=== PATIENT | male | born 1975 | race Caucasian/White ===

== ENCOUNTER 2024-04-25 11:02 | Emergency (ER) | payer OTHER, SELFPAY ==
--- NOTE | ~2024-04-25 | CT_ITS ---
EXAMINATION: CT abdomen pelvis w con DATE: 04/25/2024 14:31 INDICATION: Right buttocks abscess. TECHNIQUE: Computed tomography (CT) of the abdomen and pelvis was performed with 100 mL Omnipaque 350 intravenous contrast. Automated exposure control and iterative reconstruction technique were employe d. The dose-length product was 400.94 mGy-cm. COMPARISON: None. FINDINGS: The visualized portions of the lung bases are clear without pneumonia or pleural effusion. The heart size is normal. No pericardial effusion. The liver demonstrates focal steatosis adjacent to the ligamentum teres. The gallbladder, spleen, pancreas, adrenal glands, and left kidney are normal. There is cortical thinning of right kidney. The bladder is distended. The appendix is normal. There is a 14 x 18 mm right external iliac lymph node. There is no ascites. There is a 12.2 x 7.3 x 7.8 cm subcutaneous mass in the medial right buttock with infiltrative margin. There is severe lower lumbar spondylosis. IMPRESSION: 1. 4.2 x 7.3 x 7.8 cm mass in the medial right buttock, consistent with phlegmon versus early abscess . 2. Mildly enlarged right external iliac lymph node, likely reactive. Reviewed, dictated and finalized at location A. L EQUIPMENT OPERATOR IMPRESSION: 1. 4.2 x 7.3 x 7.8 cm mass in the medial right buttock, consistent with phlegmo n versus early abscess. 2. Mildly enlarged right external iliac lymph node, likely reactive.
[2024-04-25 11:05] VITALS: BP 153/101; PULSE 154; RESP 16; TEMP 36.8; O2SAT 100
[2024-04-25 11:07] VITALS: BP 158/115; PULSE 160; RESP 18; TEMP 36.2; O2SAT 99
--- NOTE | 2024-04-25 11:14 | ECG_ITS ---
Test Date: 2024-04-25 11:21:17 Measurements Intervals [place] Rate: 136 P: 85 MI: 146 QRS: 134 QRSD: 99 T: 42 QT: 304 QTc: 458 Interpretive Statements SINUS TACHYCARDIA ANTERIOR INFARCT, AGE INDETERMINATE HIGH LATERAL INFARCT, AGE INDETERMINATE BORDERLINE ST-T WAVE ABNORMALITY- INFERIOR LEADS BASELINE WANDER- II, V1, V3 ABNORMAL ECG No previous ECG available for comparison Electronically Signed On 04-25-2024 12:07:54 SHINGLES ROOFER by Price Robles D.O.
[2024-04-25 11:27] LABS: Basophils Absolute Auto 0.1 K/mm3 (0.0-0.1); Basophils Percent Auto 0.4 % (0.2-1.2); Eosinophils Absolute Auto 0.1 K/mm3 (0-0.3); Eosinophils Percent Auto 0.6 % (0-4.4); Hemoglobin 15.3 g/dL (14.0-18.0); Immature Granulocyte Absolute 0.05 K/mm3 (0.00-0.031); Immature Granulocyte Percent A 0.3 % (0-0.5); Lymphocytes Absolute Auto 2.52 K/mm3 (0.9-3.2); Lymphocytes Percent Auto 17.4 % (18.3-44.2); Mean Corpuscular HGB Conc 34.8 g/dl (32-36); Mean Corpuscular Hemoglobin 29.1 pg (26-34); Mean Corpuscular Volume 83.7 fl (80-100); Mean Platelet Volume 8.9 fl (7.4-10.4); Monocytes Absolute Auto 1.1 K/mm3 (0.1-0.6); Monocytes Percent Auto 7.5 % (2.6-8.5); Neutrophils Absolute Auto 10.7 K/mm3 (1.3-6.7); Neutrophils Percent Auto 73.8 % (45.5-73.1); Platelet Count Result 534 k/mm3 (150-375); Red Blood Count 5.26 M/mm3 (4.6-6.20); Red Cell Distribution Width 11.8 % (11.5-14.5); White Blood Count 14.5 K/mm3 (4.5-10.0)
[2024-04-25 11:45] LABS: Alanine Aminotransferase 28 U/L (6-50); Albumin Level 4.4 g/dL (3.5-5.1); Alkaline Phosphatase 232 U/L (38-126); Anion Gap 13 mmol/L (4-12); Aspartate Amino Transferase 28 U/L (17-59); Bilirubin,Total 0.9 mg/dL (0.2-1.3); Blood Urea Nitrogen 6 mg/dL (9-20); Calcium 9.6 mg/dL (8.4-10.2); Carbon Dioxide 25 mmol/L (22-30); Chloride 93 mmol/L (98-107); Estimated CRCL calculation 111 ml/min; Estimated Glomerular Filt Rate > 60; Glucose 471 mg/dL (65-110); Sodium 131 mmol/L (137-145)
--- NOTE | 2024-04-25 14:14 | ED.GENADULT ---
HPI - General Adult General Chief complaint: Unspecified Stated complaint: rectal abscess Time Seen by Provider: 04/25/24 13:22 History of Present Illness HPI narrative: 49-year-old male presenting with an abscess. States that for the last 4-5 days he has had a lot of swelling and pain in his right buttocks. States that has been draining blood and pus. States he has not really been eating much so he has not been taking any of his meds including his diabetes meds. States that he has been drinking plenty of fluids. His friend made him come in today for evaluation. He denies any other complaints or concerns. Related Data Home Medications Medication Instructions Recorded Confirmed aspirin 81 mg tablet,delayed 81 mg PO DAILY 11/14/19 02/27/20 release (Adult Low Dose Aspirin) Allergies Allergy/AdvReac Type Severity Reaction Status Date / Time No Known Allergies Allergy Verified 01/08/21 07:58 Review of Systems Review of Systems: All systems reviewed & are unremarkable except as noted in HPI and below PMFSH Past Medical History Medical History (Updated 04/25/24 @ 17:02 by Leeann Aquino MD) Coronary artery disease Essential (primary) hypertension Mixed hyperlipidemia Type 2 diabetes mellitus with hyperglycemia Family History Family History Grandparent Family history of type 2 diabetes mellitus Other Cerebrovascular accident Family history of cardiovascular disease Family history of lung cancer Hypertension Social History Social History Smoking status: Never smoker Alcohol intake: current Exam Narrative: GENERAL: Nontoxic, appears uncomfortable, pleasant cooperative HEAD: Normocephalic, atraumatic. EYES: PERRLA and EOMI. ENT: Grossly unremarkable. NECK: Supple. CHEST: No respiratory distress. HEART: Tachycardic, regular rate ABDOMEN: Soft, nontender, nondistended BACK: R buttocks indurated, tender, with a small opening draining purulence and blood, no crepitus; no erythema extending to perineum EXTREMITIES: Normal range of motion SKIN: Warm, dry, no rash. NEURO: Alert and oriented x3. PSYCH: Normal mood and affect. Course Vital Signs Vital signs: Vital Signs Temperature 98.2 F 04/25/24 11:05 Pulse Rate 154 H 04/25/24 11:05 Respiratory Rate 16 04/25/24 11:05 Blood Pressure 153/101 H 04/25/24 11:05 Pulse Oximetry 100 04/25/24 11:05 Temperature 97.6 F 04/25/24 17:23 Pulse Rate 110 H 04/25/24 17:23 Respiratory Rate 18 04/25/24 17:23 Blood Pressure 155/98 H 04/25/24 17:23 Pulse Oximetry 98 04/25/24 17:23 Oxygen Delivery Room Air 04/25/24 11:07 Procedures Abscess I/D other: Date of Incision: 04/25/24 Time of Incision: 16:57 Side (if applicable): right Local Anesthetic: lidocaine 1% Technique: incised with #11 blade and probed loculations Amount of fluid expressed (mL): 70 Irrigation: Yes Packing used?: plain I&D Results: Pus and Blood Abcess I&D Additional Comments: Abscess on the right buttocks was drained with large amount of bloody and purulent discharge Medical Decision Making MDM Narrative Medical decision making narrative: 49-year-old male presenting with concern for buttocks abscess. Patient is tachycardic on arrival, he states that he thinks that this is because he is in pain and he is anxious. Blood work with white count of 14.5. Patient is hyperglycemic, states that he has not taken any of his diabetes medicines as he has not really been eating. No evidence of DKA. CT of the abdomen pelvis shows a 7 x 8 x 4 cm mass in the right buttocks consistent with early abscess versus phlegmon. This was drained at bedside with drainage of a very large amount of purulent material. Packing placed, will start him on antibiotics given his diabetes, white count, mild surrounding cellulitis. Advised close PCP follow-up. Discussed appropriate wound care and return precautions. Patient is agreeable this plan. Discharged in stable condition. Differential Diagnosis Differential Diagnosis: Abscess, cellulitis, pilonidal cyst Medical Records Medical records reviewed: Yes I reviewed the external patient's medical records. Vital Signs Vital Signs: Vital Signs Temperature 98.2 F 04/25/24 11:05 Pulse Rate 154 H 04/25/24 11:05 Respiratory Rate 16 04/25/24 11:05 Blood Pressure 153/101 H 04/25/24 11:05 Pulse Oximetry 100 04/25/24 11:05 Temperature 97.6 F 04/25/24 17:23 Pulse Rate 110 H 04/25/24 17:23 Respiratory Rate 18 04/25/24 17:23 Blood Pressure 155/98 H 04/25/24 17:23 Pulse Oximetry 98 04/25/24 17:23 Oxygen Delivery Room Air 04/25/24 11:07 Lab Data Lab results reviewed: Yes I reviewed the patient's lab results. 04/25/24 11:22 04/25/24 11:22 Labs: Lab Results 04/25/24 04/25/24 Range/Units 11:22 14:21 WBC 14.5 H (4.5-10.0) K/mm3 RBC 5.26 (4.6-6.20) M/mm3 Hgb 15.3 (14.0-18.0) g/dL Hct 44.0 (42.0-52.0) % MCV 83.7 (80-100) fl MCH 29.1 (26-34) pg MCHC 34.8 (32-36) g/dl RDW 11.8 (11.5-14.5) % Plt Count 534 H (150-375) k/mm3 MPV 8.9 (7.4-10.4) fl Immature Gran % (Auto) 0.3 (0-0.5) % Neut % (Auto) 73.8 H (45.5-73.1) % Lymph % (Auto) 17.4 L (18.3-44.2) % [place] % (Auto) 7.5 (2.6-8.5) % Eos % (Auto) 0.6 (0-4.4) % Baso % (Auto) 0.4 (0.2-1.2) % Lymph # (Auto) 2.52 (0.9-3.2) K/mm3 [place] # (Auto) 1.1 H (0.1-0.6) K/mm3 Eos # (Auto) 0.1 (0-0.3) K/mm3 Baso # (Auto) 0.1 (0.0-0.1) K/mm3 Abs Immat Gran (auto) 0.05 H (0.00-0.031) K/mm3 Absolute Neuts (auto) 10.7 H (1.3-6.7) K/mm3 Absolute Nucleated RBC 0.000 (0.0-0.012) K/mm3 Nucleated RBC % 0.0 (0.0-0.2) % Sodium 131 L (137-145) mmol/L Potassium 4.0 (3.4-5.0) mmol/L Chloride 93 L (98-107) mmol/L Carbon Dioxide 25 (22-30) mmol/L Anion Gap 13 H (4-12) mmol/L BUN 6 L (9-20) mg/dL Creatinine 0.70 (0.7-1.3) mg/dL Estim Creat Clear Calc 111 ml/min Estimated GFR > 60 (59 - ) Glucose 471 H (65-110) mg/dL Lactic Acid 2.0 (0.7-2.0) mmol/L Calcium 9.6 (8.4-10.2) mg/dL Total Bilirubin 0.9 (0.2-1.3) mg/dL AST 28 (17-59) U/L ALT 28 (6-50) U/L Alkaline Phosphatase 232 H (38-126) U/L Total Protein 9.0 H (6.3-8.2) g/dL Albumin 4.4 (3.5-5.1) g/dL Imaging Data Radiologist's impression: ITS Impressions Abdomen/Pelvis CT 04/25/24 14:34 IMPRESSION: 1. 4.2 x 7.3 x 7.8 cm mass in the medial right buttock, consistent with phlegmon versus early abscess. 2. Mildly enlarged right external iliac lymph node, likely reactive. Critical Care Time Critical Care Time Critical Care Time: No Discharge Plan Discharge Clinical Impression: Type 2 diabetes mellitus with hyperglycemia, Abscess of buttock, right Patient Disposition: Home, Self-Care Condition: Stable Instructions: Antibiotic Form, Abscess (ED), Abscess Incision and Drainage (DC) Additional Instructions: We have treated you for a large abscess in your right buttocks. Please replace the packing every 24 hours for the next 3-4 days. Please apply warm compresses to encourage drainage. Please take the antibiotics as prescribed. Follow up closely with your PCP. If your symptoms worsen or other concerning symptoms arise, please return to the ER. Prescriptions: New cephalexin 500 mg capsule 500 mg PO Q6H 5 Days Qty: 20 0RF doxycycline hyclate 100 mg tablet 100 mg PO BID 5 Days Qty: 10 0RF No Action aspirin [Adult Low Dose Aspirin] 81 mg tablet,delayed release (DR/EC) 81 mg PO DAILY metoprolol tartrate 25 mg tablet 25 mg PO BID Qty: 60 5RF Xigduo XR 5-1,000 mg tablet, IR - ER, biphasic 24hr 1 tablet PO BID Qty: 60 3RF atorvastatin 40 mg tablet See Rx Instructions .ROUTE .COMPLEX Qty: 90 0RF Dose Instruction: TAKE 1 TABLET BY MOUTH DAILY Rx Instructions: TAKE 1 TABLET BY MOUTH DAILY ramipril 5 mg capsule See Rx Instructions .ROUTE .COMPLEX Qty: 90 0RF Dose Instruction: TAKE 1 CAPSULE BY MOUTH EVERY DAY Rx Instructions: TAKE 1 CAPSULE BY MOUTH EVERY DAY Follow-up/Referrals: Moo Hernadez MD [Primary Care Provider] -
[2024-04-25 14:15] VITALS: BP 149/102; PULSE 127; RESP 18; TEMP 36.3; O2SAT 99
[2024-04-25] MEDS: SODIUM CHLORIDE 0.9% IV 1,000 ML 999 ML IV CONT ×2 (14:33→15:12)
[2024-04-25] MEDS: KETOROLAC 15 MG/ML VIAL (*BKC) IV PUSH (15:21)
[2024-04-25] MEDS: MORPHINE SULFATE (*CRX) 4 MG/ML INJ IV PUSH (15:21)
[2024-04-25 17:23] VITALS: BP 155/98; PULSE 110; RESP 18; TEMP 36.4; O2SAT 98
== END 2024-04-25 17:25 | disposition home or self-care (01) ==
PROVIDERS: Emergency Medicine; Emergency Provider Emergency Medicine; PCP Family Medicine
DX: I25.10 Atherosclerotic heart disease of native coronary artery without angina pectoris (principal); I10 Essential (primary) hypertension; E78.5 Hyperlipidemia, unspecified; E11.65 Type 2 diabetes mellitus with hyperglycemia; L02.31 Cutaneous abscess of buttock
CPT/HCPCS: 10061; 36415; 74177; 80053; 83605; 85025; 93005; 96361; 96374; 96375; 99284; J1885; J2270; J7030; Q9967

== ENCOUNTER 2024-10-09 12:55 | Inpatient (IN) | payer OTHER, SELFPAY ==
[2024-10-09] VITALS (11 sets, daily range): BP systolic 110–149; BP diastolic 70–94; PULSE 112–141; RESP 16–33; TEMP 37.6–39.5; O2SAT 96–100; BMI 26.1
--- NOTE | ~2024-10-09 | XR_ITS ---
EXAMINATION: XR chest 1V portable DATE: 10/15/2024 13:23 INDICATION: Cough TECHNIQUE: frontal view of the chest was obtained. COMPARISON: Chest radiograph dated 05/04/2016 FINDINGS: Perihilar predominant interstitial and airspace opacities in both lungs with peripheral Esther B-line s at the bilateral mid and lower lung zones most consistent with mild to moderate pulmonary edema. No pleural effusion or pneumothorax. Heart size within normal limits for AP technique. Median sternotom y wires and mediastinal surgical clips are seen, likely from prior coronary artery bypass grafting. IMPRESSION: 1. Bilateral lung disease with appearance most consistent with mild to moderate pulmonary edema. Diff erential would include pneumonia. Reviewed, dictated and finalized at location A. IMPRESSION: 1. Bilateral lung disease with appearance most consistent with mild to moderate pulmonary edema. Differential would include pneumonia.
--- NOTE | ~2024-10-09 | CT_ITS ---
CT brain wo con Ordering provider: John Valera MD History: 49 years Male with . Posterior scalp abscess . Comparison: None. Technique: CT of the head without contrast. Radiation reduction technique utilized. The dose-length product was 605.33 mGy-cm. FINDINGS: BRAIN PARENCHYMA AND CSF SPACES: No midline shift, mass effect or hemorrhage. The brain parenchyma a nd CSF spaces are otherwise normal. VISUALIZED PARANASAL SINUSES: Well aerated. MASTOIDS: Well aerated. BONES: The bones appear intact. SOFT TISSUES: Visualized nasopharynx is normal. Scalp hematoma in the right parieto-occipital area. Otherwise, Superficial soft tissues are normal. IMPRESSION: No acute intracranial findings. Reviewed, dictated and finalized at location A.
--- OUTSIDE RECORDS SUMMARY | 2024-10-09 12:57 | XMS_ITS | Clinical Summary ---
Author Organization [facility] Address [address] [place] [address] Care Team Providers Care Surgical Technologist Name Role Phone Unavailable Primary Care Provider Unavailabl e Immunizations Immunization Administration Dates Next Due Covid-19, Mrna, Lnp-s, Pf, 30 Mcg/0.3 Ml Dose (P fizer) 06/05/2021 Social History Tobacco Use Types Packs/Day Years Used Date Smoking Tobacco: Never Assessed Sex and Gender Information Value Date Recorded Sex Assigned at Not on file Legal Sex Male 12:01 PM TRANSPORT MEDIC Gender Identity Not on file Sexual Orientation Not on file Plan of Treatment Health Maintenance Due Date Last Done Comments Hepatitis C Virus (HCV) Screening 1974 TdaP Immunization 1974 Hepatitis B Immunization (1 of 3 - 19+ 3-dose series) 1993 Colonoscopy 2019 Colorectal Cancer Screening 2019 Cologuard 01/28/2024 Immunochemical Fecal Occult Blood 01/28/2024 Pneumococcal Immunization (5 0+ years) (1 of 1 - PCV) 01/28/2024 Zoster Immunization (1 of 2) 01/28/2024 Influenza Immunization (#1) 2024 SARS-COV-2 Immunization ( - season) 2024 06/05/2021, 08/11/2020, 07/21/2020 Respiratory Syncytial Virus (RSV) Immunization (Adult) (1 - 1-dose 75+ series) 2049 Meningococcal Immunization (ACWY) Aged Out No longer eligible b ased on patient's age to complete this topic Rotavirus Immunization Aged Out No lo nger eligible based on patient's age to complete this topic
--- OUTSIDE RECORDS SUMMARY | 2024-10-09 12:57 | XMS_ITS | Encounter Summary ---
Author Organization [facility] Address [address] [place] [address] Care Team Providers Care Forest Resource Specialist Name Role Phone Moo Hernadez MD Primary Care Provider + [phone] Encounter Details Date Type Department Care Team (Late st Contact Info) Description 09/11/2016 Orders Only [facility] ProviderDaphnye MD [address] [place] [id number] Social History Tobacco Use Types Packs/Day Years Used Date Smoking Tobacco: Never Alcohol Use Standard Drinks/Week Comments No 0 (1 standard drink = 0.6 oz pur e alcohol) Sex and Gender Information Value Date Recorded Sex Assigned at Not on file 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 Historical Provider [facility] SARAH STACY Final Result documented in this encounter Visit Diagnoses Not on filedocumented in this encounter Care Teams Forest Resource Specialist Relationship Specialty Start Date End Date Moo Hernadez MD PCP - General 08/29/16 documented as of this encounter
--- OUTSIDE RECORDS SUMMARY | 2024-10-09 12:57 | XMS_ITS | Clinical Summary ---
Author Organization [facility] [address] Address [address] [place] [address] Care Team Providers Care Magazine Filler Name Role Phone Moo Hernadez MD Primary Care Provider [phone] Allergies No known active allergies Medications metoprolol XL (TOPROL-XL) 25 mg 24 hr tablet take 1 tablet by oral route 3 times every day 0 0 6 Active ramipril (ALTACE) 5 mg capsule take 1 capsule by oral route every day 0 0 6 Active metFORMIN (GLUCOPHAGE) 500 mg tablet take 1 tablet by oral route 2 times every day with morning and evening meals 0 0 6 Active atorvastatin (LIPITOR) 40 mg tablet take 1 tablet by oral route every day 0 0 6 Active nitroglycerin (NITROSTAT) 0.[address] 1 tablet by sublingual route at the 1st sign of attack; may repeat every 5 min until relief; if pain persists after 3 tablets in 15 min, prompt medical attention is recommended 0 0 6 Active aspirin (ASPIR-VELIA) 325 mg EC tablet take 1 tablet by oral route every day 0 0 7 Active Active Problems Problem Noted Date Diagnosed Date Coronary artery disease [place] coronary artery of [place] heart without angina pectoris 03/26/2017 Hx of CABG 03/26/2017 Chronic coronary artery disease 06/10/2016 Medical History Medical History Date Comments Coronary artery disease Family History Medical History Relation Name Comments Heart attack Father 2 Myocardial infa rction; Cause of : Myocardial infarction Other Mother 2 Alive and well; Relation Name Status Comments Father 1 (Age 51) Father 2 Mother 1 Alive Mother 2 Social History Tobacco Use Types Packs/Day Years Used Date Smoking Tobacco: Never Smokeless Tobacco: Never Alcohol Use Standard Drinks/Week Comments No 0 (1 standard drink = 0.6 oz pur e alcohol) Personal Safety Answer Date Recorded Getting School Help Needed Not on file 08/14 Sex and Gender Information Value Date Recorded Sex Assigned at Not on file 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 Gender Identity Not on file Sexual Orientation Straight 02/02/2020 11 :20 AM CDT Obstetrics History Last Filed Vital Signs Vital Sign Reading Time Taken Comments Blood Pressure 128/76 03/26/2017 8:25 AM CDT Pulse 66 03/26/2017 8:25 AM CDT Temperature - - Respiratory Rate 14 03/26/2017 8:25 AM CDT Oxygen Saturation - - Inhaled Oxygen Concentration - - Weight 85.7 kg (189 lb) 03/26/2017 8:25 AM CDT Height 167.6 cm (5' 6 ) 03/26/2017 8:25 AM CDT Body Mass Index 30.51 03/26/2017 8:25 AM CDT Plan of Treatment Not on file Insurance Care Teams Magazine Filler Relationship Specialty Start Date End Date Moo Hernadez MD PCP - General 08/29/16
--- OUTSIDE RECORDS SUMMARY | 2024-10-09 12:57 | XMS_ITS | Referral Summary ---
Author Organization [facility] [place] [address] Address [address] [place] [address] Care Team Providers Care Equal Opportunity Specialist Name Role Phone Moo Hernadez MD Primary Care Provider [phone] Allergies No known active allergies Medications metoprolol [...] Diagnosed Date Coronary artery disease invo lving [place] coronary artery of [place] heart without angina pectoris 03/26/2017 Hx of CABG 03/26/2017 Chronic coronary artery disease 06/10/2016 Social History Tobacco Use Types Packs/Day Years Used Date Smoking Tobacco: Never Smokeless Tobacco: Never Alcohol Use Standard Drinks/Week Comments No 0 (1 standard drink = 0.6 oz pur e alcohol) Personal Safety Answer Date Recorded Getting School Help Needed Not on file 08/14 Sex and Gender Information Value Date Recorded Sex Assigned at Not on file 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
--- NOTE | 2024-10-09 13:11 | ED.GENADULT ---
HPI - General Adult General Chief complaint: Skin/Abscess/Foreign Body Stated complaint: Poss abscess on back of head Time Seen by Provider: 10/09/24 13:01 History of Present Illness HPI narrative: 49-year-old male present to the emergency department for evaluation for abscess to the back of his scalp. Patient states these both started just a few days ago. Patient reports decreased p.o. intake and increased generalized weakness. Patient states he has had abscesses before. Patient does report striking his head lightly and her desk staff few days ago prior to the abscess formation. Patient does have history of type 2 diabetes. Related Data Home Medications ?Medication ?Instructions ?Recorded ?Confirmed ?Last Taken ?Type aspirin 81 mg tablet,delayed 81 mg PO DAILY 11/14/19 10/09/24 10/07/24 History release (Adult Low Dose Aspirin) Allergies Allergy/AdvReac Type Severity Reaction Status Date / Time No Known Allergies Allergy Verified 10/09/24 12:56 Review of Systems Review of Systems: All systems reviewed & are unremarkable except as noted in HPI and below PMFSH Past Medical History Medical History (Updated 10/09/24 @ 15:07 by Ce Hu APRN) Essential (primary) hypertension Coronary artery disease Mixed hyperlipidemia Type 2 diabetes mellitus with hyperglycemia Family History Family History Grandparent Family history of type 2 diabetes mellitus Other Cerebrovascular accident Family history of cardiovascular disease Family history of lung cancer Hypertension Social History Social History Smoking status: Never smoker Second hand tobacco smoke exposure: No Alcohol intake: former Substance use type: does not use Do You Feel Safe in your Home?: Yes Lack of Transportation: No Lack of Food: Never True Current Housing: I Have Housing Concerned About Future Housing: No Difficulty Paying Gas/Electric Bills: No Difficulty Paying for Meds: No Currently Unemployed: No Education: Associate Degree Difficulty w/ Childcare or Family Care: No Spiritual care concerns: No Exam Narrative: APPEARANCE: Ill-appearing HEAD: normocephalic, atraumatic. EYES: PERRLA/EOMI, conjunctivae clear. NOSE: Normal no drainage EARS:TMS clear with good light reflex. THROAT: Pharynx clear, no exudate. NECK: Supple. No adenopathy, no masses. RESPIRATORY: Airway patent, respirations nonlabored. Clear to auscultation bilaterally, no rales, rhonchi, wheezing. CARDIOVASCULAR: Regular rate and rhythm without murmurs rubs or gallops. ABDOMINAL: Soft, nontender, nondistended, normal bowel sounds MUSCULOSKELETAL: Moves all extremities. Strength/ROM intact, No edema, No calf tenderness. NEURO: Alert. Cranial nerves II through XII intact. Grossly intact SKIN: Fluctuant posterior scalp abscess Course Vital Signs Vital signs: Vital Signs Temperature 102.4 F H 10/09/24 13:16 Pulse Rate 141 H 10/09/24 13:16 Respiratory Rate 28 H 10/09/24 13:16 Blood Pressure 149/94 H 10/09/24 13:16 Pulse Oximetry 100 10/09/24 13:16 Temperature 100.2 F H 10/09/24 16:00 Pulse Rate 122 H 10/09/24 16:00 Respiratory Rate 30 H 10/09/24 16:00 Blood Pressure 128/80 10/09/24 16:00 Pulse Oximetry 97 10/09/24 16:00 Oxygen Delivery Room Air 10/09/24 16:00 Procedures Abscess I/D scalp: Time of Incision: 14:24 Local Anesthetic: lidocaine 1% and with epi Amount of anesthesia used (mL): 3 Technique: incised with #11 blade Amount of fluid expressed (mL): 10 Irrigation: Yes Packing used?: none I&D Results: Pus and Blood Medical Decision Making MDM Narrative Medical decision making narrative: 49-year-old male present to the emergency department for evaluation for posterior scalp abscess. Patient does have a fluctuant abscess on his posterior scalp that was I and D does describe in the procedure note. Cultures were ordered. Patient was also found to be tachycardic and hyperglycemic and be in DKA. Patient was treated with 2 L of lactated Ringer's and started on insulin bolus and insulin infusion. Patient was also started on Rocephin and vancomycin with blood cultures and wound cultures pending. Case was discussed with the editor house organ and patient was accepted for admission to the ICU. Patient was discussed with the hospitalist as well. Differential Diagnosis Differential Diagnosis: Abscess, hyperglycemia, sepsis, DKA Vital Signs Vital Signs: Vital Signs Temperature 102.4 F H 10/09/24 13:16 Pulse Rate 141 H 10/09/24 13:16 Respiratory Rate 28 H 10/09/24 13:16 Blood Pressure 149/94 H 10/09/24 13:16 Pulse Oximetry 100 10/09/24 13:16 Temperature 100.2 F H 10/09/24 16:00 Pulse Rate 122 H 10/09/24 16:00 Respiratory Rate 30 H 10/09/24 16:00 Blood Pressure 128/80 10/09/24 16:00 Pulse Oximetry 97 10/09/24 16:00 Oxygen Delivery Room Air 10/09/24 16:00 Lab Data Lab results reviewed: Yes I reviewed the patient's lab results. 10/09/24 13:39 10/09/24 16:00 Labs: Lab Results 10/09/24 10/09/24 10/09/24 Range/Units 13:38 13:39 14:03 WBC 15.8 H (4.5-10.0) K/mm3 RBC 5.21 (4.6-6.20) M/mm3 Hgb 14.1 (14.0-18.0) g/dL Hct 40.9 L (42.0-52.0) % MCV 78.5 L (80-100) fl MCH 27.1 (26-34) pg MCHC 34.5 (32-36) g/dl RDW 12.7 (11.5-14.5) % Plt Count 321 (150-375) k/mm3 MPV 10.0 (7.4-10.4) fl Immature Gran % (Auto) 1.3 H (0-0.5) % Neut % (Auto) 84.9 H (45.5-73.1) % Lymph % (Auto) 5.7 L (18.3-44.2) % [place] % (Auto) 7.2 (2.6-8.5) % Eos % (Auto) 0.4 (0-4.4) % Baso % (Auto) 0.5 (0.2-1.2) % Lymph # (Auto) 0.90 (0.9-3.2) K/mm3 [place] # (Auto) 1.1 H (0.1-0.6) K/mm3 Eos # (Auto) 0.1 (0-0.3) K/mm3 Baso # (Auto) 0.1 (0.0-0.1) K/mm3 Abs Immat Gran (auto) 0.20 H (0.00-0.031) K/mm3 Absolute Neuts (auto) 13.5 H (1.3-6.7) K/mm3 Absolute Nucleated RBC 0.000 (0.0-0.012) K/mm3 Nucleated RBC % 0.0 (0.0-0.2) % Sodium 119 L* (137-145) mmol/L Potassium 4.0 (3.4-5.0) mmol/L Chloride 79 L (98-107) mmol/L Carbon Dioxide 15 L (22-30) mmol/L Anion Gap 25 H (4-12) mmol/L BUN 16 D (9-20) mg/dL Creatinine 0.87 (0.7-1.3) mg/dL Estim Creat Clear Calc 105 ml/min Estimated GFR > 60 (59 - ) Glucose 543 H* (65-110) mg/dL Hemoglobin A1c 12.0 H (<5.7) % Lactic Acid 3.0 H (0.7-2.0) mmol/L Calcium 8.6 (8.4-10.2) mg/dL Phosphorus 3.0 (2.5-4.5) mg/dL Magnesium 2.4 H (1.6-2.3) mg/dL Total Bilirubin 1.4 H (0.2-1.3) mg/dL AST 41 (17-59) U/L ALT 35 (6-50) U/L Alkaline Phosphatase 193 H (38-126) U/L C-Reactive Protein 32.1 H (<1.0) mg/dL Total Protein 8.0 (6.3-8.2) g/dL Albumin 4.4 (3.5-5.1) g/dL Beta-Hydroxybutyrate/Acetoacetate 4.05 H (0.02-0.27) mmol/L Urine Color Yellow (Yellow) Urine Appearance Cloudy H (Clear) Urine pH 5.0 (5.0-9.0) Ur Specific [place] 1.031 (1.001-1.035) Urine Protein 1+ H (Negative) mg/dL Urine Glucose (UA) 3+ H (Negative) mg/dL Urine Ketones 3+ H (Negative) mg/dL Ur Blood (Man) 2+ H (Negative) Urine Nitrate Negative (Negative) Urine Bilirubin Negative (Negative) Urine Urobilinogen 1.0 (<2.0) mg/dL Add Ur Microanalysis Reviewed Leukocyte Esterase Rfl Negative (Negative) EDA/UL Urine RBC 0-2 (0-2) /hpf Urine WBC 0-5 (0-3) /hpf Ur Squamous Epith Cells Occasional (Few) /hpf Urine Bacteria None seen /hpf Urine Casts 3-5 Ethyl Alcohol < 10 (<10) mg/dL Imaging Data Radiologist's impression: Technique: CT of the head without contrast. Radiation reduction technique utilized. The dose-length product was 605.33 mGy-cm. FINDINGS: BRAIN PARENCHYMA AND CSF SPACES: No midline shift, mass effect or hemorrhage. The brain parenchyma and CSF spaces are otherwise normal. VISUALIZED PARANASAL SINUSES: Well aerated. MASTOIDS: Well aerated. BONES: The bones appear intact. SOFT TISSUES: Visualized nasopharynx is normal. Scalp hematoma in the right parieto-occipital area. Otherwise, Superficial soft tissues are normal. IMPRESSION: No acute intracranial findings. Critical Care Time Critical Care Time Critical Care Time: Yes Total Critical Care Time: 35 Discharge Plan Discharge Clinical Impression: Type 2 diabetes mellitus with hyperglycemia, Abscess, DKA (diabetic ketoacidosis), Acute hyponatremia Patient Disposition: Still a Patient Condition: Critical
--- NOTE | 2024-10-09 13:14 | ECG_ITS ---
Test Date: 2024-10-09 13:19:55 Measurements Intervals [place] Rate: 139 P: 95 TX: 140 QRS: 107 QRSD: 109 T: 69 QT: 365 QTc: 557 Interpretive Statements SINUS TACHYCARDIA ARM LEADS REVERSED [INVERTED P AND QRS IN I] ANTERIOR INFARCT, AGE INDETERMINATE ABNORMAL RHYTHM ECG Compared to ECG 04/25/2024 11:21:17 NO SIGNIFICANT CHANGES Electronically Signed On 10-11-2024 14:07:00 CDT by Verónica Barreto M.D.
--- OUTSIDE RECORDS SUMMARY | 2024-10-09 13:29 | XMS_ITS | Encounter Summary ---
Author Organization [facility] Address [address] [place] [address] Care Team Providers Care Medical Equipment Sales Name Role Phone Moo Hernadez MD Primary Care Provider + [phone] Encounter Details Date Type Department Care Team (Late st Contact Info) Description 09/11/2016 Orders Only [facility] ProviderDaphney MD [address] [place] [id number] Social History Tobacco Use Types Packs/Day Years Used Date Smoking Tobacco: Never Alcohol Use Standard Drinks/Week Comments No 0 (1 standard drink = 0.6 oz pur e alcohol) Sex and Gender Information Value Date Recorded Sex Assigned at Not on file 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
--- OUTSIDE RECORDS SUMMARY | 2024-10-09 13:29 | XMS_ITS | Clinical Summary ---
Author Organization 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
--- OUTSIDE RECORDS SUMMARY | 2024-10-09 13:29 | XMS_ITS | Referral Summary ---
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
--- OUTSIDE RECORDS SUMMARY | 2024-10-09 13:29 | XMS_ITS | Clinical Summary ---
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
[2024-10-09] MEDS: ACETAMINOPHEN 500 MG TABLET 1000 MG PO (13:33)
[2024-10-09] MEDS: LACTATED RINGERS 2,000 ML 999 ML IV CONT (13:34)
[2024-10-09 13:48] LABS: Basophils Absolute Auto 0.1 K/mm3 (0.0-0.1); Basophils Percent Auto 0.5 % (0.2-1.2); Eosinophils Absolute Auto 0.1 K/mm3 (0-0.3); Eosinophils Percent Auto 0.4 % (0-4.4); Hematocrit 40.9 % (42.0-52.0); Hemoglobin 14.1 g/dL (14.0-18.0); Immature Granulocyte Percent A 1.3 % (0-0.5); Lymphocytes Percent Auto 5.7 % (18.3-44.2); Mean Corpuscular HGB Conc 34.5 g/dl (32-36); Mean Corpuscular Hemoglobin 27.1 pg (26-34); Mean Corpuscular Volume 78.5 fl (80-100); Monocytes Absolute Auto 1.1 K/mm3 (0.1-0.6); Monocytes Percent Auto 7.2 % (2.6-8.5); Neutrophils Absolute Auto 13.5 K/mm3 (1.3-6.7); Neutrophils Percent Auto 84.9 % (45.5-73.1); Platelet Count Result 321 k/mm3 (150-375); Red Blood Count 5.21 M/mm3 (4.6-6.20); Red Cell Distribution Width 12.7 % (11.5-14.5); White Blood Count 15.8 K/mm3 (4.5-10.0)
[2024-10-09 14:05] LABS: Ethanol < 10 mg/dL (<10)
[2024-10-09 14:09] LABS: Calcium 8.6 mg/dL (8.4-10.2); Carbon Dioxide 15 mmol/L (22-30); Chloride 79 mmol/L (98-107); Estimated CRCL calculation 105 ml/min; Estimated Glomerular Filt Rate > 60; Glucose 543 mg/dL (65-110)
[2024-10-09 14:10] LABS: Anion Gap 25 mmol/L (4-12); Bilirubin,Total 1.4 mg/dL (0.2-1.3); Sodium 119 mmol/L (137-145)
[2024-10-09 14:11] LABS: Beta-Hydroxybutyrate/Acetoacetate 4.05 mmol/L (0.02-0.27)
[2024-10-09 14:11] LABS: Alanine Aminotransferase 35 U/L (6-50); Albumin Level 4.4 g/dL (3.5-5.1); Alkaline Phosphatase 193 U/L (38-126); Aspartate Amino Transferase 41 U/L (17-59); Blood Urea Nitrogen 16 mg/dL (9-20)
[2024-10-09] MEDS: INSULIN HUMAN REGULAR (*BKC) 100 UNITS/ML 15 UNITS IV PUSH (14:20)
--- NOTE | 2024-10-09 14:23 | PC.NURSE ---
Pt to CT via stretcher on tele and O2 monitor
[2024-10-09 14:37] LABS: Add Urine Microscopic? YES; Appearance Urine Cloudy (Clear); Bacteria Urine None Seen /hpf; Bilirubin Urine Negative (Negative); Blood Urine 2+ (Negative); Color Urine Yellow (Yellow); Glucose Urine UA 3+ mg/dL (Negative); Ketones Urine 3+ mg/dL (Negative); Leukocyte Esterase Ur Negative LEU/UL (Negative); Need Manual Microscopic Reviewed; Nitrate Urine Negative (Negative); Protein Urine 1+ mg/dL (Negative); RBC Urine 0-2 /hpf (0-2); Specific Grav Ur 1.031 (1.001-1.035); Squamous Epithelial Cell Urine Occasional /hpf (Few); WBC Urine 0-5 /hpf (0-3)
[2024-10-09] MEDS: INSULIN HUMAN REGULAR (*BKC) 100 UNITS in SODIUM CHLORIDE 0.9% IV 99 ML 10 UNITS IV CONT (14:37)
[2024-10-09 14:38] LABS: CRP 32.1 mg/dL (<1.0); Magnesium 2.4 mg/dL (1.6-2.3)
--- NOTE | 2024-10-09 14:39 | P.HP_ITS ---
H&P: HPI History of Present Illness Date/Time: 10/09/24 14:39 Chief Complaint: Scalp abscess Narrative: 49-year-old male with past medical history of CABG x3, diabetes type 2, hyperlipidemia, CAD and hypertension presents the hospital with scalp abscess. Patient states that about a week ago he noticed he had abscesses on the back of his head. He states that he did not do anything about it in less than laid a round his house and slept. Patient complains of fever and chills, nausea vomiting, and decreased oral intake. His lab work shows leukocytosis at 15.8, hyponatremia of 119, chloride of 79, carbon dioxide 15 anion gap of 25, glucose of 543, lactic acid 3.0, magnesium 2.4, C-reactive protein 32.1, beta hydroxybutyrate of 4.05. Urine shows 3+ glucose 3+ ketones negative leukocyte esterase negative nitrate. Head CT and blood cultures pending. EKG shows sinus tachycardia with QTC of 557. Patient had T-max of 102.4?, heart rate 141, respirations 28 and hypertensive 155/98. In the ED he received 15 units of regular IV insulin followed by insulin drip vancomycin, Rocephin, and I&D of abscess. Review of Systems Review of Systems: 12 systems were reviewed and are negativ e except for as per HPI. [facility] Past Medical History Medical History (Updated 10/09/24 @ 23:59 by Ce Hu, KURT) Essential (primary) hypertension Coronary artery disease Mixed hyperlipidemia Type 2 diabetes mellitus with hyperglycemia Family History Family History Grandparent Family history of type 2 diabetes mellitus Other Cerebrovascular accident Family history of cardiovascular disease Family history of lung cancer Hypertension Social History Social History Smoking status: Never smoker Second hand tobacco smoke exposure: No Alcohol intake: former Substance use type: does not use Do You Feel Safe in your Home?: Yes Lack of Transportation: No Lack of Food: Never True Current Housing: I Have Housing Concerned About Future Housing: No Difficulty Paying Gas/Electric Bills: No Difficulty Paying for Meds: No Currently Unemployed: No Education: Associate Degree Difficulty w/ Childcare or Family Care: No Spiritual care concerns: No Meds Home Medications and Allergies Home Medications ?Medication ?Instructions ?Recorded ?Confirmed ?Type aspirin 81 mg tablet,delayed 81 mg PO DAILY 11/14/19 10/09/24 History release (Adult Low Dose Aspirin) metoprolol tartrate 25 mg tablet 25 mg PO BID #60 tabs 06/05/21 10/09/24 Rx dapagliflozin propaned 5 1 tablet PO BID diabetes #60 ea 07/01/21 10/09/24 Rx mg-metformin ER 1,000 mg tablet, ext rel 24hr (Xigduo XR) atorvastatin 40 mg tablet See Rx Instructions .Route 08/26/21 10/09/24 Rx .COMPLEX #90 tabs ramipril 5 mg capsule See Rx Instructions .Route 08/26/21 10/09/24 Rx .COMPLEX #90 caps Allergies Allergy/AdvReac Type Severity Reaction Status Date / Time No Known Allergies Allergy Verified 10/09/24 12:56 Vital Signs Vital Signs - 24 hr 10/09/24 13:16 10/09/24 13:28 10/09/24 14:36 Temperature 102.4 F H 100 F H Pulse Rate 141 H 140 H 129 H Respiratory Rate 28 H 26 H Blood Pressure 149/94 H 122/80 Pulse Oximetry 100 98 Exam Narrative: General: Ill-appearing Scalp: Elia wrap HEENT: normocephalic, atraumatic. Mucous membranes moist. EOMI, PERRLA, bilateral sclera anicteric, no conjunctival injection. Neck supple without JVD, lymphadenopathy, or bruit. Respiratory: clear to ascultation bilaterally. Tachypneic Cardiovascular: Regular rate and rhythm, normal S1-S2 upon ascultation. No murmurs, rubs, or clicks. PMI is nondisplaced, capillary refill less than 3 second. Abdomen: Soft, round, no pulsatile masses, nondistended and nontender. No rebound, no guarding. No CVA tenderness, no hepatosplenomegaly. Bowel sounds present to all four quadrants. No high pitch or tinkling sounds, resonant to percussion. Extremities: No cyanosis, clubbing, or edema present. Pulses are palpable 2/2. Active ROM to all four extremities. Neuro: Alert and orientated x 4. PERRLA. Cranial nerves 2-12 intact without focal deficit. Skin: Warm, dry, and intact, without rash, erythema, or lesion. Psych: pleasant, cooperative, normal speech, normal affect, no hallucinations, no dysarthia H&P: Results Labs Labs: Short CBC 10/09/24 Range/Units 13:39 WBC 15.8 H (4.5-10.0) K/mm3 Hgb 14.1 (14.0-18.0) g/dL Hct 40.9 L (42.0-52.0) % Plt Count 321 (150-375) k/mm3 BMP 10/09/24 13:38 Sodium 119 L* Potassium 4.0 Chloride 79 L Carbon Dioxide 15 L BUN 16 D Creatinine 0.87 Glucose 543 H* Calcium 8.6 Liver Function 10/09/24 Range/Units 13:38 Total Bilirubin 1.4 H (0.2-1.3) mg/dL AST 41 (17-59) U/L ALT 35 (6-50) U/L Alkaline Phosphatase 193 H (38-126) U/L Albumin 4.4 (3.5-5.1) g/dL Assessment and Plan Assessment and plan (1) Abscess: Code(s): L02.91 - Cutaneous abscess, unspecified Status: Acute Assessment and Plan: Sepsis secondary to scalp abscess I&D in ED Fluid bolus Rocephin and vancomycin Repeat lactic Blood cultures pending Wound culture pending (2) DKA (diabetic ketoacidosis): Code(s): E11.10 - Type 2 diabetes mellitus with ketoacidosis without coma Status: Acute Assessment and Plan: BMP q.4 NPO Insulin drip per protocol Bolus 3 L fluid for dehydration (3) Acute hyponatremia: Code(s): E87.1 - Hypo-osmolality and hyponatremia Status: Acute Assessment and Plan: Slowly improving with IV hydration BMP Q 4 (4) Type 2 diabetes mellitus with hyperglycemia: Code(s): E11.65 - Type 2 diabetes mellitus with hyperglycemia Status: Acute Assessment and Plan: Hemoglobin A1c 12 certified diabetes educator Currently on insulin drip (5) Coronary artery disease: Code(s): I25.10 - Atherosclerotic heart disease of [place] coronary artery without angina pectoris Status: Acute (6) Essential (primary) hypertension: Code(s): I10 - Essential (primary) hypertension Status: Acute Assessment and Plan: Hold home antihypertensive meds (7) Mixed hyperlipidemia: Code(s): E78.2 - Mixed hyperlipidemia Status: Acute (8) Sepsis: Code(s): A41.9 - Sepsis, unspecified organism Status: Acute (9) Tachycardia: Code(s): R00.0 - Tachycardia, unspecified Status: Acute Assessment and Plan: Continue home metoprolol Quality VTE Prophylaxis VTE prophylaxis: mechanical ordered and pharmacologic ordered Hospitalist MIPS Advance Care Plan I have confirmed that the patient's Advanced Care Plan is present, code status is documented, or surrogate decision maker is listed in patient medical record.: Yes Medication Reconciliation I have utilized all available resources to obtain, update and review the patients current medications (includes all prescriptions, OTC, herbals, cannabis, and nutritional supplements).: Yes
[2024-10-09] MEDS: cefTRIAXone 2 GM/NS 100 ML 2 GM/100 ML BAG IVPB (14:41)
[2024-10-09 14:43] LABS: Glucose Point of Care 431 mg/dl (65-105)
[2024-10-09] MEDS: VANCOMYCIN 1,250 MG/NS 250 ML 1,250 MG/250 ML BAG 166.67 MG IVPB ×2 (15:12→16:47)
[2024-10-09 15:18] LABS: Glucose Point of Care 376 mg/dl (65-105)
--- NOTE | 2024-10-09 15:39 | ADMGEN ---
This patient, Guzman Gandara, was admitted to Intensive Care Unit-6. Patient/family oriented to hospital policies and general routines including ID bracelet, bed and alarms, visiting hours, pain management, procedures, bathroom and other care routines, personal items, smoking policy, room service/diet, and visiting hours. Information on how to activate the Rapid Response Team has been discussed. Patient/Family are encouraged to report perceived risks to care and to ask questions if they do not understand what they are told or what they should do.
[2024-10-09 15:45] LABS: Reflex Lactic Acid Yes or No Add Lactic
[2024-10-09] MEDS: SODIUM CHLORIDE 0.9% IV 1,000 ML 150 ML IV CONT (15:46)
[2024-10-09 16:17] LABS: Anion Gap 16 mmol/L (4-12); Blood Urea Nitrogen 16 mg/dL (9-20); Carbon Dioxide 17 mmol/L (22-30); Chloride 90 mmol/L (98-107); Estimated CRCL calculation 98 ml/min; Estimated Glomerular Filt Rate > 60; Glucose 239 mg/dL (65-110); Lactic Acid 2.6 mmol/L (0.7-2.0); Sodium 123 mmol/L (137-145)
[2024-10-09 16:39] LABS: Glucose Point of Care 259 mg/dl (65-105)
[2024-10-09] MEDS: KCL 20 MEQ/SW 100 ML 100 ML 50 MEQ IVPB (16:44)
[2024-10-09] MEDS: POTASSIUM CHLORIDE 20 MEQ PACKET (FOR LIQUID) 40 MEQ PO (16:45)
[2024-10-09] MEDS: KCL 20 MEQ/D5/0.45% SOD CHL 1,000 ML 150 ML IV CONT (17:00)
[2024-10-09 17:08] LABS: Glucose Point of Care 195 mg/dl (65-105)
[2024-10-09 18:58] LABS: Glucose Point of Care 143 mg/dl (65-105)
[2024-10-09 18:58] LABS: Glucose Point of Care 214 mg/dl (65-105)
[2024-10-09 20:02] LABS: Glucose Point of Care 339 mg/dl (65-105)
--- OUTSIDE RECORDS SUMMARY | 2024-10-09 20:04 | XMS_ITS | Clinical Summary ---
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
--- OUTSIDE RECORDS SUMMARY | 2024-10-09 20:04 | XMS_ITS | Referral Summary ---
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
--- OUTSIDE RECORDS SUMMARY | 2024-10-09 20:04 | XMS_ITS | Clinical Summary ---
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
--- OUTSIDE RECORDS SUMMARY | 2024-10-09 20:04 | XMS_ITS | Encounter Summary ---
Author Organization [facility] Address [address] [place] [address] Care Team Providers Care Blanker Operator Name Role Phone Moo Hernadez MD Primary Care Provider + [phone] Encounter Details Date Type Department Care Team (Late st Contact Info) Description 09/11/2016 Orders Only [facility] ProviderDaphney MD [address] [place] [id number] Social History Tobacco Use Types Packs/Day Years Used Date Smoking Tobacco: Never Alcohol Use Standard Drinks/Week Comments No 0 (1 standard drink = 0.6 oz pur e alcohol) Sex and Gender Information Value Date Recorded Sex Assigned at Not on file 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
[2024-10-09] MEDS: ACETAMINOPHEN 325 MG TABLET 650 MG PO (20:22)
[2024-10-09 21:00] LABS: Anion Gap 13 mmol/L (4-12); Blood Urea Nitrogen 14 mg/dL (9-20); Calcium 7.8 mg/dL (8.4-10.2); Carbon Dioxide 18 mmol/L (22-30); Chloride 91 mmol/L (98-107); Estimated CRCL calculation 99 ml/min; Estimated Glomerular Filt Rate > 60; Glucose 224 mg/dL (65-110); Potassium 3.9 mmol/L (3.4-5.0); Sodium 122 mmol/L (137-145)
[2024-10-09] MEDS: LACTATED RINGERS 1,000 ML 999 ML IV CONT (21:04)
[2024-10-09] MEDS: METOPROLOL TARTRATE 25 MG TABLET PO (21:13)
[2024-10-09 23:14] LABS: Glucose Point of Care 428 mg/dl (65-105)
[2024-10-09 23:14] LABS: Glucose Point of Care 174 mg/dl (65-105)
[2024-10-09 23:14] LABS: Glucose Point of Care 235 mg/dl (65-105)
[2024-10-10] VITALS (17 sets, daily range): BP systolic 93–133; BP diastolic 62–86; PULSE 93–136; RESP 13–32; TEMP 36.4–39.5; O2SAT 92–98; BMI 27.9
[2024-10-10 00:07] LABS: Glucose Point of Care 137 mg/dl (65-105)
[2024-10-10] MEDS: ACETAMINOPHEN 325 MG TABLET 650 MG PO ×2 (00:22→20:40)
[2024-10-10 00:24] LABS: Anion Gap 10 mmol/L (4-12); Blood Urea Nitrogen 12 mg/dL (9-20); Calcium 7.6 mg/dL (8.4-10.2); Carbon Dioxide 21 mmol/L (22-30); Chloride 92 mmol/L (98-107); Estimated CRCL calculation 102 ml/min; Estimated Glomerular Filt Rate > 60; Glucose 113 mg/dL (65-110); Potassium 3.5 mmol/L (3.4-5.0); Sodium 123 mmol/L (137-145)
[2024-10-10] MEDS: CALCIUM GLUC 2,000 MG/NS 100ML 2,000 MG/100 ML BAG 100 MG IVPB (00:54)
[2024-10-10] MEDS: IBUPROFEN IV 400 MG in SODIUM CHLORIDE 0.9% IV 100 ML 208 MG IVPB (00:55)
[2024-10-10] MEDS: INSULIN GLARGINE (*BKC) 100 UNITS/ML 22 UNITS SUB-Q ×2 (01:01→20:39)
[2024-10-10 02:08] LABS: Glucose Point of Care 170 mg/dl (65-105)
[2024-10-10] MEDS: VANCOMYCIN 1,500 MG/NS 500 ML 1,500 MG/500 ML BAG 250 MG IVPB ×2 (02:50→14:43)
[2024-10-10 04:08] LABS: Hematocrit 37.5 % (42.0-52.0); Hemoglobin 12.8 g/dL (14.0-18.0); Mean Corpuscular HGB Conc 34.1 g/dl (32-36); Mean Corpuscular Hemoglobin 27.4 pg (26-34); Mean Corpuscular Volume 80.3 fl (80-100); Mean Platelet Volume 9.3 fl (7.4-10.4); Platelet Count Result 232 k/mm3 (150-375); Red Blood Count 4.67 M/mm3 (4.6-6.20); Red Cell Distribution Width 12.8 % (11.5-14.5)
[2024-10-10 04:20] LABS: Anion Gap 10 mmol/L (4-12); Blood Urea Nitrogen 14 mg/dL (9-20); Calcium 8.3 mg/dL (8.4-10.2); Carbon Dioxide 21 mmol/L (22-30); Chloride 93 mmol/L (98-107); Estimated CRCL calculation 87 ml/min; Estimated Glomerular Filt Rate > 60; Glucose 210 mg/dL (65-110); Potassium 3.4 mmol/L (3.4-5.0); Sodium 124 mmol/L (137-145)
[2024-10-10 07:40] LABS: Glucose Point of Care 277 mg/dl (65-105)
[2024-10-10] MEDS: INSULIN ASPART (*BKC) 100 UNITS/ML SUB-Q ×7 (07:42→20:39)
[2024-10-10 08:09] LABS: Anion Gap 11 mmol/L (4-12); Blood Urea Nitrogen 16 mg/dL (9-20); Calcium 8.2 mg/dL (8.4-10.2); Carbon Dioxide 21 mmol/L (22-30); Chloride 92 mmol/L (98-107); Estimated CRCL calculation 105 ml/min; Estimated Glomerular Filt Rate > 60; Glucose 264 mg/dL (65-110); Potassium 3.7 mmol/L (3.4-5.0); Sodium 124 mmol/L (137-145)
[2024-10-10] MEDS: METOPROLOL TARTRATE 25 MG TABLET PO ×2 (08:47→18:56)
[2024-10-10] MEDS: ATORVASTATIN 40 MG TABLET BY MOUTH (08:47)
[2024-10-10] MEDS: ENOXAPARIN 40 MG/0.4 ML SYRINGE SUB-Q (08:47)
[2024-10-10] MEDS: ASPIRIN 81 MG ENTERIC TABLET PO (08:47)
--- NOTE | 2024-10-10 09:12 | WPDCNINT ---
Assessment and Plan Assessment and plan (1) Essential (primary) hypertension: Code(s): I10 - Essential (primary) hypertension Status: Acute Assessment and Plan: blood pressure in controlled range. Continue metoprolol. Resume ramipril depending on response (2) Coronary artery disease: Code(s): I25.10 - Atherosclerotic heart disease of [place] coronary artery without angina pectoris Status: Acute Assessment and Plan: continue aspirin statin beta-oriana (3) DKA (diabetic ketoacidosis): Code(s): E11.10 - Type 2 diabetes mellitus with ketoacidosis without coma Status: Acute Assessment and Plan: patient presented with DKA with elevated beta hydroxybutyrate, anion gap and blood glucose. Pt was given IVF bolus and started on infusion Insulin infusion was started and Q1H glucose monitoring is being done Serial labs were ordered anion gap has now closed and patient is clinically improved. Patient has been transition to subcutaneous insulin. He is on diabetic diet. Dietitian and software educator consulted I will add with meal insulin at 4 units subQ q.a.c. along with sliding scale and Lantus that he is on (4) Sepsis: Code(s): A41.9 - Sepsis, unspecified organism Status: Acute Assessment and Plan: sepsis secondary to scalp abscess her which could be an infected hematoma head CT showed Visualized nasopharynx is normal. Scalp hematoma in the right parieto-occipital area. Otherwise, Superficial soft tissues are normal. a was drained in ER but I will consult surgery to see if additional drainage is needed as patient still have fluid under skin on exam blood and fluid cultures have been sent and are pending continue vancomycin and Rocephin blood glucose control as above (5) Abscess: Code(s): L02.91 - Cutaneous abscess, unspecified Status: Acute Assessment and Plan: see above (6) Hyponatremia: Code(s): E87.1 - Hypo-osmolality and hyponatremia Status: Acute Assessment and Plan: despite correction patient has mild hyponatremia he did came in with dehydration and is getting IV fluids. Monitor sodium levels Plan DVT prophylaxis - Lovenox Nutrition - consistent carbohydrate diet Code Status - Full Code transfer out of ICU today S[facility] Leveler Consult Note Consult date: 10/10/24 Reason for consult: DKA, scalp abscess HPI: Guzman Gandara is a 49 year old male with past medical history of coronary disease status post CABG, diabetes, hyperlipidemia, hypertension presented yesterday to ER with chief complaint of swelling in his cough. Patient states the week ago he bumped his head in to a quarter for task and since then he has been feeling as swelling in his scalp with his hand. He states the swelling has persisted and gotten worse over last 1 week hence he presented to the ER. In the ER patient complained of fever chills nausea vomiting and decreased p.o. intake but to me this morning he denied all of these problems and complaints. He states he did not had any fever nausea vomiting. He does not check his blood glucose regularly. He states his diabetes has been well controlled in the past. he denies chest pain shortness a breath cough dysuria hematuria hematochezia melena abdominal pain diarrhea constipation. No dizziness lightheadedness change in vision or loss of consciousness. All other systems were reviewed and were negative. Workup in the ER showed leukocytosis at 15.8, hyponatremia of 119, chloride of 79, carbon dioxide 15 anion gap of 25, glucose of 543, lactic acid 3.0, magnesium 2.4, C-reactive protein 32.1, beta hydroxybutyrate of 4.05. Urine shows 3+ glucose 3+ ketones negative leukocyte esterase negative nitrate. Head CT and blood cultures pending. EKG shows sinus tachycardia with QTC of 557. Patient had T-max of 102.4?, heart rate 141, respirations 28 and hypertensive 155/98. patient was started on insulin drip vancomycin, Rocephin, and I&D of abscess was performed. this morning he states he feels much better and denies any new complaints. . Review of Systems Review of Systems: All systems reviewed & are unremarkable except as noted in HPI and below ( HPI) [facility] Past Medical History Medical History (Updated 10/10/24 @ 09:34 by Manohar Hdz MD) Essential (primary) hypertension Coronary artery disease Mixed hyperlipidemia Type 2 diabetes mellitus with hyperglycemia Family History Family History Grandparent Family history of type 2 diabetes mellitus Other Cerebrovascular accident Family history of cardiovascular disease Family history of lung cancer Hypertension Social History Social History Smoking status: Never smoker Second hand tobacco smoke exposure: No Alcohol intake: former Substance use type: does not use Do You Feel Safe in your Home?: Yes Lack of Transportation: No Lack of Food: Never True Current Housing: I Have Housing Concerned About Future Housing: No Difficulty Paying Gas/Electric Bills: No Difficulty Paying for Meds: No Currently Unemployed: No Education: Associate Degree Difficulty w/ Childcare or Family Care: No Spiritual care concerns: No Meds Home Medications and Allergies Home Medications ?Medication ?Instructions ?Recorded ?Confirmed ?Type aspirin 81 mg tablet,delayed 81 mg PO DAILY 11/14/19 10/09/24 History release (Adult Low Dose Aspirin) metoprolol tartrate 25 mg tablet 25 mg PO BID #60 tabs 06/05/21 10/09/24 Rx dapagliflozin propaned 5 1 tablet PO BID diabetes #60 ea 07/01/21 10/09/24 Rx mg-metformin ER 1,000 mg tablet, ext rel 24hr (Xigduo XR) atorvastatin 40 mg tablet See Rx Instructions .Route 08/26/21 10/09/24 Rx .COMPLEX #90 tabs ramipril 5 mg capsule See Rx Instructions .Route 08/26/21 10/09/24 Rx .COMPLEX #90 caps Allergies Allergy/AdvReac Type Severity Reaction Status Date / Time No Known Allergies Allergy Verified 10/09/24 12:56 Vital Signs Vital Signs - 24 hr 10/09/24 13:16 10/09/24 13:28 10/09/24 14:36 Temperature 39.1 C H 37.7 C H Pulse Rate 141 H 140 H 129 H Respiratory Rate 28 H 26 H Blood Pressure 149/94 H 122/80 Pulse Oximetry 100 98 Oxygen Delivery 10/09/24 15:25 10/09/24 16:00 10/09/24 16:00 Temperature 37.6 C H 37.9 C H Pulse Rate 126 H 115 H Respiratory Rate 27 H 30 H Blood Pressure 117/70 128/80 Pulse Oximetry 98 97 Oxygen Delivery Room Air 10/09/24 16:00 10/09/24 18:00 10/09/24 18:00 Temperature 38.1 C H Pulse Rate 122 H 126 H 124 H Respiratory Rate 16 Blood Pressure 147/88 H Pulse Oximetry 99 Oxygen Delivery 10/09/24 20:00 10/09/24 20:00 10/09/24 20:22 Temperature 39.5 C H 39.5 C H Pulse Rate 141 H 141 H Respiratory Rate 33 H Blood Pressure 139/83 Pulse Oximetry 97 Oxygen Delivery 10/09/24 21:10 10/09/24 21:13 10/09/24 22:00 Temperature 38.2 C H Pulse Rate 140 H 115 H Respiratory Rate Blood Pressure Pulse Oximetry Oxygen Delivery 10/09/24 22:00 10/10/24 00:00 10/10/24 00:00 Temperature 39.5 C H Pulse Rate 112 H 134 H 132 H Respiratory Rate 28 H 32 H Blood Pressure 110/71 115/71 Pulse Oximetry 96 93 Oxygen Delivery 10/10/24 00:22 10/10/24 00:55 10/10/24 02:00 Temperature 39.5 C H 39.5 C H 36.9 C Pulse Rate Respiratory Rate Blood Pressure Pulse Oximetry Oxygen Delivery 10/10/24 02:00 10/10/24 02:00 10/10/24 02:00 Temperature 36.9 C Pulse Rate 114 H 114 H Respiratory Rate 13 Blood Pressure 96/62 L Pulse Oximetry 92 Oxygen Delivery 10/10/24 04:00 10/10/24 04:00 10/10/24 06:00 Temperature 36.9 C Pulse Rate 106 H 107 H 93 Respiratory Rate 25 H Blood Pressure 123/86 Pulse Oximetry 97 Oxygen Delivery 10/10/24 06:00 10/10/24 08:00 10/10/24 08:47 Temperature 36.4 C L 36.6 C Pulse Rate 93 101 H 106 H Respiratory Rate 28 H 18 Blood Pressure 93/77 L 110/77 Pulse Oximetry 94 97 Oxygen Delivery Exam Narrative: General: Pt is alert awake and in NAD Lungs/Chest: Trachea central Clear BS B/L, No crackles or wheezing. Cardiac: RRR. Normal S1 S2. No murmurs Circulation: Pedal pulses are intact and symmetrical. Abdomen: Normal bowel sounds.. Soft. NT. ND. Extremities: No clubbing, cyanosis or edema. Warm : Nicholson in place Neurologic: Follows commands. Moves all 4 extremities PERRL Skin: small 2x areas of swelling and fluctuance on the scar up on the posterior aspect of the head Results Labs 10/10/24 04:02 10/10/24 07:54 Labs: Impressions Head CT 10/09/24 14:57 IMPRESSION: No acute intracranial findings. Short CBC 10/09/24 10/10/24 Range/Units 13:39 04:02 WBC 15.8 H 9.0 (4.5-10.0) K/mm3 Hgb 14.1 12.8 L (14.0-18.0) g/dL Hct 40.9 L 37.5 L (42.0-52.0) % Plt Count 321 232 (150-375) k/mm3 BMP 10/09/24 10/09/24 10/09/24 13:38 16:00 20:26 Sodium 119 L* 123 L 122 L Potassium 4.0 3.0 L 3.9 Chloride 79 L 90 L 91 L Carbon Dioxide 15 L 17 L 18 L BUN 16 D 16 14 Creatinine 0.87 0.70 0.69 L Glucose 543 H* 239 H 224 H Calcium 8.6 8.0 L 7.8 L 10/10/24 10/10/24 10/10/24 00:11 04:02 07:54 Sodium 123 L 124 L 124 L Potassium 3.5 3.4 3.7 Chloride 92 L 93 L 92 L Carbon Dioxide 21 L 21 L 21 L BUN 12 14 16 Creatinine 0.67 L 0.80 0.65 L Glucose 113 H 210 H 264 H Calcium 7.6 L 8.3 L 8.2 L Liver Function 10/09/24 Range/Units 13:38 Total Bilirubin 1.4 H (0.2-1.3) mg/dL AST 41 (17-59) U/L ALT 35 (6-50) U/L Alkaline Phosphatase 193 H (38-126) U/L Albumin 4.4 (3.5-5.1) g/dL Urine 10/09/24 Range/Units 14:03 Urine Color Yellow (Yellow) Urine Appearance Cloudy H (Clear) Urine pH 5.0 (5.0-9.0) Ur Specific [place] 1.031 (1.001-1.035) Urine Protein 1+ H (Negative) mg/dL Urine Glucose (UA) 3+ H (Negative) mg/dL
[2024-10-10] MEDS: POTASSIUM CHLORIDE 20 MEQ ER TABLET 40 MEQ PO (09:15)
--- NOTE | 2024-10-10 09:57 | P.CONGS_ITS ---
Assessment and Plan Assessment and plan (1) Scalp abscess: Code(s): L02.811 - Cutaneous abscess of head [any part, except face] Status: Acute Assessment and Plan: The patient presents in DKA and was admitted in the ICU. He has what appears to be 2 separate scalp abscesses on the right posterior scalp. He had an injury to his head after bumping it on a desk about 1.[address] showed a hematoma in the right posterior scalp. This is likely an infected hematoma. He had an I&D of the superior abscess in the ER, which still has some purulent drainage and old clot coming from this area. The incision is small and I would recommend extending this incision for adequate drainage and where we could be pack this area daily. Would also recommend incision and drainage of the inferior scalp abscess, which can be done at the bedside with local anesthetic. He received Lovenox this morning, which we will put on hold and plan to proceed with I&D tomorrow at the bedside. Continue IV ceftriaxone and vancomycin. Cultures from the ER are pending. (2) Sepsis: Code(s): A41.9 - Sepsis, unspecified organism Status: Acute Assessment and Plan: Likely related to scalp abscesses. Fever overnight. WBC normalized today. See plan above. Continue IV antibiotics. (3) DKA (diabetic ketoacidosis): Code(s): E11.10 - Type 2 diabetes mellitus with ketoacidosis without coma Status: Acute Assessment and Plan: Resolving. He is off the insulin infusion and being transferred out of ICU. Continue medical management. (4) Type 2 diabetes mellitus with hyperglycemia: Code(s): E11.65 - Type 2 diabetes mellitus with hyperglycemia Status: Acute (5) Coronary artery disease: Code(s): I25.10 - Atherosclerotic heart disease of [place] coronary artery without angina pectoris Status: Acute (6) Hyponatremia: Code(s): E87.1 - Hypo-osmolality and hyponatremia Status: Acute (7) Essential (primary) hypertension: Code(s): I10 - Essential (primary) hypertension Status: Acute Plan I have discussed the patient's case and plan of care with Dr. Martell. History of Present Illness Consult details Consult date: 10/10/24 Reason for consult: other (Scalp abscess) Requesting physician: Manohar Hdz MD Narrative: This is a 49-year-old man with PMH type 2 diabetes mellitus, CAD s/p CABG, hypertension, and hyperlipidemia, who we have been asked to see in surgical consultation for scalp abscess. He hit the back of his head underneath a desk about 1.5 weeks ago. He immediately noticed swelling in this area after bumping his head. Over the next few days, he felt like the lump had grown. Continue to monitor it but did not have much pain. The past few days, he developed progressive fatigue. He laid around his house and slept. In his chart, it mentions fever and chills, but he denies this to me when I asked him on my exam. [place] [address], sodium 119, chloride 79, carbon dioxide 15, anion gap of 25, glucose 543, lactic acid 3.0, magnesium 2.4, CRP 32.1. CT of the head demonstrated a scalp hematoma in the right par[place]o- occipital area, but no other acute intracranial findings. The ED physician performed a bedside incision and drainage of the scalp. Wound cultures were obtained. He was admitted to the ICU and treated for DKA. He has been off his insulin drip since early this morning and resumed on a diabetic diet. He still has an area of fluctuance on his posterior scalp and we were subsequently consulted to evaluate for scalp abscess. The patient had a temperature of a 103.1? F overnight that was treated with Tylenol. He is afebrile this morning. White blood cell count is down to 9000. Review of Systems 2 Review of Systems: All systems reviewed & are unremarkable except as noted in HPI and below PMFSH Past Medical History Medical History (Updated 10/10/24 @ 11:22 by EMILY Topete) Essential (primary) hypertension Coronary artery disease Mixed hyperlipidemia Type 2 diabetes mellitus with hyperglycemia Family History Family History Grandparent Family history of type 2 diabetes mellitus Other Cerebrovascular accident Family history of cardiovascular disease Family history of lung cancer Hypertension Social History Social History Smoking status: Never smoker Second hand tobacco smoke exposure: No Alcohol intake: former Substance use type: does not use Do You Feel Safe in your Home?: Yes Lack of Transportation: No Lack of Food: Never True Current Housing: I Have Housing Concerned About Future Housing: No Difficulty Paying Gas/Electric Bills: No Difficulty Paying for Meds: No Currently Unemployed: No Education: Associate Degree Difficulty w/ Childcare or Family Care: No Spiritual care concerns: No Meds Home Medications and Allergies Home Medications ?Medication ?Instructions ?Recorded ?Confirmed ?Type aspirin 81 mg tablet,delayed 81 mg PO DAILY 11/14/19 10/09/24 History release (Adult Low Dose Aspirin) metoprolol tartrate 25 mg tablet 25 mg PO BID #60 tabs 06/05/21 10/09/24 Rx dapagliflozin propaned 5 1 tablet PO BID diabetes #60 ea 07/01/21 10/09/24 Rx mg-metformin ER 1,000 mg tablet, ext rel 24hr (Xigduo XR) atorvastatin 40 mg tablet See Rx Instructions .Route 08/26/21 10/09/24 Rx .COMPLEX #90 tabs ramipril 5 mg capsule See Rx Instructions .Route 08/26/21 10/09/24 Rx .COMPLEX #90 caps Allergies Allergy/AdvReac Type Severity Reaction Status Date / Time No Known Allergies Allergy Verified 10/09/24 12:56 Vital Signs Vital Signs - 24 hr 10/09/24 13:16 10/09/24 13:28 10/09/24 14:36 Temperature 102.4 F H 100 F H Pulse Rate 141 H 140 H 129 H Respiratory Rate 28 H 26 H Blood Pressure 149/94 H 122/80 Pulse Oximetry 100 98 Oxygen Delivery 10/09/24 15:25 10/09/24 16:00 10/09/24 16:00 Temperature 99.7 F H 100.2 F H Pulse Rate 126 H 115 H Respiratory Rate 27 H 30 H Blood Pressure 117/70 128/80 Pulse Oximetry 98 97 Oxygen Delivery Room Air 10/09/24 16:00 10/09/24 18:00 10/09/24 18:00 Temperature 100.6 F H Pulse Rate 122 H 126 H 124 H Respiratory Rate 16 Blood Pressure 147/88 H Pulse Oximetry 99 Oxygen Delivery 10/09/24 20:00 10/09/24 20:00 10/09/24 20:22 Temperature 103.1 F H 103.1 F H Pulse Rate 141 H 141 H Respiratory Rate 33 H Blood Pressure 139/83 Pulse Oximetry 97 Oxygen Delivery 10/09/24 21:10 10/09/24 21:13 10/09/24 22:00 Temperature 100.7 F H Pulse Rate 140 H 115 H Respiratory Rate Blood Pressure Pulse Oximetry Oxygen Delivery 10/09/24 22:00 10/10/24 00:00 10/10/24 00:00 Temperature 103.1 F H Pulse Rate 112 H 134 H 132 H Respiratory Rate 28 H 32 H Blood Pressure 110/71 115/71 Pulse Oximetry 96 93 Oxygen Delivery 10/10/24 00:22 10/10/24 00:55 10/10/24 02:00 Temperature 103.1 F H 103.1 F H 98.5 F Pulse Rate Respiratory Rate Blood Pressure Pulse Oximetry Oxygen Delivery 10/10/24 02:00 10/10/24 02:00 10/10/24 02:00 Temperature 98.5 F Pulse Rate 114 H 114 H Respiratory Rate 13 Blood Pressure 96/62 L Pulse Oximetry 92 Oxygen Delivery 10/10/24 04:00 10/10/24 04:00 10/10/24 06:00 Temperature 98.5 F Pulse Rate 106 H 107 H 93 Respiratory Rate 25 H Blood Pressure 123/86 Pulse Oximetry 97 Oxygen Delivery 10/10/24 06:00 10/10/24 08:00 10/10/24 08:00 Temperature 97.5 F L 97.8 F Pulse Rate 93 101 H Respiratory Rate 28 H 18 Blood Pressure 93/77 L 110/77 Pulse Oximetry 94 97 Oxygen Delivery Room Air 10/10/24 08:00 10/10/24 08:47 Temperature Pulse Rate 104 H 106 H Respiratory Rate Blood Pressure Pulse Oximetry Oxygen Delivery Exam 2 Const: General: comfortable and no acute distress Nutritional Appearance: a verage body habitus Orientation/consciousness: patient oriented x3 HENMT: Head: atraumatic Head images: 1. 3 x 2.5 cm area of erythema and swelling with fluctuance, central opening to the abscess where previous incision was made that is less than 0.5 cm in length with still moderate amount of purulent drainage coming from this wound 2. 3 x 4 cm area of erythema and indurat ion with fluctuance, there is two tiny areas of purulent drainage that is expressed when pressing in this area Ears: hearing grossly normal bilaterally Mouth: Yes moist mucous membranes Eyes: General: appearance normal, both eyes and all related structures P upils: Equal, round and reactive pupils present Neck: Neck: normal visual inspection and full ROM Resp: Effort & Inspection: no respiratory distress Auscultation: clear to auscultation bilaterally Cardio: Rate: tachycardic (low 100's) Rhythm: regular rhythm Peripheral pulses: Peripheral pulses 2+ throughout GI: Inspection: non-distended GI Palp: Yes Soft to palpation, No Tenderness to palpation present (GI), No Guarding due to palpation present (GI) and No Rebound tenderness present Auscultation: normal bowel sounds Skin: General skin exam: normal color Neuro: General: moves all extremities and no focal motor deficits Speech: n ormal speech Motor exam (neuro): 5/5 motor strength present throughout Extrem: General: normal to inspection and no edema Psych: Mental Status: mental status grossly normal Attitude: cooperative Insight: Good insight present (Psych) Judgement: Good judgement present (Psych) Results Labs 10/10/24 04:02 10/10/24 07:54 Labs: Abnormal lab results 10/09/24 10/09/24 10/09/24 Range/Units 13:38 13:39 14:03 WBC 15.8 H (4.5-10.0) K/mm3 Hgb (14.0-18.0) g/dL Hct 40.9 L (42.0-52.0) % MCV 78.5 L (80-100) fl Immature Gran % (Auto) 1.3 H (0-0.5) % Neut % (Auto) 84.9 H (45.5-73.1) % Lymph % (Auto) 5.7 L (18.3-44.2) % [place] # (Auto) 1.1 H (0.1-0.6) K/mm3 Abs Immat Gran (auto) 0.20 H (0.00-0.031) K/mm3 Absolute Neuts (auto) 13.5 H (1.3-6.7) K/mm3 Sodium 119 L* (137-145) mmol/L Potassium (3.4-5.0) mmol/L Chloride 79 L (98-107) mmol/L Carbon Dioxide 15 L (22-30) mmol/L Anion Gap 25 H (4-12) mmol/L Creatinine (0.7-1.3) mg/dL Glucose 543 H* (65-110) mg/dL POC Capillary Glucose (65-105) mg/dl Hemoglobin A1c 12.0 H (<5.7) % Lactic Acid 3.0 H (0.7-2.0) mmol/L Calcium (8.4-10.2) mg/dL Magnesium 2.4 H (1.6-2.3) mg/dL Total Bilirubin 1.4 H (0.2-1.3) mg/dL Alkaline Phosphatase 193 H (38-126) U/L C-Reactive Protein 32.1 H (<1.0) mg/dL Beta-Hydroxybutyrate/Acetoacetate 4.05 H (0.02-0.27) mmol/L Urine Appearance Cloudy H (Clear) Urine Protein 1+ H (Negative) mg/dL Urine Glucose (UA) 3+ H (Negative) mg/dL Urine Ketones 3+ H (Negative) mg/dL Ur Blood (Man) 2+ H (Negative) 10/09/24 10/09/24 10/09/24 Range/Units 14:40 15:08 16:00 WBC (4.5-10.0) K/mm3 Hgb (14.0-18.0) g/dL Hct (42.0-52.0) % MCV (80-100) fl Immature Gran % (Auto) (0-0.5) % Neut % (Auto) (45.5-73.1) % Lymph % (Auto) (18.3-44.2) % [place] # (Auto) (0.1-0.6) K/mm3 Abs Immat Gran (auto) (0.00-0.031) K/mm3 Absolute Neuts (auto) (1.3-6.7) K/mm3 Sodium 123 L (137-145) mmol/L Potassium 3.0 L (3.4-5.0) mmol/L Chloride 90 L (98-107) mmol/L Carbon Dioxide 17 L (22-30) mmol/L Anion Gap 16 H (4-12) mmol/L Creatinine (0.7-1.3) mg/dL Glucose 239 H (65-110) mg/dL POC Capillary Glucose 431 H 376 H 259 H (65-105) mg/dl Hemoglobin A1c (<5.7) % Lactic Acid 2.6 H (0.7-2.0) mmol/L Calcium 8.0 L (8.4-10.2) mg/dL Magnesium (1.6-2.3) mg/dL Total Bilirubin (0.2-1.3) mg/dL Alkaline Phosphatase (38-126) U/L C-Reactive Protein (<1.0) mg/dL Beta-Hydroxybutyrate/Acetoacetate (0.02-0.27) mmol/L Urine Appearance (Clear) Urine Protein (Negative) mg/dL Urine Glucose (UA) (Negative) mg/dL Urine Ketones (Negative) mg/dL Ur Blood (Man) (Negative) 10/09/24 10/09/24 10/09/24 Range/Units 16:58 17:56 18:54 WBC (4.5-10.0) K/mm3 Hgb (14.0-18.0) g/dL Hct (42.0-52.0) % MCV (80-100) fl Immature Gran % (Auto) (0-0.5) % Neut % (Auto) (45.5-73.1) % Lymph % (Auto) (18.3-44.2) % [place] # (Auto) (0.1-0.6) K/mm3 Abs Immat Gran (auto) (0.00-0.031) K/mm3 Absolute Neuts (auto) (1.3-6.7) K/mm3 Sodium (137-145) mmol/L Potassium (3.4-5.0) mmol/L Chloride (98-107) mmol/L Carbon Dioxide (22-30) mmol/L Anion Gap (4-12) mmol/L Creatinine (0.7-1.3) mg/dL Glucose (65-110) mg/dL POC Capillary Glucose 195 H 143 H 214 H (65-105) mg/dl Hemoglobin A1c (<5.7) % Lactic Acid (0.7-2.0) mmol/L Calcium (8.4-10.2) mg/dL Magnesium (1.6-2.3) mg/dL Total Bilirubin (0.2-1.3) mg/dL Alkaline Phosphatase (38-126) U/L C-Reactive Protein (<1.0) mg/dL Beta-Hydroxybutyrate/Acetoacetate (0.02-0.27) mmol/L Urine Appearance (Clear) Urine Protein (Negative) mg/dL Urine Glucose (UA) (Negative) mg/dL Urine Ketones (Negative) mg/dL Ur Blood (Man) (Negative) 10/09/24 10/09/24 10/09/24 Range/Units 19:57 20:26 21:05 WBC (4.5-10.0) K/mm3 Hgb (14.0-18.0) g/dL Hct (42.0-52.0) % MCV (80-100) fl Immature Gran % (Auto) (0-0.5) % Neut % (Auto) (45.5-73.1) % Lymph % (Auto) (18.3-44.2) % [place] # (Auto) (0.1-0.6) K/mm3 Abs Immat Gran (auto) (0.00-0.031) K/mm3 Absolute Neuts (auto) (1.3-6.7) K/mm3 Sodium 122 L (137-145) mmol/L Potassium (3.4-5.0) mmol/L Chloride 91 L (98-107) mmol/L Carbon Dioxide 18 L (22-30) mmol/L Anion Gap 13 H (4-12) mmol/L Creatinine 0.69 L (0.7-1.3) mg/dL Glucose 224 H (65-110) mg/dL POC Capillary Glucose 339 H 428 H (65-105) mg/dl Hemoglobin A1c (<5.7) % Lactic Acid (0.7-2.0) mmol/L Calcium 7.8 L (8.4-10.2) mg/dL Magnesium (1.6-2.3) mg/dL Total Bilirubin (0.2-1.3) mg/dL Alkaline Phosphatase (38-126) U/L C-Reactive Protein (<1.0) mg/dL Beta-Hydroxybutyrate/Acetoacetate (0.02-0.27) mmol/L Urine Appearance (Clear) Urine Protein (Negative) mg/dL Urine Glucose (UA) (Negative) mg/dL Urine Ketones (Negative) mg/dL Ur Blood (Man) (Negative) 10/09/24 10/09/24 10/10/24 Range/Units 22:06 23:08 00:04 WBC (4.5-10.0) K/mm3 Hgb (14.0-18.0) g/dL Hct (42.0-52.0) % MCV (80-100) fl Immature Gran % (Auto) (0-0.5) % Neut % (Auto) (45.5-73.1) % Lymph % (Auto) (18.3-44.2) % [place] # (Auto) (0.1-0.6) K/mm3 Abs Immat Gran (auto) (0.00-0.031) K/mm3 Absolute Neuts (auto) (1.3-6.7) K/mm3 Sodium (137-145) mmol/L Potassium (3.4-5.0) mmol/L Chloride (98-107) mmol/L Carbon Dioxide (22-30) mmol/L Anion Gap (4-12) mmol/L Creatinine (0.7-1.3) mg/dL Glucose (65-110) mg/dL POC Capillary Glucose 235 H 174 H 137 H (65-105) mg/dl Hemoglobin A1c (<5.7) % Lactic Acid (0.7-2.0) mmol/L Calcium (8.4-10.2) mg/dL Magnesium (1.6-2.3) mg/dL Total Bilirubin (0.2-1.3) mg/dL Alkaline Phosphatase (38-126) U/L C-Reactive Protein (<1.0) mg/dL Beta-Hydroxybutyrate/Acetoacetate (0.02-0.27) mmol/L Urine Appearance (Clear) Urine Protein (Negative) mg/dL Urine Glucose (UA) (Negative) mg/dL Urine Ketones (Negative) mg/dL Ur Blood (Man) (Negative) 10/10/24 10/10/24 10/10/24 Range/Units 00:11 02:03 04:02 WBC (4.5-10.0) K/mm3 Hgb 12.8 L (14.0-18.0) g/dL Hct 37.5 L (42.0-52.0) % MCV (80-100) fl Immature Gran % (Auto) (0-0.5) % Neut % (Auto) (45.5-73.1) % Lymph % (Auto) (18.3-44.2) % [place] # (Auto) (0.1-0.6) K/mm3 Abs Immat Gran (auto) (0.00-0.031) K/mm3 Absolute Neuts (auto) (1.3-6.7) K/mm3 Sodium 123 L 124 L (137-145) mmol/L Potassium (3.4-5.0) mmol/L Chloride 92 L 93 L (98-107) mmol/L Carbon Dioxide 21 L 21 L (22-30) mmol/L Anion Gap (4-12) mmol/L Creatinine 0.67 L (0.7-1.3) mg/dL Glucose 113 H 210 H (65-110) mg/dL POC Capillary Glucose 170 H (65-105) mg/dl Hemoglobin A1c (<5.7) % Lactic Acid (0.7-2.0) mmol/L Calcium 7.6 L 8.3 L (8.4-10.2) mg/dL Magnesium (1.6-2.3) mg/dL Total Bilirubin (0.2-1.3) mg/dL Alkaline Phosphatase (38-126) U/L C-Reactive Protein (<1.0) mg/dL Beta-Hydroxybutyrate/Acetoacetate (0.02-0.27) mmol/L Urine Appearance (Clear) Urine Protein (Negative) mg/dL Urine Glucose (UA) (Negative) mg/dL Urine Ketones (Negative) mg/dL Ur Blood (Man) (Negative) 10/10/24 10/10/24 Range/Units 07:36 07:54 WBC (4.5-10.0) K/mm3 Hgb (14.0-18.0) g/dL Hct (42.0-52.0) % MCV (80-100) fl Immature Gran % (Auto) (0-0.5) % Neut % (Auto) (45.5-73.1) % Lymph % (Auto) (18.3-44.2) % [place] # (Auto) (0.1-0.6) K/mm3 Abs Immat Gran (auto) (0.00-0.031) K/mm3 Absolute Neuts (auto) (1.3-6.7) K/mm3 Sodium 124 L (137-145) mmol/L Potassium (3.4-5.0) mmol/L Chloride 92 L (98-107) mmol/L Carbon Dioxide 21 L (22-30) mmol/L Anion Gap (4-12) mmol/L Creatinine 0.65 L (0.7-1.3) mg/dL Glucose 264 H (65-110) mg/dL POC Capillary Glucose 277 H (65-105) mg/dl Hemoglobin A1c (<5.7) % Lactic Acid (0.7-2.0) mmol/L Calcium 8.2 L (8.4-10.2) mg/dL Magnesium (1.6-2.3) mg/dL Total Bilirubin (0.2-1.3) mg/dL Alkaline Phosphatase (38-126) U/L C-Reactive Protein (<1.0) mg/dL Beta-Hydroxybutyrate/Acetoacetate (0.02-0.27) mmol/L Urine Appearance (Clear) Urine Protein (Negative) mg/dL Urine Glucose (UA) (Negative) mg/dL Urine Ketones (Negative) mg/dL Ur Blood (Man) (Negative) Diabetes panel 10/09/24 10/09/24 10/09/24 Range/Units 13:38 16:00 20:26 Sodium 119 L* 123 L 122 L (137-145) mmol/L Potassium 4.0 3.0 L 3.9 (3.4-5.0) mmol/L Chloride 79 L 90 L 91 L (98-107) mmol/L Carbon Dioxide 15 L 17 L 18 L (22-30) mmol/L BUN 16 D 16 14 (9-20) mg/dL Creatinine 0.87 0.70 0.69 L (0.7-1.3) mg/dL Glucose 543 H* 239 H 224 H (65-110) mg/dL Hemoglobin A1c 12.0 H (<5.7) % Calcium 8.6 8.0 L 7.8 L (8.4-10.2) mg/dL AST 41 (17-59) U/L ALT 35 (6-50) U/L Alkaline Phosphatase 193 H (38-126) U/L Total Protein 8.0 (6.3-8.2) g/dL Albumin 4.4 (3.5-5.1) g/dL 10/10/24 10/10/24 10/10/24 Range/Units 00:11 04:02 07:54 Sodium 123 L 124 L 124 L (137-145) mmol/L Potassium 3.5 3.4 3.7 (3.4-5.0) mmol/L Chloride 92 L 93 L 92 L (98-107) mmol/L Carbon Dioxide 21 L 21 L 21 L (22-30) mmol/L BUN 12 14 16 (9-20) mg/dL Creatinine 0.67 L 0.80 0.65 L (0.7-1.3) mg/dL Glucose 113 H 210 H 264 H (65-110) mg/dL Hemoglobin A1c (<5.7) % Calcium 7.6 L 8.3 L 8.2 L (8.4-10.2) mg/dL AST (17-59) U/L ALT (6-50) U/L Alkaline Phosphatase (38-126) U/L Total Protein (6.3-8.2) g/dL Albumin (3.5-5.1) g/dL Calcium panel 10/09/24 10/09/24 10/09/24 Range/Units 13:38 16:00 20:26 Calcium 8.6 8.0 L 7.8 L (8.4-10.2) mg/dL Phosphorus 3.0 (2.5-4.5) mg/dL Albumin 4.4 (3.5-5.1) g/dL 10/10/24 10/10/24 10/10/24 Range/Units 00:11 04:02 07:54 Calcium 7.6 L 8.3 L 8.2 L (8.4-10.2) mg/dL Phosphorus (2.5-4.5) mg/dL Albumin (3.5-5.1) g/dL Pituitary panel 10/09/24 10/09/24 10/09/24 Range/Units 13:38 16:00 20:26 Sodium 119 L* 123 L 122 L (137-145) mmol/L Potassium 4.0 3.0 L 3.9 (3.4-5.0) mmol/L Chloride 79 L 90 L 91 L (98-107) mmol/L Carbon Dioxide 15 L 17 L 18 L (22-30) mmol/L BUN 16 D 16 14 (9-20) mg/dL Creatinine 0.87 0.70 0.69 L (0.7-1.3) mg/dL Glucose 543 H* 239 H 224 H (65-110) mg/dL Calcium 8.6 8.0 L 7.8 L (8.4-10.2) mg/dL 10/10/24 10/10/24 10/10/24 Range/Units 00:11 04:02 07:54 Sodium 123 L 124 L 124 L (137-145) mmol/L Potassium 3.5 3.4 3.7 (3.4-5.0) mmol/L Chloride 92 L 93 L 92 L (98-107) mmol/L Carbon Dioxide 21 L 21 L 21 L (22-30) mmol/L BUN 12 14 16 (9-20) mg/dL Creatinine 0.67 L 0.80 0.65 L (0.7-1.3) mg/dL Glucose 113 H 210 H 264 H (65-110) mg/dL Calcium 7.6 L 8.3 L 8.2 L (8.4-10.2) mg/dL Adrenal panel 10/09/24 10/09/24 10/09/24 Range/Units 13:38 16:00 20:26 Sodium 119 L* 123 L 122 L (137-145) mmol/L Potassium 4.0 3.0 L 3.9 (3.4-5.0) mmol/L Chloride 79 L 90 L 91 L (98-107) mmol/L Carbon Dioxide 15 L 17 L 18 L (22-30) mmol/L BUN 16 D 16 14 (9-20) mg/dL Creatinine 0.87 0.70 0.69 L (0.7-1.3) mg/dL Glucose 543 H* 239 H 224 H (65-110) mg/dL Calcium 8.6 8.0 L 7.8 L (8.4-10.2) mg/dL Total Bilirubin 1.4 H (0.2-1.3) mg/dL AST 41 (17-59) U/L ALT 35 (6-50) U/L Alkaline Phosphatase 193 H (38-126) U/L Total Protein 8.0 (6.3-8.2) g/dL Albumin 4.4 (3.5-5.1) g/dL 10/10/24 10/10/24 10/10/24 Range/Units 00:11 04:02 07:54 Sodium 123 L 124 L 124 L (137-145) mmol/L Potassium 3.5 3.4 3.7 (3.4-5.0) mmol/L Chloride 92 L 93 L 92 L (98-107) mmol/L Carbon Dioxide 21 L 21 L 21 L (22-30) mmol/L BUN 12 14 16 (9-20) mg/dL Creatinine 0.67 L 0.80 0.65 L (0.7-1.3) mg/dL Glucose 113 H 210 H 264 H (65-110) mg/dL Calcium 7.6 L 8.3 L 8.2 L (8.4-10.2) mg/dL Total Bilirubin (0.2-1.3) mg/dL AST (17-59) U/L ALT (6-50) U/L Alkaline Phosphatase (38-126) U/L Total Protein (6.3-8.2) g/dL Albumin (3.5-5.1) g/dL All other labs normal. Imaging Additional studies: ITS Impressions Head CT 10/09/24 14:57 IMPRESSION: No acute intracranial findings.
--- NOTE | 2024-10-10 11:00 | PC.NURSE ---
Report given to Jeremias SALGADO. PT transported with belongings and I&D kit for tomorrows procedure. PT on room air, IV in place.
[2024-10-10 11:54] LABS: Glucose Point of Care 367 mg/dl (65-105)
[2024-10-10 12:03] LABS: Anion Gap 10 mmol/L (4-12); Blood Urea Nitrogen 17 mg/dL (9-20); Calcium 8.3 mg/dL (8.4-10.2); Carbon Dioxide 22 mmol/L (22-30); Chloride 92 mmol/L (98-107); Estimated CRCL calculation 96 ml/min; Estimated Glomerular Filt Rate > 60; Glucose 277 mg/dL (65-110); Potassium 3.6 mmol/L (3.4-5.0); Sodium 124 mmol/L (137-145)
--- NOTE | 2024-10-10 14:51 | P.PNIM_ITS ---
Progress Note: A&P Assessment and Plan (1) Abscess: Code(s): L02.91 - Cutaneous abscess, unspecified Status: Acute Assessment and Plan: Sepsis secondary to scalp abscess I&D in ED Fluid bolus Rocephin and vancomycin Repeat lactic Blood cultures pending Wound culture pending (2) DKA (diabetic ketoacidosis): Code(s): E11.10 - Type 2 diabetes mellitus with ketoacidosis without coma Status: Acute Assessment and Plan: BMP q.4 NPO Insulin drip per protocol Bolus 3 L fluid for dehydration (3) Acute hyponatremia: Code(s): E87.1 - Hypo-osmolality and hyponatremia Status: Acute Assessment and Plan: Slowly improving with IV hydration BMP Q 4 (4) Type 2 diabetes mellitus with hyperglycemia: Code(s): E11.65 - Type 2 diabetes mellitus with hyperglycemia Status: Acute Assessment and Plan: 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 (5) Coronary artery disease: Code(s): I25.10 - Atherosclerotic heart disease of [place] coronary artery without angina pectoris Status: Acute (6) Essential (primary) hypertension: Code(s): I10 - Essential (primary) hypertension Status: Acute Assessment and Plan: Hold home antihypertensive meds (7) Mixed hyperlipidemia: Code(s): E78.2 - Mixed hyperlipidemia Status: Acute (8) Sepsis: Code(s): A41.9 - Sepsis, unspecified organism Status: Acute (9) Tachycardia: Code(s): R00.0 - Tachycardia, unspecified Status: Acute Assessment and Plan: Continue home metoprolol Plan patient with history of diabetes presented with DKA was initially admitted into ICU was treated with iv insulin and his GAP closed and patient was transferred out of ICU, patient also presented with 2 abscess on occipital area, one of the abscess was I&D in the ER, Patient was seen by surgery service and recommended further I&D which scheduled for tomorrow at bedside as patient received Lovenox today, patient has uncontrolled diabetes he presented with A1c of 12, he was seen by PMD in January 2024 and his A1c was 7, patient stats in winter has not been able to do his regular exercise and diet control, and feels very tired and weak, will PT/OT evaluate the patient. patient will benefit going to rehab. Subjective Date/time seen: 10/10/24 14:51 Interval history: Scalp abscess Narrative: 49-year-old male with past medical history of CABG x3, diabetes type 2, hyperlipidemia, CAD and hypertension presents the hospital with scalp abscess. Patient states that about a week ago he noticed he had abscesses on the back of his head. He states that he did not do anything about it in less than laid around his house and slept. Patient complains of fever and chills, nausea vomiting, and decreased oral intake. His lab work shows leukocytosis at 15.8, hyponatremia of 119, chloride of 79, carbon dioxide 15 anion gap of 25, glucose of 543, lactic acid 3.0, magnesium 2.4, C-reactive protein 32.1, beta hydroxybutyrate of 4.05. Urine shows 3+ glucose 3+ ketones negative leukocyte esterase negative nitrate. Head CT and blood cultures pending. EKG shows sinus tachycardia with QTC of 557. Patient had T-max of 102.4?, heart rate 141, respirations 28 and hypertensive 155/98. In the ED he received 15 units of regular IV insulin followed by insulin drip vancomycin, Rocephin, and I&D of abscess. patient with history of diabetes presented with DKA was initially admitted into ICU was treated with iv insulin and his GAP closed and patient was transferred out of ICU, patient also presented with 2 abscess on occipital area, one of the abscess was I&D in the ER, Patient was seen by surgery service and recommended further I&D which scheduled for tomorrow at bedside as patient received Lovenox today, patient has uncontrolled diabetes he presented with A1c of 12, he was seen by PMD in January 2024 and his A1c was 7, patient stats in winter has not been able to do his regular exercise and diet control, and feels very tired and weak, will PT/OT evaluate the patient. patient will benefit going to rehab. Review of Systems Review of Systems: 12 systems were reviewed and are negativ e except for as per HPI. All systems reviewed & are unremarkable except as noted in HPI and below ( HPI) Exam Narrative: Patient is comfortable, NAD HEENT: eyes are clear and none icteric LUNGS:CTA HEART: RR S1S2 ABD: BS+, Soft and nontender Lower extremities: no edema SKIN: nonjaundiced: occipital 2x abscesses no drainage. Neuro: grossly intact. Objective Data Vital Signs Vital Signs: Vital Signs - 24 hr 10/09/24 15:25 10/09/24 16:00 10/09/24 16:00 Temperature 37.6 C H 37.9 C H Pulse Rate 126 H 115 H Respiratory Rate 27 H 30 H Blood Pressure 117/70 128/80 Pulse Oximetry 98 97 Oxygen Delivery Room Air Fraction of Inspired Oxygen 10/09/24 16:00 10/09/24 18:00 10/09/24 18:00 Temperature 38.1 C H Pulse Rate 122 H 126 H 124 H Respiratory Rate 16 Blood Pressure 147/88 H Pulse Oximetry 99 Oxygen Delivery Fraction of Inspired Oxygen 10/09/24 20:00 10/09/24 20:00 10/09/24 20:22 Temperature 39.5 C H 39.5 C H Pulse Rate 141 H 141 H Respiratory Rate 33 H Blood Pressure 139/83 Pulse Oximetry 97 Oxygen Delivery Fraction of Inspired Oxygen 10/09/24 21:10 10/09/24 21:13 10/09/24 22:00 Temperature 38.2 C H Pulse Rate 140 H 115 H Respiratory Rate Blood Pressure Pulse Oximetry Oxygen Delivery Fraction of Inspired Oxygen 10/09/24 22:00 10/10/24 00:00 10/10/24 00:00 Temperature 39.5 C H Pulse Rate 112 H 134 H 132 H Respiratory Rate 28 H 32 H Blood Pressure 110/71 115/71 Pulse Oximetry 96 93 Oxygen Delivery Fraction of Inspired Oxygen 10/10/24 00:22 10/10/24 00:55 10/10/24 02:00 Temperature 39.5 C H 39.5 C H 36.9 C Pulse Rate Respiratory Rate Blood Pressure Pulse Oximetry Oxygen Delivery Fraction of Inspired Oxygen 10/10/24 02:00 10/10/24 02:00 10/10/24 02:00 Temperature 36.9 C Pulse Rate 114 H 114 H Respiratory Rate 13 Blood Pressure 96/62 L Pulse Oximetry 92 Oxygen Delivery Fraction of Inspired Oxygen 10/10/24 04:00 10/10/24 04:00 10/10/24 06:00 Temperature 36.9 C Pulse Rate 106 H 107 H 93 Respiratory Rate 25 H Blood Pressure 123/86 Pulse Oximetry 97 Oxygen Delivery Fraction of Inspired Oxygen 10/10/24 06:00 10/10/24 08:00 10/10/24 08:00 Temperature 36.4 C L 36.6 C Pulse Rate 93 101 H Respiratory Rate 28 H 18 Blood Pressure 93/77 L 110/77 Pulse Oximetry 94 97 Oxygen Delivery Room Air Fraction of Inspired Oxygen 10/10/24 08:00 10/10/24 08:47 10/10/24 11:28 Temperature Pulse Rate 104 H 106 H Respiratory Rate Blood Pressure Pulse Oximetry 98 Oxygen Delivery Room Air Fraction of Inspired Oxygen 21 10/10/24 11:43 Temperature 37.1 C Pulse Rate 96 Respiratory Rate 16 Blood Pressure 111/85 Pulse Oximetry 95 Oxygen Delivery Fraction of Inspired Oxygen Intake/Output Intake/Output: Intake & Output 10/07/24 10/08/24 10/09/24 10/10/24 23:59 23:59 23:59 23:59 Intake Total 4550.7 2096.9 Output Total 650 1100 Balance 3900.7 996.9 Meds/Results Medications: Active Medications Generic Name Dose Route Start Last Admin Trade Name Freq PRN Reason Stop Dose Admin Acetaminophen 650 mg 10/09/24 20:05 10/10/24 00:22 Acetaminophen 325 Mg Tablet PO 650 mg Q4H PRN Administration Mild Pain (1-3) or Fever Aspirin 81 mg 10/10/24 09:00 10/10/24 08:47 Aspirin 81 Mg Enteric Tablet PO 81 mg DAILY RUBY Administration Atorvastatin Calcium 40 mg 10/10/24 09:00 10/10/24 08:47 Atorvastatin 40 Mg Tablet BY MOUTH 40 mg DAILY RUBY Administration Dextrose 12.5 gm 10/09/24 14:14 Dextrose 50% 25 Gm/50 Ml Syringe IV PUSH PRN PRN Hypoglycemia Protocol Enoxaparin Sodium 40 mg 10/10/24 09:00 10/10/24 08:47 Enoxaparin 40 Mg/0.4 Ml Syringe SUB-Q 40 mg DAILY RUBY Administration Glucagon 1 mg 10/09/24 14:14 Glucagon For Inj 1 Mg Vial IM PRN PRN Hypoglycemia Protocol Glucose 15 gm 10/09/24 14:14 Glucose Oral Gel 15 Gm Of Glucse In 37.5 Gm Tube PO PRN PRN Hypoglycemia Protocol Dextrose 1,000 mls @ 100 mls/hr 10/09/24 14:14 Dextrose 5% 1,000 Ml IVPB PRN PRN Hypoglycemia Protocol Vancomycin HCl 1,500 mg in 500 mls @ 250 mls/hr 10/10/24 03:00 10/10/24 14:43 Vancomycin 1,500 Mg/Ns 500 Ml IVPB 250 mls/hr Q12H RUBY Administration Ceftriaxone Sodium 1 gm in 50 mls @ 100 mls/hr 10/10/24 14:00 10/10/24 13:17 Rocephin 1 Gm/Ns 50 Ml IVPB 100 mls/hr Q24H RUBY Administration Insulin Aspart 3 - 6 units 10/10/24 08:00 10/10/24 11:57 Insulin Aspart (*Bkc) 100 Units/Ml SUB-Q 6 units TIDWM [facility] Administration Protocol Insulin Aspart 1 - 3 units 10/10/24 21:00 Insulin Aspart (*Bkc) 100 Units/Ml SUB-Q HS [facility] Protocol Insulin Aspart 4 units 10/10/24 09:00 10/10/24 11:57 Insulin Aspart (*Bkc) 100 Units/Ml 0.05 units/kg (4 units) 4 units SUB-Q Administration TIDWM [facility] Insulin Glargine 22 units 10/10/24 00:45 10/10/24 01:01 Insulin Glargine (*Bkc) 100 Units/Ml 0.3 units/kg (22 units) 22 units SUB-Q Administration [facility] Metoprolol Tartrate 25 mg 10/09/24 21:05 10/10/24 08:47 Metoprolol Tartrate 25 Mg Tablet PO 25 mg Q12HR [facility] Administration Ramipril 5 mg 10/10/24 09:00 Ramipril 5 Mg Capsule BY MOUTH DAILY [facility] Radiology Results: ITS Impressions Head CT 10/09/24 14:57 IMPRESSION: No acute intracranial findings. Labs Labs: Laboratory Results - last 24 hr 10/09/24 10/09/24 10/09/24 15:08 16:00 16:58 WBC RBC Hgb Hct MCV MCH MCHC RDW Plt Count MPV Sodium 123 L Potassium 3.0 L Chloride 90 L Carbon Dioxide 17 L Anion Gap 16 H BUN 16 Creatinine 0.70 Estim Creat Clear Calc 98 Estimated GFR > 60 Glucose 239 H POC Capillary Glucose 376 H 259 H 195 H Lactic Acid 2.6 H Calcium 8.0 L 10/09/24 10/09/24 10/09/24 17:56 18:54 19:57 WBC RBC Hgb Hct MCV MCH MCHC RDW Plt Count MPV Sodium Potassium Chloride Carbon Dioxide Anion Gap BUN Creatinine Estim Creat Clear Calc Estimated GFR Glucose POC Capillary Glucose 143 H 214 H 339 H Lactic Acid Calcium 10/09/24 10/09/24 10/09/24 20:26 21:05 22:06 WBC RBC Hgb Hct MCV MCH MCHC RDW Plt Count MPV Sodium 122 L Potassium 3.9 Chloride 91 L Carbon Dioxide 18 L Anion Gap 13 H BUN 14 Creatinine 0.69 L Estim Creat Clear Calc 99 Estimated GFR > 60 Glucose 224 H POC Capillary Glucose 428 H 235 H Lactic Acid Calcium 7.8 L 10/09/24 10/10/24 10/10/24 23:08 00:04 00:11 WBC RBC Hgb Hct MCV MCH MCHC RDW Plt Count MPV Sodium 123 L Potassium 3.5 Chloride 92 L Carbon Dioxide 21 L Anion Gap 10 BUN 12 Creatinine 0.67 L Estim Creat Clear Calc 102 Estimated GFR > 60 Glucose 113 H POC Capillary Glucose 174 H 137 H Lactic Acid Calcium 7.6 L 10/10/24 10/10/24 10/10/24 02:03 04:02 07:36 WBC 9.0 RBC 4.67 Hgb 12.8 L Hct 37.5 L MCV 80.3 MCH 27.4 MCHC 34.1 RDW 12.8 Plt Count 232 MPV 9.3 Sodium 124 L Potassium 3.4 Chloride 93 L Carbon Dioxide 21 L Anion Gap 10 BUN 14 Creatinine 0.80 Estim Creat Clear Calc 87 Estimated GFR > 60 Glucose 210 H POC Capillary Glucose 170 H 277 H Lactic Acid Calcium 8.3 L 10/10/24 10/10/24 10/10/24 07:54 11:48 11:52 WBC RBC Hgb Hct MCV MCH MCHC RDW Plt Count MPV Sodium 124 L 124 L Potassium 3.7 3.6 Chloride 92 L 92 L Carbon Dioxide 21 L 22 Anion Gap 11 10 BUN 16 17 Creatinine 0.65 L 0.72 Estim Creat Clear Calc 105 96 Estimated GFR > 60 > 60 Glucose 264 H 277 H POC Capillary Glucose 367 H Lactic Acid Calcium 8.2 L 8.3 L Quality VTE Prophylaxis VTE prophylaxis: mechanical ordered and pharmacologic ordered
[2024-10-10 17:31] LABS: Glucose Point of Care 252 mg/dl (65-105)
--- NOTE | 2024-10-10 18:33 | ECG_ITS ---
Test Date: 2024-10-10 18:44:05 Measurements Intervals [place] Rate: 134 P: 88 OK: 160 QRS: 120 QRSD: 109 T: 55 QT: 300 QTc: 449 Interpretive Statements SINUS TACHYCARDIA POSSIBLE RIGHT VENTRICULAR HYPERTROPHY [SOME/ALL OF: PROMINENT R IN V1, LATE TRANSITION, RAD, MAG, SSS] POSSIBLE ANTERIOR MYOCARDIAL INFARCTION , OF INDETERMINATE AGE [30 ms Q WAVE IN V3/V4, OR R < 0.2 mV IN V4] Compared to ECG 10/09/2024 13:19:55 No significant changes Electronically Signed On 10-11-2024 14:50:26 CDT by Verónica Barreto M.D.
[2024-10-10] MEDS: MELATONIN 3 MG TABLET PO (20:40)
[2024-10-10 21:39] LABS: Glucose Point of Care 229 mg/dl (65-105)
[2024-10-11] VITALS (11 sets, daily range): BP systolic 122–136; BP diastolic 67–82; PULSE 99–142; RESP 18–24; TEMP 36.2–37.4; O2SAT 94–96
[2024-10-11 02:12] LABS: Hematocrit 33.4 % (42.0-52.0); Hemoglobin 11.3 g/dL (14.0-18.0); Mean Corpuscular HGB Conc 33.8 g/dl (32-36); Mean Corpuscular Volume 79.9 fl (80-100); Mean Platelet Volume 9.8 fl (7.4-10.4); Platelet Count Result 255 k/mm3 (150-375); Red Blood Count 4.18 M/mm3 (4.6-6.20); Red Cell Distribution Width 13.1 % (11.5-14.5); White Blood Count 9.4 K/mm3 (4.5-10.0)
[2024-10-11 02:31] LABS: Alanine Aminotransferase 39 U/L (6-50); Albumin Level 2.6 g/dL (3.5-5.1); Alkaline Phosphatase 139 U/L (38-126); Anion Gap 11 mmol/L (4-12); Aspartate Amino Transferase 68 U/L (17-59); Bilirubin,Total 0.6 mg/dL (0.2-1.3); Blood Urea Nitrogen 15 mg/dL (9-20); Calcium 7.5 mg/dL (8.4-10.2); Carbon Dioxide 18 mmol/L (22-30); Chloride 90 mmol/L (98-107); Estimated CRCL calculation 108 ml/min; Estimated Glomerular Filt Rate > 60; Glucose 239 mg/dL (65-110); Potassium 3.4 mmol/L (3.4-5.0); Sodium 119 mmol/L (137-145)
--- NOTE | 2024-10-11 02:43 | P.PNCROSS_ITS ---
Event Note Event Note Event Note: Patient sodium 119. Will repeat the sodium. Medication review indicates no di uretics. Possibly due to dehydration. Will start NSS at 75 mL/hr. Can discontinue if trial of fluids do not improve sodium. Ordered a urine sodium and osmolarity. During the evaluation patient reports a past medical history of CABG. Denies any history of cancer. Medication review indicates no pain meds, and hydrochlorothiazide
[2024-10-11 02:46] LABS: Vancomycin Trough 8.4 ug/mL (10.0-20.0)
[2024-10-11] MEDS: SODIUM CHLORIDE 0.9% IV 1,000 ML 75 ML IV CONT (03:37)
[2024-10-11] MEDS: VANCOMYCIN 1,750 MG/NS 500 ML 1,750 MG/500 ML BAG 125 MG IVPB ×3 (03:37→20:33)
[2024-10-11 05:15] LABS: Sodium 121 mmol/L (137-145)
[2024-10-11 08:47] LABS: Glucose Point of Care 229 mg/dl (65-105)
[2024-10-11] MEDS: METOPROLOL TARTRATE 25 MG TABLET PO ×2 (08:52→20:32)
[2024-10-11] MEDS: ATORVASTATIN 40 MG TABLET BY MOUTH (08:52)
[2024-10-11] MEDS: ASPIRIN 81 MG ENTERIC TABLET PO (08:52)
[2024-10-11] MEDS: INSULIN ASPART (*BKC) 100 UNITS/ML SUB-Q ×7 (08:54→20:35)
--- NOTE | 2024-10-11 10:12 | W.PM.PROC2 ---
Procedure Note - Detailed Date of Procedure 10/11/24 Pre-op Diagnosis Scalp abscesses Post-op Diagnosis Same Procedure Performed Incision and drainage simple scalp abscess x 2 Surgeon EMILY Topete Anesthesia Local (Lidocaine 1% with epi) Indications 49 yo man who presented in A with scalp abscesses. DKA has been treated and he has moved out of the ICU. One of the scalp abscesses was drained in the ED, but continues to have purulent drainage through a small open wound. He is now on the medical floor and plan is to proceed with incision and drainage of scalp abscesses x 2 at the bedside. Description of the procedure, risks, benefits, alternatives, and expected wound care were discussed and he agrees to proceed. Findings Two scalp abscesses on the right posterior scalp with extension of the induration towards the right postauricular area Description of Procedure The patient was placed in the left lateral position. The site of the abscesses for required I&D was identified. Following this, the area was prepped with iodine and draped in usual sterile fashion. Then, local anesthetic was infiltrated directly over the area of swelling and abscess formation on both abscesses. After allowing the local anesthetic to work, the open wound on the superior abscess was lengthened to 1.5 cm with a #15 blade scalpel. Immediate flow of purulent drainage was noted. All purulent drainage was expressed from the abscess and the cavity was probed to break up all loculations. I then irrigated the abscess cavity with normal saline. Following this, I directed my attention to the second inferior abscess. I made a direct linear incision over the fluctuant area of the second abscess, and immediate flow of purulent drainage was noted. I Expressed all purulence drainage from the abscess and broke up any loculations within the abscess cavity. I then irrigated the second abscess cavity with normal saline. Following this, the area was packed with 1/4 inch iodoform Nu Gauze and covered with 4 x 4 gauze. I then used rolled gauze to keep the dressing in place on his head. The patient tolerated the procedure well. Estimated Blood Loss 0 Drains No Packing Yes Pathology None sent Complications None Condition Stable Disposition No change [facility] Billing Surgery - Charge Forward: Surgery Billing
--- NOTE | 2024-10-11 10:40 | PCOTNOTE ---
Per nursingpt. just returned from s/p debridement with HR in 130s at rest. Nursing requests pt. given time to rest having not slepp well last night. Following
[2024-10-11 11:54] LABS: Glucose Point of Care 277 mg/dl (65-105)
[2024-10-11 12:47] LABS: Sodium Urine Random 14 meq/L
--- NOTE | 2024-10-11 14:43 | P.PNIM_ITS ---
Progress Note: A&P Assessment and Plan (1) Abscess: Code(s): L02.91 - Cutaneous abscess, unspecified Status: Acute Assessment and Plan: Sepsis secondary to scalp abscess I&D in ED Fluid bolus Rocephin and vancomycin Repeat lactic Blood cultures pending Wound culture pending (2) DKA (diabetic ketoacidosis): Code(s): E11.10 - Type 2 diabetes mellitus with ketoacidosis without coma Status: Acute Assessment and Plan: BMP q.4 NPO Insulin drip per protocol Bolus 3 L fluid for dehydration (3) Acute hyponatremia: Code(s): E87.1 - Hypo-osmolality and hyponatremia Status: Acute Assessment and Plan: Slowly improving with IV hydration BMP Q 4 (4) Type 2 diabetes mellitus with hyperglycemia: Code(s): E11.65 - Type 2 diabetes mellitus with hyperglycemia Status: Acute Assessment and Plan: 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 Currently on insulin drip (5) Coronary artery disease: Code(s): I25.10 - Atherosclerotic heart disease of [place] coronary artery without angina pectoris Status: Acute (6) Essential (primary) hypertension: Code(s): I10 - Essential (primary) hypertension Status: Acute Assessment and Plan: Hold home antihypertensive meds (7) Mixed hyperlipidemia: Code(s): E78.2 - Mixed hyperlipidemia Status: Acute (8) Sepsis: Code(s): A41.9 - Sepsis, unspecified organism Status: Acute (9) Tachycardia: Code(s): R00.0 - Tachycardia, unspecified Status: Acute Assessment and Plan: Continue home metoprolol Plan patient with history of diabetes presented with DKA was initially admitted into ICU was treated with iv insulin and his GAP closed and patient was transferred out of ICU, patient also presented with 2 abscess on occipital area, one of the abscess was I&D in the ER, Patient was seen by surgery service and recommended further I&D which scheduled for tomorrow at bedside as patient received Lovenox today, patient has uncontrolled diabetes he presented with A1c of 12, he was seen by PMD in January 2024 and his A1c was 7, patient stats in winter has not been able to do his regular exercise and diet control, and feels very tired and weak, patient has hyponatremia most likely dehydration patient is being gently hydrated, will consult creative services designer for further recommendation, also patient had I&D today of his 2nd abscess, will follow up on wound and blood culture, will PT/OT evaluate the patient. patient will benefit going to rehab. Subjective Date/time seen: 10/11/24 14:43 Interval history: Scalp abscess Narrative: 49-year-old male with past medical history of CABG x3, diabetes type 2, hyperlipidemia, CAD and hypertension presents the hospital with scalp abscess. Patient states that about a week ago he noticed he had abscesses on the back of his head. He states that he did not do anything about it in less than laid around his house and slept. Patient complains of fever and chills, nausea vomiting, and decreased oral intake. His lab work shows leukocytosis at 15.8, hyponatremia of 119, chloride of 79, carbon dioxide 15 anion gap of 25, glucose of 543, lactic acid 3.0, magnesium 2.4, C-reactive protein 32.1, beta hydroxybutyrate of 4.05. Urine shows 3+ glucose 3+ ketones negative leukocyte esterase negative nitrate. Head CT and blood cultures pending. EKG shows sinus tachycardia with QTC of 557. Patient had T-max of 102.4?, heart rate 141, respirations 28 and hypertensive 155/98. In the ED he received 15 units of regular IV insulin followed by insulin drip vancomycin, Rocephin, and I&D of abscess. patient with history of diabetes presented with DKA was initially admitted into ICU was treated with iv insulin and his GAP closed and patient was transferred out of ICU, patient also presented with 2 abscess on occipital area, one of the abscess was I&D in the ER, Patient was seen by surgery service and recommended further I&D which scheduled for tomorrow at bedside as patient received Lovenox today, patient has uncontrolled diabetes he presented with A1c of 12, he was seen by PMD in January 2024 and his A1c was 7, patient stats in winter has not been able to do his regular exercise and diet control, and feels very tired and weak, patient has hyponatremia most likely dehydration patient is being gently hydrated, will consult creative services designer for further recommendation, also patient had I&D today of his 2nd abscess, will follow up on wound and blood culture, will PT/OT evaluate the patient. patient will benefit going to rehab. Review of Systems Review of Systems: 12 systems were reviewed and are negativ e except for as per HPI. All systems reviewed & are unremarkable except as noted in HPI and below ( HPI) Exam Narrative: Patient is comfortable, NAD HEENT: eyes are clear and none icteric LUNGS:CTA HEART: RR S1S2 ABD: BS+, Soft and nontender Lower extremities: no edema SKIN: nonjaundiced: occipital 2x abscesses no drainage. Neuro: grossly intact. Objective Data Vital Signs Vital Signs: Vital Signs - 24 hr 10/10/24 16:00 10/10/24 16:00 10/10/24 18:55 Temperature 36.8 C Pulse Rate 117 H 111 H 136 H Respiratory Rate 16 18 Blood Pressure 133/71 129/78 Pulse Oximetry 93 96 Oxygen Delivery Fraction of Inspired Oxygen 10/10/24 18:56 10/10/24 19:59 10/10/24 20:00 Temperature 39.4 C H Pulse Rate 134 H 116 H 116 H Respiratory Rate 18 18 Blood Pressure 120/69 Pulse Oximetry 93 93 Oxygen Delivery Room Air Fraction of Inspired Oxygen 21 10/10/24 20:00 10/10/24 20:40 10/10/24 21:40 Temperature 39.4 C H 37.1 C Pulse Rate 116 H Respiratory Rate Blood Pressure Pulse Oximetry Oxygen Delivery Fraction of Inspired Oxygen 10/11/24 00:00 10/11/24 03:03 10/11/24 04:00 Temperature 36.9 C Pulse Rate 104 H 112 H 108 H Respiratory Rate 18 Blood Pressure 124/77 Pulse Oximetry 94 Oxygen Delivery Fraction of Inspired Oxygen 10/11/24 08:19 10/11/24 08:51 10/11/24 08:52 Temperature 36.2 C L Pulse Rate 142 H 142 H Respiratory Rate 18 Blood Pressure 136/73 Pulse Oximetry 96 Oxygen Delivery Room Air Fraction of Inspired Oxygen 10/11/24 08:58 10/11/24 08:58 10/11/24 11:37 Temperature Pulse Rate 128 H 128 H Respiratory Rate 18 Blood Pressure Pulse Oximetry 96 Oxygen Delivery Room Air Room Air Fraction of Inspired Oxygen 21 10/11/24 12:00 Temperature Pulse Rate 105 H Respiratory Rate Blood Pressure Pulse Oximetry Oxygen Delivery Fraction of Inspired Oxygen Intake/Output Intake/Output: Intake & Output 10/08/24 10/09/24 10/10/24 10/11/24 23:59 23:59 23:59 23:59 Intake Total 4550.7 3936.9 1030 Output Total 650 1500 800 Balance 3900.7 2436.9 230 Meds/Results Medications: Active Medications Generic Name Dose Route Start Last Admin Trade Name Freq PRN Reason Stop Dose Admin Acetaminophen 650 mg 10/09/24 20:05 10/10/24 20:40 Acetaminophen 325 Mg Tablet PO 650 mg Q4H PRN Administration Mild Pain (1-3) or Fever Aspirin 81 mg 10/10/24 09:00 10/11/24 08:52 Aspirin 81 Mg Enteric Tablet PO 81 mg DAILY RUBY Administration Atorvastatin Calcium 40 mg 10/10/24 09:00 10/11/24 08:52 Atorvastatin 40 Mg Tablet BY MOUTH 40 mg DAILY RUBY Administration Dextrose 12.5 gm 10/09/24 14:14 Dextrose 50% 25 Gm/50 Ml Syringe IV PUSH PRN PRN Hypoglycemia Protocol Enoxaparin Sodium 40 mg 10/10/24 09:00 10/10/24 08:47 Enoxaparin 40 Mg/0.4 Ml Syringe SUB-Q 40 mg DAILY RUBY Administration Glucagon 1 mg 10/09/24 14:14 Glucagon For Inj 1 Mg Vial IM PRN PRN Hypoglycemia Protocol Glucose 15 gm 10/09/24 14:14 Glucose Oral Gel 15 Gm Of Glucse In 37.5 Gm Tube PO PRN PRN Hypoglycemia Protocol Dextrose 1,000 mls @ 100 mls/hr 10/09/24 14:14 Dextrose 5% 1,000 Ml IVPB PRN PRN Hypoglycemia Protocol Vancomycin HCl 1,750 mg in 500 mls @ 250 mls/hr 10/11/24 04:00 10/11/24 12:22 Vancomycin 1,750 Mg/Ns 500 Ml IVPB 125 mls/hr Q8H RUBY Administration Sodium Chloride 1,000 mls @ 75 mls/hr 10/11/24 03:25 10/11/24 03:37 Normal Saline Iv IV CONT 75 mls/hr .[id number] RUBY Administration Ceftriaxone Sodium 2 gm in 100 mls @ 200 mls/hr 10/12/24 09:00 Rocephin 2 Gm/Ns 100 Ml IVPB DAILY RUBY Ceftriaxone Sodium 1 gm in 50 mls @ 100 mls/hr 10/11/24 15:00 Rocephin 1 Gm/Ns 50 Ml IVPB 10/11/24 15:29 ONCE ONE Insulin Aspart 3 - 6 units 10/10/24 08:00 10/11/24 12:20 Insulin Aspart (*Bkc) 100 Units/Ml SUB-Q 4 units TIDWM [facility] Administration Protocol Insulin Aspart 1 - 3 units 10/10/24 21:00 10/10/24 20:39 Insulin Aspart (*Bkc) 100 Units/Ml SUB-Q 1 units HS [facility] Administration Protocol Insulin Aspart 4 units 10/10/24 09:00 10/11/24 12:19 Insulin Aspart (*Bkc) 100 Units/Ml 0.05 units/kg (4 units) 4 units SUB-Q Administration TIDWM [facility] Insulin Glargine 22 units 10/10/24 00:45 10/10/24 20:39 Insulin Glargine (*Bkc) 100 Units/Ml 0.3 units/kg (22 units) 22 units SUB-Q Administration [facility] Melatonin 3 mg 10/10/24 21:00 10/10/24 20:40 Melatonin 3 Mg Tablet PO 3 mg HS [facility] Administration Metoprolol Tartrate 25 mg 10/09/24 21:05 10/11/24 08:52 Metoprolol Tartrate 25 Mg Tablet PO 25 mg Q12HR [facility] Administration Ramipril 5 mg 10/10/24 09:00 Ramipril 5 Mg Capsule BY MOUTH DAILY [facility] Radiology Results: ITS Impressions Head CT 10/09/24 14:57 IMPRESSION: No acute intracranial findings. Labs Labs: Laboratory Results - last 24 hr 10/10/24 10/10/24 10/11/24 16:52 20:03 02:00 WBC 9.4 RBC 4.18 L Hgb 11.3 L Hct 33.4 L MCV 79.9 L MCH 27.0 MCHC 33.8 RDW 13.1 Plt Count 255 MPV 9.8 Sodium 119 L* Potassium 3.4 Chloride 90 L Carbon Dioxide 18 L Anion Gap 11 BUN 15 Creatinine 0.63 L Estim Creat Clear Calc 108 Estimated GFR > 60 Glucose 239 H POC Capillary Glucose 252 H 229 H Calcium 7.5 L Magnesium 2.0 Total Bilirubin 0.6 AST 68 H ALT 39 Alkaline Phosphatase 139 H Total Protein 6.0 L Albumin 2.6 L Ur Random Sodium Vancomycin Trough 8.4 L 10/11/24 10/11/24 10/11/24 04:35 08:39 11:51 WBC RBC Hgb Hct MCV MCH MCHC RDW Plt Count MPV Sodium 121 L Potassium Chloride Carbon Dioxide Anion Gap BUN Creatinine Estim Creat Clear Calc Estimated GFR Glucose POC Capillary Glucose 229 H 277 H Calcium Magnesium Total Bilirubin AST ALT Alkaline Phosphatase Total Protein Albumin Ur Random Sodium Vancomycin Trough 10/11/24 12:28 WBC RBC Hgb Hct MCV MCH MCHC RDW Plt Count MPV Sodium Potassium Chloride Carbon Dioxide Anion Gap BUN Creatinine Estim Creat Clear Calc Estimated GFR Glucose POC Capillary Glucose Calcium Magnesium Total Bilirubin AST ALT Alkaline Phosphatase Total Protein Albumin Ur Random Sodium 14 Vancomycin Trough Quality VTE Prophylaxis VTE prophylaxis: mechanical ordered and pharmacologic ordered
[2024-10-11 16:50] LABS: Glucose Point of Care 258 mg/dl (65-105)
[2024-10-11 19:12] LABS: Sodium 122 mmol/L (137-145)
[2024-10-11 20:32] LABS: Glucose Point of Care 383 mg/dl (65-105)
[2024-10-11] MEDS: MELATONIN 3 MG TABLET PO (20:32)
[2024-10-11] MEDS: INSULIN GLARGINE (*BKC) 100 UNITS/ML 22 UNITS SUB-Q (20:36)
[2024-10-11 21:02] LABS: Sodium 122 mmol/L (137-145)
[2024-10-12] VITALS (13 sets, daily range): BP systolic 123–125; BP diastolic 66–72; PULSE 106–120; RESP 18–20; TEMP 36.4–38.8; O2SAT 92–95
[2024-10-12 03:04] LABS: Hematocrit 29.6 % (42.0-52.0); Mean Corpuscular HGB Conc 33.8 g/dl (32-36); Mean Corpuscular Volume 79.8 fl (80-100); Mean Platelet Volume 9.7 fl (7.4-10.4); Platelet Count Result 319 k/mm3 (150-375); Red Blood Count 3.71 M/mm3 (4.6-6.20); White Blood Count 10.1 K/mm3 (4.5-10.0)
[2024-10-12 03:26] LABS: Vancomycin Trough 17.6 ug/mL (10.0-20.0)
[2024-10-12 03:54] LABS: Alanine Aminotransferase 43 U/L (6-50); Albumin Level 2.7 g/dL (3.5-5.1); Alkaline Phosphatase 167 U/L (38-126); Anion Gap 10 mmol/L (4-12); Aspartate Amino Transferase 59 U/L (17-59); Bilirubin,Total 0.4 mg/dL (0.2-1.3); Blood Urea Nitrogen 11 mg/dL (9-20); Calcium 7.2 mg/dL (8.4-10.2); Carbon Dioxide 22 mmol/L (22-30); Chloride 93 mmol/L (98-107); Estimated CRCL calculation 104 ml/min; Estimated Glomerular Filt Rate > 60; Glucose 215 mg/dL (65-110); Magnesium 2.1 mg/dL (1.6-2.3); Potassium 2.8 mmol/L (3.4-5.0); Sodium 125 mmol/L (137-145)
[2024-10-12] MEDS: SODIUM CHLORIDE 0.9% IV 1,000 ML 75 ML IV CONT (03:59)
[2024-10-12] MEDS: VANCOMYCIN 1,750 MG/NS 500 ML 1,750 MG/500 ML BAG 125 MG IVPB (04:25)
[2024-10-12] MEDS: POTASSIUM CHLORIDE 20 MEQ ER TABLET 60 MEQ PO (04:28)
[2024-10-12 07:05] LABS: Potassium 2.7 mmol/L (3.4-5.0)
[2024-10-12 08:43] LABS: Glucose Point of Care 216 mg/dl (65-105)
[2024-10-12] MEDS: POTASSIUM CHLORIDE 20 MEQ ER TABLET 40 MEQ PO ×2 (08:54→18:19)
[2024-10-12] MEDS: cefTRIAXone 2 GM/NS 100 ML 2 GM/100 ML BAG IVPB (08:54)
[2024-10-12] MEDS: ASPIRIN 81 MG ENTERIC TABLET PO (08:54)
[2024-10-12] MEDS: ATORVASTATIN 40 MG TABLET BY MOUTH (08:54)
[2024-10-12] MEDS: INSULIN ASPART (*BKC) 100 UNITS/ML SUB-Q ×7 (08:55→20:36)
[2024-10-12] MEDS: METOPROLOL TARTRATE 25 MG TABLET PO ×2 (08:56→20:35)
[2024-10-12] MEDS: POTASSIUM CHLORIDE INJ 40 MEQ in SODIUM CHLORIDE 0.9% IV 500 ML 130 MEQ IVPB ×2 (10:11→18:19)
[2024-10-12 12:00] LABS: Glucose Point of Care 280 mg/dl (65-105)
--- NOTE | 2024-10-12 12:25 | P.CONNP_ITS ---
Assessment and Plan Assessment and plan (1) Hyponatremia: Code(s): E87.1 - Hypo-osmolality and hyponatremia Status: Acute Assessment and Plan: * slow improvement noted at this time * sodium 131mmol/L approximately six months ago * however, his blood sugar was 471 at that time -- corrected sodium would be ~ 137 - 140mmol/L * evaluation to date noted: * TSH okay * cortisol in range * urine sodium low indication of prerenal factors * serum/urine osmolality pending * SPEP/UPEP pending * CT of head negative * no culptrit medications (i.e. thiazide diuretics, SSRIs, narcotics...etc) * check CXR for completeness (to rule out any lung pathology contributing to low sodium) * improvement in sodium noted with gentle IVFs * goal of therapy is a rate of change of 6 - 8mmol/L in 24 hours (so far at goal) * suspect due to volume depletion exacerbated by hyperglycemia/DKA * follow trend of repeat sodium levels (2) Bacteremia: Code(s): R78.81 - Bacteremia Status: Acute Assessment and Plan: * as noted by culture data: * 10/09 blood cultures (2/2) - Staphylococcus aureus * 10/11 blood cultures (2/2) - Staphylococcus aureus * follow repeat cultures * on antibiotics (3) DKA (diabetic ketoacidosis): Code(s): E11.10 - Type 2 diabetes mellitus with ketoacidosis without coma Status: Resolved Assessment and Plan: * as noted on admission * resolved with appropriate treatment (IVFs, insulin gtt...etc) * possibly triggered by infection (seen #2 and #4) (4) Scalp abscess: Code(s): L02.811 - Cutaneous abscess of head [any part, except face] Status: Acute Assessment and Plan: * presumed source of #2 * wound culture with Heavy growth of Staphylococcus aureus * General Surgery following: * status post I&D x 2 * continue packing dressing changes * local wound care * on IV antibiotics (5) Hypokalemia: Code(s): E87.6 - Hypokalemia Status: Acute Assessment and Plan: * noted on 10/12 labs * replacement ongoing * magnesium okay * follow trend (6) Anemia: Code(s): D64.9 - Anemia, unspecified Status: Acute Assessment and Plan: * noted downward trend since admission * possibly related to hemoconcentration with admission volume depletion * follow trend of H/H (7) Essential (primary) hypertension: Code(s): I10 - Essential (primary) hypertension Status: Chronic Assessment and Plan: * reasonable control * follow trend of hemodynamics (8) Type 2 diabetes mellitus with hyperglycemia: Code(s): E11.65 - Type 2 diabetes mellitus with hyperglycemia Status: Chronic Assessment and Plan: * poor control at baseline * HgbA1c 12... * admitted with DKA (see #3) * follow accu-cheks * glycemic control per hospitalist I will continue to follow the patient with you while he remains hospitalized and make further recommendations as deemed necessary. Thank you for allowing me to participate in the care of this patient. L History of Present Illness Reason for Consult Consult date: 10/12/24 Reason for consult: hyponatremia Chief Complaint Chief complaint: DKA/Abscess/Hyponatremia History of Present Illness Narrative: The patient is a 49-year-old male with a past medical history as outlined below who presented to [facility] Emergency Room for a scalp abscess. The patient states about a week ago he bumped his head on his desk and is noted areas of swelling on his scalp via palpation since that time. Unfortunately, the swelling has persisted and has become a little bit more tender to touch over the last few days. He felt that these swellings were abscesses as he has this issue/problem in the past. This is further complicated by the fact that he was also having fevers, chills, nausea, vomiting and poor oral intake as well. He gave no other symptoms with regard to chest pain, shortness of breath, productive cough, dysuria, hematuria, hematochezia, melena, abdominal pain, diarrhea, constipation, dizziness, lightheadedness, or loss of consciousness. Given his symptoms in conjunction with more pain related to the abscesses on his scalp, he presented to the ER for further assessment. Workup and evaluation emergency room demonstrated the patient to be febrile with a temperature of 102.4?, tachycardic, tachypneic, but otherwise hemodynamically stable if not a bit hypertensive. Routine blood test were significant for a white blood cell count of 15.8, normal renal function, sodium of 119, carbon dioxide of 15, glucose of 543, lactic acid of 3.0, C-reactive protein of 32.5, beta hydroxybutyrate of 4.05 and a UA with 3+ glucose and 3+ ketones. CT scan of the head was negative for any acute intracranial process but did show areas on his scalp suspicious for a possible hematoma. Given the patient's symptoms, it was suspected that the hematoma was more likely an abscess given the patient's history and previous episodes of this in the past. The ER physician did incision drainage of the abscess after which point he was initiated on IV antibiotic therapy after appropriate cultures were obtained. Given evidence of diabetic ketoacidosis, he received IV insulin and was subsequently started on an IV insulin drip as well. He was subsequently transferred to the intensive care unit for further evaluation and therapy. Since his admission, his DKA has been treated appropriately with IV fluids and the IV insulin drip and both of these have since been weaned off. He was subsequently transferred out to the floor for ongoing medical management and therapy. He has been seen by surgery and underwent another incision and drainage x 2 regarding his scalp abscesses that were present. His wound and blood cultures are positive for Staph coccus aureus and he remains on appropriate antibiotic therapy at this time. Renal consultation was requested due to his acute hyponatremia. As mentioned above, the patient's sodium level on admission was 119 and although his blood sugar was elevated, even his corrected sodium was still on the lower side of normal. Following his transfer to the floor, he was initiated on low-dose normal saline IV fluids with some slow improvement in his sodium level. In spite of his low sodium level on admission and currently, he does not appear to have any neurological sequelae related to this electrolyte abnormality. Furthermore, the patient does not report any history of hyponatremia in the past although there are some blood tests in the [facility] system that show his sodium level to be low but this once again is in conjunction with significant hyperglycemia with his corrected sodium level being closer to the normal range in general. He does not appear to be on any medications with regard to thiazide diuretics, SSRIs, narcotics, proton pump inhibitors,or any antiseizure medications (tegretol). He has no history thyroid disease, lung disease, or any recent diagnosis of cancer/malignancy. Currently, the time my evaluation, he appears to be in no acute distress. Review of Systems 2 Review of Systems: As per HPI. [facility] Past Medical History Medical History (Updated 10/14/24 @ 14:21 by Katie Cruz MD) Essential (primary) hypertension Coronary artery disease Mixed hyperlipidemia Type 2 diabetes mellitus with hyperglycemia Family History Family History Grandparent Family history of type 2 diabetes mellitus Other Cerebrovascular accident Family history of cardiovascular disease Family history of lung cancer Hypertension Social History Social History Smoking status: Never smoker Second hand tobacco smoke exposure: No Alcohol intake: former Substance use type: does not use Do You Feel Safe in your Home?: Yes Lack of Transportation: No Lack of Food: Never True Current Housing: I Have Housing Concerned About Future Housing: No Difficulty Paying Gas/Electric Bills: No Difficulty Paying for Meds: No Currently Unemployed: No Education: Associate Degree Difficulty w/ Childcare or Family Care: No Spiritual care concerns: No Meds Home Medications and Allergies Home Medications ?Medication ?Instructions ?Recorded ?Confirmed ?Type aspirin 81 mg tablet,delayed 81 mg PO DAILY 11/14/19 10/09/24 History release (Adult Low Dose Aspirin) metoprolol tartrate 25 mg tablet 25 mg PO BID #60 tabs 06/05/21 10/09/24 Rx dapagliflozin propaned 5 1 tablet PO BID diabetes #60 ea 07/01/21 10/09/24 Rx mg-metformin ER 1,000 mg tablet, ext rel 24hr (Xigduo XR) atorvastatin 40 mg tablet See Rx Instructions .Route 08/26/21 10/09/24 Rx .COMPLEX #90 tabs ramipril 5 mg capsule See Rx Instructions .Route 08/26/21 10/09/24 Rx .COMPLEX #90 caps Allergies Allergy/AdvReac Type Severity Reaction Status Date / Time No Known Allergies Allergy Verified 10/09/24 12:56 Vital Signs Vital Signs Temp Pulse Resp BP Pulse Ox O2 Del Method FiO2 10/12/24 08:56 110 H 10/12/24 08:55 Room Air 10/12/24 04:00 110 H 10/12/24 02:08 115 H 20 92 Room Air 21 10/12/24 00:00 113 H 10/11/24 20:56 99.3 F 118 H 24 H 122/67 96 10/11/24 20:00 118 H 10/11/24 20:00 118 H 24 H 96 Room Air 21 10/11/24 16:00 111 H Exam 2 Narrative: GENERAL APPEARANCE: well developed well nourished male in no acute distress HEENT: normocephalic, atraumatic, normal conjunctiva and sclera, nares patient NECK: no lymphadenopathy, thyromegaly, or JVD MOUTH: normal lips, teeth, and gums CARDIOVASCULAR: RRR, normal S1 and S2, no rub detected RESPIRATORY: clear anteriorly ABDOMEN: soft, nontender, nondistended, positive bowel sounds present EXTREMITIES: no evidence of cyanosis, clubbing, or edema NEUROLOGICAL: alert and oriented x 3; CN II - XII intact bilaterally; no focal deficits noted Results Lab Results 10/14/24 05:18 10/14/24 05:19 Lab results: Most recent lab results Calcium 7.2 mg/dL (8.4-10.2) L 10/12/24 02:56 Phosphorus 3.0 mg/dL (2.5-4.5) 10/09/24 13:38 Magnesium 2.1 mg/dL (1.6-2.3) 10/12/24 02:56
--- NOTE | 2024-10-12 12:59 | PCCDE ---
10/12/24 ~ 12:35 pm Scheduled dosing Currently Lantus: 22 U Novolog 4 U TIDwm Correction dosing administered POC: Fastin (10/11) 216 (10/12) 10/11: Preprandial: 227-258 HS: 383 10/12: Pre-L: 280 Recommend increase: Lantus from 22 U to 25 U Novolog from 4 U TIDwm to 5 U TIDwm. Spoke with Dr. Lawrence by phone ([facility]) Continue to monitor glucose for potential insulin titration needs. Thank you [facility]J
--- NOTE | 2024-10-12 13:39 | P.PNIM_ITS ---
Progress Note: A&P Assessment and Plan (1) Abscess: Code(s): L02.91 - Cutaneous abscess, unspecified Status: Acute Assessment and Plan: Sepsis secondary to scalp abscess I&D in ED Fluid bolus Rocephin and vancomycin Repeat lactic Blood cultures pending Wound culture pending (2) DKA (diabetic ketoacidosis): Code(s): E11.10 - Type 2 diabetes mellitus with ketoacidosis without coma Status: Acute Assessment and Plan: BMP q.4 NPO Insulin drip per protocol Bolus 3 L fluid for dehydration (3) Acute hyponatremia: Code(s): E87.1 - Hypo-osmolality and hyponatremia Status: Acute Assessment and Plan: Slowly improving with IV hydration BMP Q 4 (4) Type 2 diabetes mellitus with hyperglycemia: Code(s): E11.65 - Type 2 diabetes mellitus with hyperglycemia Status: Acute Assessment and Plan: Hemoglobin A1c 12 clinical trial educator Currently on insulin drip (5) Coronary artery disease: Code(s): I25.10 - Atherosclerotic heart disease of [place] coronary artery without angina pectoris Status: Acute (6) Essential (primary) hypertension: Code(s): I10 - Essential (primary) hypertension Status: Acute Assessment and Plan: Hold home antihypertensive meds (7) Mixed hyperlipidemia: Code(s): E78.2 - Mixed hyperlipidemia Status: Acute (8) Sepsis: Code(s): A41.9 - Sepsis, unspecified organism Status: Acute (9) Tachycardia: Code(s): R00.0 - Tachycardia, unspecified Status: Acute Assessment and Plan: Continue home metoprolol Plan patient with history of diabetes presented with DKA was initially admitted into ICU was treated with iv insulin and his GAP closed and patient was transferred out of ICU, patient also presented with 2 abscess on occipital area, one of the abscess was I&D in the ER, Patient was seen by surgery service and recommended further I&D which scheduled for tomorrow at bedside as patient received Lovenox today, patient has uncontrolled diabetes he presented with A1c of 12, he was seen by PMD in January 2024 and his A1c was 7, patient stats in winter has not been able to do his regular exercise and diet control, and feels very tired and weak, patient has hyponatremia most likely dehydration patient is being gently hydrated, will consult heavy equipment supervisor for further recommendation, also patient had I&D of his 2nd abscess on 10/11, wound culture is growing Staph aureus discussed with clinical pharmacist will continue ceftriaxone and monitor, patient has hyponatremia most likely secondary to dehydration patient is gently hydrated and his sodium is trending up, today patient states is feeling much better compared to when he arrived, also discussed with the in service educator will adjust insulin to monitor blood sugar, will have PT/OT evaluate the patient. patient will benefit going to rehab. Subjective Date/time seen: 10/12/24 13:39 Interval history: Scalp abscess Narrative: 49-year-old male with past medical history of CABG x3, diabetes type 2, hyperlipidemia, CAD and hypertension presents the hospital with scalp abscess. Patient states that about a week ago he noticed he had abscesses on the back of his head. He states that he did not do anything about it in less than laid around his house and slept. Patient complains of fever and chills, nausea vomiting, and decreased oral intake. His lab work shows leukocytosis at 15.8, hyponatremia of 119, chloride of 79, carbon dioxide 15 anion gap of 25, glucose of 543, lactic acid 3.0, magnesium 2.4, C-reactive protein 32.1, beta hydroxybutyrate of 4.05. Urine shows 3+ glucose 3+ ketones negative leukocyte esterase negative nitrate. Head CT and blood cultures pending. EKG shows sinus tachycardia with QTC of 557. Patient had T-max of 102.4?, heart rate 141, respirations 28 and hypertensive 155/98. In the ED he received 15 units of regular IV insulin followed by insulin drip vancomycin, Rocephin, and I&D of abscess. patient with history of diabetes presented with DKA was initially admitted into ICU was treated with iv insulin and his GAP closed and patient was transferred out of ICU, patient also presented with 2 abscess on occipital area, one of the abscess was I&D in the ER, Patient was seen by surgery service and recommended further I&D which scheduled for tomorrow at bedside as patient received Lovenox today, patient has uncontrolled diabetes he presented with A1c of 12, he was seen by PMD in January 2024 and his A1c was 7, patient stats in winter has not been able to do his regular exercise and diet control, and feels very tired and weak, patient has hyponatremia most likely dehydration patient is being gently hydrated, will consult heavy equipment supervisor for further recommendation, also patient had I&D of his 2nd abscess on 10/11, wound culture is growing Staph aureus discussed with clinical pharmacist will continue ceftriaxone and monitor, patient has hyponatremia most likely secondary to dehydration patient is gently hydrated and his sodium is trending up, today patient states is feeling much better compared to when he arrived, also discussed with the in service educator will adjust insulin to monitor blood sugar, will have PT/OT evaluate the patient. patient will benefit going to rehab. Review of Systems Review of Systems: 12 systems were reviewed and are negativ e except for as per HPI. All systems reviewed & are unremarkable except as noted in HPI and below ( HPI) Exam Narrative: Patient is comfortable, NAD HEENT: eyes are clear and none icteric LUNGS:CTA HEART: RR S1S2 ABD: BS+, Soft and nontender Lower extremities: no edema SKIN: nonjaundiced: occipital 2x abscesses no drainage. Neuro: grossly intact. Objective Data Vital Signs Vital Signs: Vital Signs - 24 hr 10/11/24 14:00 10/11/24 16:00 10/11/24 20:00 Temperature 36.6 C Pulse Rate 99 111 H 118 H Respiratory Rate 19 24 H Blood Pressure 129/82 Pulse Oximetry 95 96 Oxygen Delivery Room Air Fraction of Inspired Oxygen 21 10/11/24 20:00 10/11/24 20:56 10/12/24 00:00 Temperature 37.4 C Pulse Rate 118 H 118 H 113 H Respiratory Rate 24 H Blood Pressure 122/67 Pulse Oximetry 96 Oxygen Delivery Fraction of Inspired Oxygen 10/12/24 02:08 10/12/24 04:00 10/12/24 08:55 Temperature Pulse Rate 115 H 110 H Respiratory Rate 20 Blood Pressure Pulse Oximetry 92 Oxygen Delivery Room Air Room Air Fraction of Inspired Oxygen 10/12/24 08:56 Temperature Pulse Rate 110 H Respiratory Rate Blood Pressure Pulse Oximetry Oxygen Delivery Fraction of Inspired Oxygen Intake/Output Intake/Output: Intake & Output 10/09/24 10/10/24 10/11/24 10/12/24 23:59 23:59 23:59 23:59 Intake Total 4550.7 3936.9 2942 962 Output Total 650 1500 2000 1425 Balance 3900.7 2436.9 942 -463 Meds/Results Medications: Active Medications Generic Name Dose Route Start Last Admin Trade Name Freq PRN Reason Stop Dose Admin Acetaminophen 650 mg 10/09/24 20:05 10/10/24 20:40 Acetaminophen 325 Mg Tablet PO 650 mg Q4H PRN Administration Mild Pain (1-3) or Fever Aspirin 81 mg 10/10/24 09:00 10/12/24 08:54 Aspirin 81 Mg Enteric Tablet PO 81 mg DAILY RUBY Administration Atorvastatin Calcium 40 mg 10/10/24 09:00 10/12/24 08:54 Atorvastatin 40 Mg Tablet BY MOUTH 40 mg DAILY RUBY Administration Dextrose 12.5 gm 10/09/24 14:14 Dextrose 50% 25 Gm/50 Ml Syringe IV PUSH PRN PRN Hypoglycemia Protocol Enoxaparin Sodium 40 mg 10/10/24 09:00 10/10/24 08:47 Enoxaparin 40 Mg/0.4 Ml Syringe SUB-Q 40 mg DAILY RUBY Administration Glucagon 1 mg 10/09/24 14:14 Glucagon For Inj 1 Mg Vial IM PRN PRN Hypoglycemia Protocol Glucose 15 gm 10/09/24 14:14 Glucose Oral Gel 15 Gm Of Glucse In 37.5 Gm Tube PO PRN PRN Hypoglycemia Protocol Dextrose 1,000 mls @ 100 mls/hr 10/09/24 14:14 Dextrose 5% 1,000 Ml IVPB PRN PRN Hypoglycemia Protocol Sodium Chloride 1,000 mls @ 75 mls/hr 10/11/24 03:25 10/12/24 03:59 Normal Saline Iv IV CONT 75 mls/hr .[id number] RUBY Administration Ceftriaxone Sodium 2 gm in 100 mls @ 200 mls/hr 10/12/24 09:00 10/12/24 08:54 Rocephin 2 Gm/Ns 100 Ml IVPB 200 mls/hr DAILY [facility] Administration Insulin Aspart 3 - 6 units 10/10/24 08:00 10/12/24 12:13 Insulin Aspart (*Bkc) 100 Units/Ml SUB-Q 4 units [facility] Administration Protocol Insulin Aspart 1 - 3 units 10/10/24 21:00 10/11/24 20:35 Insulin Aspart (*Bkc) 100 Units/Ml SUB-Q 3 units HS [facility] Administration Protocol Insulin Aspart 4 units 10/10/24 09:00 10/12/24 12:13 Insulin Aspart (*Bkc) 100 Units/Ml 0.05 units/kg (4 units) 4 units SUB-Q Administration [facility] Insulin Glargine 22 units 10/10/24 00:45 10/11/24 20:36 Insulin Glargine (*Bkc) 100 Units/Ml 0.3 units/kg (22 units) 22 units SUB-Q Administration HS RUBY Melatonin 3 mg 10/10/24 21:00 10/11/24 20:32 Melatonin 3 Mg Tablet PO 3 mg HS RUBY Administration Metoprolol Tartrate 25 mg 10/09/24 21:05 10/12/24 08:56 Metoprolol Tartrate 25 Mg Tablet PO 25 mg Q12HR RUBY Administration Ramipril 5 mg 10/10/24 09:00 Ramipril 5 Mg Capsule BY MOUTH DAILY [facility] Radiology Results: ITS Impressions Head CT 10/09/24 14:57 IMPRESSION: No acute intracranial findings. Labs Labs: Laboratory Results - last 24 hr 10/11/24 10/11/24 10/11/24 15:47 16:44 20:19 WBC RBC Hgb Hct MCV MCH MCHC RDW Plt Count MPV Sodium 122 L Potassium Chloride Carbon Dioxide Anion Gap BUN Creatinine Estim Creat Clear Calc Estimated GFR Glucose POC Capillary Glucose 258 H 383 H Calcium Magnesium Total Bilirubin AST ALT Alkaline Phosphatase Total Protein Albumin TSH (Reflex) Random Cortisol Vancomycin Trough 10/11/24 10/12/24 10/12/24 20:50 02:56 06:47 WBC 10.1 H RBC 3.71 L Hgb 10.0 L Hct 29.6 L MCV 79.8 L MCH 27.0 MCHC 33.8 RDW 13.0 Plt Count 319 MPV 9.7 Sodium 122 L 125 L Potassium 2.8 L* 2.7 L* Chloride 93 L Carbon Dioxide 22 Anion Gap 10 BUN 11 Creatinine 0.66 L Estim Creat Clear Calc 104 Estimated GFR > 60 Glucose 215 H POC Capillary Glucose Calcium 7.2 L Magnesium 2.1 Total Bilirubin 0.4 AST 59 ALT 43 Alkaline Phosphatase 167 H Total Protein 6.0 L Albumin 2.7 L TSH (Reflex) 2.030 Random Cortisol 28.70 Vancomycin Trough 17.6 10/12/24 10/12/24 08:31 11:57 WBC RBC Hgb Hct MCV MCH MCHC RDW Plt Count MPV Sodium Potassium Chloride Carbon Dioxide Anion Gap BUN Creatinine Estim Creat Clear Calc Estimated GFR Glucose POC Capillary Glucose 216 H 280 H Calcium Magnesium Total Bilirubin AST ALT Alkaline Phosphatase Total Protein Albumin TSH (Reflex) Random Cortisol Vancomycin Trough Quality VTE Prophylaxis VTE prophylaxis: mechanical ordered and pharmacologic ordered
--- NOTE | 2024-10-12 16:20 | PM.PNGS ---
Progress Note: A&P Assessment and Plan (1) Scalp abscess: Code(s): L02.811 - Cutaneous abscess of head [any part, except face] Status: Acute Assessment and Plan: Status post incision and drainage of scalp abscess x2. Abscesses appear adequately drained, although no packing in place. We will continue packing dressing changes. This was repacked during my exam today. Continue antibiotics. Will reassess tomorrow. (2) Sepsis: Code(s): A41.9 - Sepsis, unspecified organism Status: Acute Assessment and Plan: Likely related to scalp abscesses. No fevers since I&D. WBC 10,000, repeat labs tomorrow. See plan above. Continue IV antibiotics. (3) Type 2 diabetes mellitus with hyperglycemia: Code(s): E11.65 - Type 2 diabetes mellitus with hyperglycemia Status: Acute Plan I have discussed the patient's case and plan of care with Dr. Martell. Subjective Subjective Date/Time Seen: 10/12/24 16:20 Post Op day: 1 (Incision and drainage scalp abscess x2) Patient reports: no new complaints Interval history: Feels like the tenderness on the right side of his posterior scalp has improved. Denies any actual pain. His dressing is not in place and he cannot recall when it fell off for if packing was removed. No packing in place on my exam. Exam Narrative: Posterior scalp abscesses with no packing in place. I was able to manipulate the incision and there was scant purulent drainage within the abscess cavity x2. I repacked both incisions. Overall erythema and swelling is improving, with less tenderness. Gauze dressing applied over the packing and held in place with tape. Objective Data Vital Signs Vital Signs: Vital Signs - 24 hr 10/11/24 20:00 10/11/24 20:00 10/11/24 20:56 Temperature 99.3 F Pulse Rate 118 H 118 H 118 H Respiratory Rate 24 H 24 H Blood Pressure 122/67 Pulse Oximetry 96 96 Oxygen Delivery Room Air Fraction of Inspired Oxygen 10/12/24 00:00 10/12/24 02:08 10/12/24 04:00 Temperature Pulse Rate 113 H 115 H 110 H Respiratory Rate 20 Blood Pressure Pulse Oximetry 92 Oxygen Delivery Room Air Fraction of Inspired Oxygen 10/12/24 08:00 10/12/24 08:55 10/12/24 08:56 Temperature Pulse Rate 108 H 110 H Respiratory Rate Blood Pressure Pulse Oximetry Oxygen Delivery Room Air Fraction of Inspired Oxygen 10/12/24 12:00 10/12/24 16:00 Temperature Pulse Rate 106 H 106 H Respiratory Rate Blood Pressure Pulse Oximetry Oxygen Delivery Fraction of Inspired Oxygen Intake/Output Intake/Output: Intake & Output 10/09/24 10/10/24 10/11/24 10/12/24 23:59 23:59 23:59 23:59 Intake Total 4550.7 3936.9 2942 962 Output Total 650 1500 2000 1425 Balance 3900.7 2436.9 942 463 Meds/Results Medications: Active Medications Generic Name Dose Route Start Last Admin Trade Name Freq PRN Reason Stop Dose Admin Acetaminophen 650 mg 10/09/24 20:05 10/10/24 20:40 Acetaminophen 325 Mg Tablet PO 650 mg Q4H PRN Administration Mild Pain (1-3) or Fever Aspirin 81 mg 10/10/24 09:00 10/12/24 08:54 Aspirin 81 Mg Enteric Tablet PO 81 mg DAILY RUBY Administration Atorvastatin Calcium 40 mg 10/10/24 09:00 10/12/24 08:54 Atorvastatin 40 Mg Tablet BY MOUTH 40 mg DAILY RUBY Administration Dextrose 12.5 gm 10/09/24 14:14 Dextrose 50% 25 Gm/50 Ml Syringe IV PUSH PRN PRN Hypoglycemia Protocol Enoxaparin Sodium 40 mg 10/10/24 09:00 10/10/24 08:47 Enoxaparin 40 Mg/0.4 Ml Syringe SUB-Q 40 mg DAILY RUBY Administration Glucagon 1 mg 10/09/24 14:14 Glucagon For Inj 1 Mg Vial IM PRN PRN Hypoglycemia Protocol Glucose 15 gm 10/09/24 14:14 Glucose Oral Gel 15 Gm Of Glucse In 37.5 Gm Tube PO PRN PRN Hypoglycemia Protocol Dextrose 1,000 mls @ 100 mls/hr 10/09/24 14:14 Dextrose 5% 1,000 Ml IVPB PRN PRN Hypoglycemia Protocol Sodium Chloride 1,000 mls @ 75 mls/hr 10/11/24 03:25 10/12/24 03:59 Normal Saline Iv IV CONT 75 mls/hr .[id number] RUBY Administration Ceftriaxone Sodium 2 gm in 100 mls @ 200 mls/hr 10/12/24 09:00 10/12/24 08:54 Rocephin 2 Gm/Ns 100 Ml IVPB 200 mls/hr DAILY [facility] Administration Insulin Aspart 3 - 6 units 10/10/24 08:00 10/12/24 12:13 Insulin Aspart (*Bkc) 100 Units/Ml SUB-Q 4 units [facility] Administration Protocol Insulin Aspart 1 - 3 units 10/10/24 21:00 10/11/24 20:35 Insulin Aspart (*Bkc) 100 Units/Ml SUB-Q 3 units HS [facility] Administration Protocol Insulin Aspart 5 units 10/12/24 17:00 Insulin Aspart (*Bkc) 100 Units/Ml SUB-Q [facility] Insulin Glargine 25 units 10/12/24 21:00 Insulin Glargine (*Bkc) 100 Units/Ml SUB-Q HS [facility]BY Melatonin 3 mg 10/10/24 21:00 10/11/24 20:32 Melatonin 3 Mg Tablet PO 3 mg HS RUBY Administration Metoprolol Tartrate 25 mg 10/09/24 21:05 10/12/24 08:56 Metoprolol Tartrate 25 Mg Tablet PO 25 mg Q12HR RUBY Administration Ramipril 5 mg 10/10/24 09:00 Ramipril 5 Mg Capsule BY MOUTH DAILY [facility] Radiology Results: ITS Impressions Head CT 10/09/24 14:57 IMPRESSION: No acute intracranial findings. Labs Labs: Laboratory Results - last 24 hr 10/11/24 10/11/24 10/11/24 15:47 16:44 20:19 WBC RBC Hgb Hct MCV MCH MCHC RDW Plt Count MPV Sodium 122 L Potassium Chloride Carbon Dioxide Anion Gap BUN Creatinine Estim Creat Clear Calc Estimated GFR Glucose POC Capillary Glucose 258 H 383 H Calcium Magnesium Total Bilirubin AST ALT Alkaline Phosphatase Total Protein Albumin TSH (Reflex) Random Cortisol Vancomycin Trough 10/11/24 10/12/24 10/12/24 20:50 02:56 06:47 WBC 10.1 H RBC 3.71 L Hgb 10.0 L Hct 29.6 L MCV 79.8 L MCH 27.0 MCHC 33.8 RDW 13.0 Plt Count 319 MPV 9.7 Sodium 122 L 125 L Potassium 2.8 L* 2.7 L* Chloride 93 L Carbon Dioxide 22 Anion Gap 10 BUN 11 Creatinine 0.66 L Estim Creat Clear Calc 104 Estimated GFR > 60 Glucose 215 H POC Capillary Glucose Calcium 7.2 L Magnesium 2.1 Total Bilirubin 0.4 AST 59 ALT 43 Alkaline Phosphatase 167 H Total Protein 6.0 L Albumin 2.7 L TSH (Reflex) 2.030 Random Cortisol 28.70 Vancomycin Trough 17.6 10/12/24 10/12/24 08:31 11:57 WBC RBC Hgb Hct MCV MCH MCHC RDW Plt Count MPV Sodium Potassium Chloride Carbon Dioxide Anion Gap BUN Creatinine Estim Creat Clear Calc Estimated GFR Glucose POC Capillary Glucose 216 H 280 H Calcium Magnesium Total Bilirubin AST ALT Alkaline Phosphatase Total Protein Albumin TSH (Reflex) Random Cortisol Vancomycin Trough
[2024-10-12 17:01] LABS: Potassium 2.8 mmol/L (3.4-5.0)
[2024-10-12 17:16] LABS: Glucose Point of Care 212 mg/dl (65-105)
[2024-10-12] MEDS: MELATONIN 3 MG TABLET PO (20:35)
[2024-10-12] MEDS: ACETAMINOPHEN 325 MG TABLET 650 MG PO (20:35)
[2024-10-12] MEDS: INSULIN GLARGINE (*BKC) 100 UNITS/ML 25 UNITS SUB-Q (20:36)
[2024-10-12 20:54] LABS: Sodium 128 mmol/L (137-145)
[2024-10-12 21:05] LABS: Glucose Point of Care 286 mg/dl (65-105)
[2024-10-13] VITALS (12 sets, daily range): BP systolic 121–138; BP diastolic 67–83; PULSE 80–123; RESP 16–20; TEMP 36.3–37.3; O2SAT 91–98
[2024-10-13] MEDS: SODIUM CHLORIDE 0.9% IV 1,000 ML 75 ML IV CONT (03:51)
[2024-10-13 04:51] LABS: Hematocrit 31.5 % (42.0-52.0); Hemoglobin 10.4 g/dL (14.0-18.0); Mean Corpuscular Hemoglobin 27.2 pg (26-34); Mean Corpuscular Volume 82.2 fl (80-100); Platelet Count Result 336 k/mm3 (150-375); Red Blood Count 3.83 M/mm3 (4.6-6.20); Red Cell Distribution Width 13.4 % (11.5-14.5); White Blood Count 9.1 K/mm3 (4.5-10.0)
[2024-10-13 05:06] LABS: Alanine Aminotransferase 69 U/L (6-50); Albumin Level 2.5 g/dL (3.5-5.1); Alkaline Phosphatase 197 U/L (38-126); Anion Gap 5 mmol/L (4-12); Aspartate Amino Transferase 112 U/L (17-59); Bilirubin,Total 0.4 mg/dL (0.2-1.3); Blood Urea Nitrogen 10 mg/dL (9-20); Calcium 7.2 mg/dL (8.4-10.2); Carbon Dioxide 27 mmol/L (22-30); Chloride 100 mmol/L (98-107); Estimated CRCL calculation 111 ml/min; Estimated Glomerular Filt Rate > 60; Glucose 183 mg/dL (65-110); Magnesium 2.2 mg/dL (1.6-2.3); Potassium 2.9 mmol/L (3.4-5.0); Sodium 132 mmol/L (137-145)
[2024-10-13] MEDS: POTASSIUM CHLORIDE 20 MEQ ER TABLET 40 MEQ PO ×2 (05:53→11:19)
[2024-10-13 07:42] LABS: Glucose Point of Care 174 mg/dl (65-105)
[2024-10-13] MEDS: cefTRIAXone 2 GM/NS 100 ML 2 GM/100 ML BAG IVPB (08:23)
[2024-10-13] MEDS: INSULIN ASPART (*BKC) 100 UNITS/ML SUB-Q ×4 (08:23→17:35)
[2024-10-13] MEDS: ASPIRIN 81 MG ENTERIC TABLET PO (08:24)
[2024-10-13] MEDS: METOPROLOL TARTRATE 25 MG TABLET PO ×2 (08:24→20:56)
[2024-10-13] MEDS: ATORVASTATIN 40 MG TABLET BY MOUTH (08:25)
--- NOTE | 2024-10-13 08:36 | PCOTNOTE ---
The patient treatment was not able to be completed. Patient eating breakfast. Will plan to continue treatment per plan of care.
[2024-10-13 11:37] LABS: Glucose Point of Care 256 mg/dl (65-105)
--- NOTE | 2024-10-13 11:42 | P.PNGS_ITS ---
Progress Note: A&P Assessment and Plan (1) Scalp abscess: Code(s): L02.811 - Cutaneous abscess of head [any part, except face] Status: Acute Assessment and Plan: * Status post I&D posterior scalp abscess x2. He continues to have fevers, but abscesses appear adequately drained. Surrounding erythema and tenderness is improving. Continue packing dressing changes. Continue IV antibiotics. Will continue to follow. (2) Bacteremia due to Staphylococcus aureus: Code(s): R78.81 - Bacteremia; B95.61 - Methicillin susceptible Staphylococcus aureus infection as the cause of diseases classified elsewhere Status: Acute Assessment and Plan: * Blood cx on 10/09 grew MSSA. Repeat cx on 10/11 growing staph, sensitivities pending. Currently on IV Ceftriaxone, which would be appropriate with sensitivities. Wound cultures also growing MSSA. (3) Sepsis: Code(s): A41.9 - Sepsis, unspecified organism Status: Acute Assessment and Plan: * WBC count normal. Still having fevers. Abscesses appear adequately drained. Continue IV antibiotics. (4) Type 2 diabetes mellitus with hyperglycemia: Code(s): E11.65 - Type 2 diabetes mellitus with hyperglycemia Status: Acute Plan I have discussed the patient's case and plan of care with Dr. Dawkins. Subjective Subjective Date/Time Seen: 10/13/24 11:42 Post Op day: 2 Patient reports: no new complaints and fever (Temp 102F last night) Interval history: No specific complaints. Denies any pain in his scalp. No acute changes overnight. Exam Narrative: Posterior scalp abscesses x 2 with dressing and packing removed, no purulent drainage, erythema and swelling improved, much less tender today Const: General: comfortable and no acute distress Orientation/consciousness: patient oriented x3 Objective Data Vital Signs Vital Signs: Vital Signs - 24 hr 10/12/24 12:00 10/12/24 14:00 10/12/24 16:00 Temperature 97.6 F Pulse Rate 106 H 107 H 106 H Respiratory Rate 20 Blood Pressure 125/72 Pulse Oximetry 95 Oxygen Delivery Fraction of Inspired Oxygen 10/12/24 19:56 10/12/24 20:00 10/12/24 20:00 Temperature 100.2 F H Pulse Rate 120 H 120 H 120 H Respiratory Rate 18 18 Blood Pressure 123/66 Pulse Oximetry 95 95 Oxygen Delivery Room Air Fraction of Inspired Oxygen 21 10/12/24 20:35 10/12/24 20:35 10/12/24 21:35 Temperature 102 F H 98.4 F Pulse Rate 120 H Respiratory Rate Blood Pressure Pulse Oximetry Oxygen Delivery Fraction of Inspired Oxygen 10/12/24 22:02 10/13/24 00:00 10/13/24 04:00 Temperature 98.4 F Pulse Rate 84 99 Respiratory Rate Blood Pressure Pulse Oximetry Oxygen Delivery Fraction of Inspired Oxygen 10/13/24 04:17 10/13/24 08:00 10/13/24 08:24 Temperature 98.0 F Pulse Rate 97 104 H 100 Respiratory Rate 16 Blood Pressure 137/83 Pulse Oximetry 98 Oxygen Delivery Fraction of Inspired Oxygen Intake/Output Intake/Output: Intake & Output 10/10/24 10/11/24 10/12/24 10/13/24 23:59 23:59 23:59 23:59 Intake Total 3936.9 2942 3304 630 Output Total 1500 2000 3875 350 Balance 2436.9 942 571 280 Meds/Results Medications: Active Medications Generic Name Dose Route Start Last Admin Trade Name Freq PRN Reason Stop Dose Admin Acetaminophen 650 mg 10/09/24 20:05 10/12/24 20:35 Acetaminophen 325 Mg Tablet PO 650 mg Q4H PRN Administration Mild Pain (1-3) or Fever Aspirin 81 mg 10/10/24 09:00 10/13/24 08:24 Aspirin 81 Mg Enteric Tablet PO 81 mg DAILY RUBY Administration Atorvastatin Calcium 40 mg 10/10/24 09:00 10/13/24 08:25 Atorvastatin 40 Mg Tablet BY MOUTH 40 mg DAILY [facility]BY Administration Dextrose 12.5 gm 10/09/24 14:14 Dextrose 50% 25 Gm/50 Ml Syringe IV PUSH PRN PRN Hypoglycemia Protocol Enoxaparin Sodium 40 mg 10/10/24 09:00 10/10/24 08:47 Enoxaparin 40 Mg/0.4 Ml Syringe SUB-Q 40 mg DAILY [facility]BY Administration Glucagon 1 mg 10/09/24 14:14 Glucagon For Inj 1 Mg Vial IM PRN PRN Hypoglycemia Protocol Glucose 15 gm 10/09/24 14:14 Glucose Oral Gel 15 Gm Of Glucse In 37.5 Gm Tube PO PRN PRN Hypoglycemia Protocol Dextrose 1,000 mls @ 100 mls/hr 10/09/24 14:14 Dextrose 5% 1,000 Ml IVPB PRN PRN Hypoglycemia Protocol Sodium Chloride 1,000 mls @ 75 mls/hr 10/11/24 03:25 10/13/24 03:51 Normal Saline Iv IV CONT 75 mls/hr .[id number] RUBY Administration Ceftriaxone Sodium 2 gm in 100 mls @ 200 mls/hr 10/12/24 09:00 10/13/24 08:53 Rocephin 2 Gm/Ns 100 Ml IVPB Infused DAILY [facility] Infusion Insulin Aspart 3 - 6 units 10/10/24 08:00 10/13/24 08:18 Insulin Aspart (*Bkc) 100 Units/Ml SUB-Q Not Given [facility] Protocol Insulin Aspart 1 - 3 units 10/10/24 21:00 10/12/24 20:36 Insulin Aspart (*Bkc) 100 Units/Ml SUB-Q 2 units HS [facility] Administration Protocol Insulin Aspart 5 units 10/12/24 17:00 10/13/24 08:23 Insulin Aspart (*Bkc) 100 Units/Ml SUB-Q 5 units [facility] Administration Insulin Glargine 25 units 10/12/24 21:00 10/12/24 20:36 Insulin Glargine (*Bkc) 100 Units/Ml SUB-Q 25 units HS [facility] Administration Melatonin 3 mg 10/10/24 21:00 10/12/24 20:35 Melatonin 3 Mg Tablet PO 3 mg HS [facility] Administration Metoprolol Tartrate 25 mg 10/09/24 21:05 10/13/24 08:24 Metoprolol Tartrate 25 Mg Tablet PO 25 mg Q12HR RUBY Administration Potassium Chloride 40 meq 10/13/24 12:00 10/13/24 11:19 Potassium Chloride 20 Meq Er Tablet PO 10/13/24 12:01 40 meq ONCE ONE Administration Ramipril 5 mg 10/10/24 09:00 Ramipril 5 Mg Capsule BY MOUTH DAILY [facility] Radiology Results: ITS Impressions Head CT 10/09/24 14:57 IMPRESSION: No acute intracranial findings. Labs Labs: Laboratory Results - last 24 hr 10/12/24 10/12/24 10/12/24 02:56 11:57 16:43 WBC RBC Hgb Hct MCV MCH MCHC RDW Plt Count MPV Sodium Potassium 2.8 L* Chloride Carbon Dioxide Anion Gap BUN Creatinine Estim Creat Clear Calc Estimated GFR Glucose POC Capillary Glucose 280 H Calcium Magnesium Total Bilirubin AST ALT Alkaline Phosphatase Total Protein 5.0 L Albumin 10/12/24 10/12/24 10/12/24 17:14 19:52 20:42 WBC RBC Hgb Hct MCV MCH MCHC RDW Plt Count MPV Sodium 128 L Potassium Chloride Carbon Dioxide Anion Gap BUN Creatinine Estim Creat Clear Calc Estimated GFR Glucose POC Capillary Glucose 212 H 286 H Calcium Magnesium Total Bilirubin AST ALT Alkaline Phosphatase Total Protein Albumin 10/13/24 10/13/24 10/13/24 04:37 07:25 11:34 WBC 9.1 RBC 3.83 L Hgb 10.4 L Hct 31.5 L MCV 82.2 MCH 27.2 MCHC 33.0 RDW 13.4 Plt Count 336 MPV 9.0 Sodium 132 L Potassium 2.9 L Chloride 100 Carbon Dioxide 27 Anion Gap 5 BUN 10 Creatinine 0.61 L Estim Creat Clear Calc 111 Estimated GFR > 60 Glucose 183 H POC Capillary Glucose 174 H 256 H Calcium 7.2 L Magnesium 2.2 Total Bilirubin 0.4 AST 112 H ALT 69 H Alkaline Phosphatase 197 H Total Protein 6.0 L Albumin 2.5 L
[2024-10-13 12:27] LABS: Osmolality, Urine 536 mOsm/kg (50-1200)
--- NOTE | 2024-10-13 12:51 | P.PNIM_ITS ---
Progress Note: A&P Assessment and Plan (1) Abscess: Code(s): L02.91 - Cutaneous abscess, unspecified Status: Acute Assessment and Plan: Sepsis secondary to scalp abscess I&D in ED Fluid bolus Rocephin and vancomycin Repeat lactic Blood cultures pending Wound culture pending (2) DKA (diabetic ketoacidosis): Code(s): E11.10 - Type 2 diabetes mellitus with ketoacidosis without coma Status: Acute Assessment and Plan: BMP q.4 NPO Insulin drip per protocol Bolus 3 L fluid for dehydration (3) Acute hyponatremia: Code(s): E87.1 - Hypo-osmolality and hyponatremia Status: Acute Assessment and Plan: Slowly improving with IV hydration BMP Q 4 (4) Type 2 diabetes mellitus with hyperglycemia: Code(s): E11.65 - Type 2 diabetes mellitus with hyperglycemia Status: Acute Assessment and Plan: 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 (5) Coronary artery disease: Code(s): I25.10 - Atherosclerotic heart disease of [place] coronary artery without angina pectoris Status: Acute (6) Essential (primary) hypertension: Code(s): I10 - Essential (primary) hypertension Status: Acute Assessment and Plan: Hold home antihypertensive meds (7) Mixed hyperlipidemia: Code(s): E78.2 - Mixed hyperlipidemia Status: Acute (8) Sepsis: Code(s): A41.9 - Sepsis, unspecified organism Status: Acute (9) Tachycardia: Code(s): R00.0 - Tachycardia, unspecified Status: Acute Assessment and Plan: Continue home metoprolol Plan patient with history of diabetes presented with DKA was initially admitted into ICU was treated with iv insulin and his GAP closed and patient was transferred out of ICU, patient also presented with 2 abscess on occipital area, one of the abscess was I&D in the ER, Patient was seen by surgery service and recommended further I&D which scheduled for tomorrow at bedside as patient received Lovenox today, patient has uncontrolled diabetes he presented with A1c of 12, he was seen by PMD in January 2024 and his A1c was 7, patient stats in winter has not been able to do his regular exercise and diet control, and feels very tired and weak, patient has hyponatremia most likely dehydration patient is being gently hydrated, will consult chute worker for further recommendation, also patient had I&D of his 2nd abscess on 10/11, wound culture is growing Staph aureus discussed with clinical pharmacist will continue ceftriaxone and monitor, patient has hyponatremia most likely secondary to dehydration patient is gently hydrated and his sodium is trending up, also on 10/12 discussed with the leather dresser will adjust insulin and monitor blood sugar, today patient states is feeling much better compared to when he arrived, his repeat blood culture is also again growing Staph aureus, patient is being treated with ceftriaxone 2 g q.day, will have PT/OT evaluate the patient. patient will benefit going to rehab. Subjective Date/time seen: 10/13/24 12:51 Interval history: Scalp abscess Narrative: 49-year-old male with past medical history of CABG x3, diabetes type 2, hyperlipidemia, CAD and hypertension presents the hospital with scalp abscess. Patient states that about a week ago he noticed he had abscesses on the back of his head. He states that he did not do anything about it in less than laid around his house and slept. Patient complains of fever and chills, nausea vomiting, and decreased oral intake. His lab work shows leukocytosis at 15.8, hyponatremia of 119, chloride of 79, carbon dioxide 15 anion gap of 25, glucose of 543, lactic acid 3.0, magnesium 2.4, C-reactive protein 32.1, beta hydroxybutyrate of 4.05. Urine shows 3+ glucose 3+ ketones negative leukocyte esterase negative nitrate. Head CT and blood cultures pending. EKG shows sinus tachycardia with QTC of 557. Patient had T-max of 102.4?, heart rate 141, respirations 28 and hypertensive 155/98. In the ED he received 15 units of regular IV insulin followed by insulin drip vancomycin, Rocephin, and I&D of abscess. patient with history of diabetes presented with DKA was initially admitted into ICU was treated with iv insulin and his GAP closed and patient was transferred out of ICU, patient also presented with 2 abscess on occipital area, one of the abscess was I&D in the ER, Patient was seen by surgery service and recommended further I&D which scheduled for tomorrow at bedside as patient received Lovenox today, patient has uncontrolled diabetes he presented with A1c of 12, he was seen by PMD in January 2024 and his A1c was 7, patient stats in winter has not been able to do his regular exercise and diet control, and feels very tired and weak, patient has hyponatremia most likely dehydration patient is being gently hydrated, will consult chute worker for further recommendation, also patient had I&D of his 2nd abscess on 10/11, wound culture is growing Staph aureus discussed with clinical pharmacist will continue ceftriaxone and monitor, patient has hyponatremia most likely secondary to dehydration patient is gently hydrated and his sodium is trending up, also on 10/12 discussed with the leather dresser will adjust insulin and monitor blood sugar, today patient states is feeling much better compared to when he arrived, his repeat blood culture is also again growing Staph aureus, patient is being treated with ceftriaxone 2 g q.day, will have PT/OT evaluate the patient. patient will benefit going to rehab. Review of Systems Review of Systems: 12 systems were reviewed and are negativ e except for as per HPI. All systems reviewed & are unremarkable except as noted in HPI and below ( HPI) Exam Narrative: Patient is comfortable, NAD HEENT: eyes are clear and none icteric LUNGS:CTA HEART: RR S1S2 ABD: BS+, Soft and nontender Lower extremities: no edema SKIN: nonjaundiced: occipital 2x abscesses no drainage. Neuro: grossly intact. Objective Data Vital Signs Vital Signs: Vital Signs - 24 hr 10/12/24 14:00 10/12/24 16:00 10/12/24 19:56 Temperature 36.4 C 37.9 C H Pulse Rate 107 H 106 H 120 H Respiratory Rate 20 18 Blood Pressure 125/72 123/66 Pulse Oximetry 95 95 Oxygen Delivery Fraction of Inspired Oxygen 10/12/24 20:00 10/12/24 20:00 10/12/24 20:35 Temperature Pulse Rate 120 H 120 H 120 H Respiratory Rate 18 Blood Pressure Pulse Oximetry 95 Oxygen Delivery Room Air Fraction of Inspired Oxygen 21 10/12/24 20:35 10/12/24 21:35 10/12/24 22:02 Temperature 38.8 C H 36.9 C 36.9 C Pulse Rate Respiratory Rate Blood Pressure Pulse Oximetry Oxygen Delivery Fraction of Inspired Oxygen 10/13/24 00:00 10/13/24 04:00 10/13/24 04:17 Temperature 36.7 C Pulse Rate 84 99 97 Respiratory Rate 16 Blood Pressure 137/83 Pulse Oximetry 98 Oxygen Delivery Fraction of Inspired Oxygen 10/13/24 08:00 10/13/24 08:24 Temperature Pulse Rate 104 H 100 Respiratory Rate Blood Pressure Pulse Oximetry Oxygen Delivery Fraction of Inspired Oxygen Intake/Output Intake/Output: Intake & Output 10/10/24 10/11/24 10/12/24 10/13/24 23:59 23:59 23:59 23:59 Intake Total 3936.9 2942 3304 630 Output Total 1500 2000 3875 350 Balance 2436.9 874 -625 280 Meds/Results Medications: Active Medications Generic Name Dose Route Start Last Admin Trade Name Freq PRN Reason Stop Dose Admin Acetaminophen 650 mg 10/09/24 20:05 10/12/24 20:35 Acetaminophen 325 Mg Tablet PO 650 mg Q4H PRN Administration Mild Pain (1-3) or Fever Aspirin 81 mg 10/10/24 09:00 10/13/24 08:24 Aspirin 81 Mg Enteric Tablet PO 81 mg DAILY RUBY Administration Atorvastatin Calcium 40 mg 10/10/24 09:00 10/13/24 08:25 Atorvastatin 40 Mg Tablet BY MOUTH 40 mg DAILY RUBY Administration Dextrose 12.5 gm 10/09/24 14:14 Dextrose 50% 25 Gm/50 Ml Syringe IV PUSH PRN PRN Hypoglycemia Protocol Enoxaparin Sodium 40 mg 10/10/24 09:00 10/10/24 08:47 Enoxaparin 40 Mg/0.4 Ml Syringe SUB-Q 40 mg DAILY RUBY Administration Glucagon 1 mg 10/09/24 14:14 Glucagon For Inj 1 Mg Vial IM PRN PRN Hypoglycemia Protocol Glucose 15 gm 10/09/24 14:14 Glucose Oral Gel 15 Gm Of Glucse In 37.5 Gm Tube PO PRN PRN Hypoglycemia Protocol Dextrose 1,000 mls @ 100 mls/hr 10/09/24 14:14 Dextrose 5% 1,000 Ml IVPB PRN PRN Hypoglycemia Protocol Sodium Chloride 1,000 mls @ 75 mls/hr 10/11/24 03:25 10/13/24 03:51 Normal Saline Iv IV CONT 75 mls/hr .[id number] RUBY Administration Ceftriaxone Sodium 2 gm in 100 mls @ 200 mls/hr 10/12/24 09:00 10/13/24 08:53 Rocephin 2 Gm/Ns 100 Ml IVPB Infused DAILY RUBY Infusion Insulin Aspart 3 - 6 units 10/10/24 08:00 10/13/24 12:38 Insulin Aspart (*Bkc) 100 Units/Ml SUB-Q 4 units TIDWM RUBY Administration Protocol Insulin Aspart 1 - 3 units 10/10/24 21:00 10/12/24 20:36 Insulin Aspart (*Bkc) 100 Units/Ml SUB-Q 2 units HS [facility] Administration Protocol Insulin Aspart 5 units 10/12/24 17:00 10/13/24 12:38 Insulin Aspart (*Bkc) 100 Units/Ml SUB-Q 5 units TIDWM RUBY Administration Insulin Glargine 25 units 10/12/24 21:00 10/12/24 20:36 Insulin Glargine (*Bkc) 100 Units/Ml SUB-Q 25 units HS [facility] Administration Melatonin 3 mg 10/10/24 21:00 10/12/24 20:35 Melatonin 3 Mg Tablet PO 3 mg HS [facility] Administration Metoprolol Tartrate 25 mg 10/09/24 21:05 10/13/24 08:24 Metoprolol Tartrate 25 Mg Tablet PO 25 mg Q12HR RUBY Administration Ramipril 5 mg 10/10/24 09:00 Ramipril 5 Mg Capsule BY MOUTH DAILY [facility] Radiology Results: ITS Impressions Head CT 10/09/24 14:57 IMPRESSION: No acute intracranial findings. Labs Labs: Laboratory Results - last 24 hr 10/11/24 10/12/24 10/12/24 12:28 02:56 16:43 WBC RBC Hgb Hct MCV MCH MCHC RDW Plt Count MPV Sodium Potassium 2.8 L* Chloride Carbon Dioxide Anion Gap BUN Creatinine Estim Creat Clear Calc Estimated GFR Glucose POC Capillary Glucose Serum Osmolality 278 Calcium Magnesium Total Bilirubin AST ALT Alkaline Phosphatase Total Protein 5.0 L Albumin Urine Osmolality 536 10/12/24 10/12/24 10/12/24 17:14 19:52 20:42 WBC RBC Hgb Hct MCV MCH MCHC RDW Plt Count MPV Sodium 128 L Potassium Chloride Carbon Dioxide Anion Gap BUN Creatinine Estim Creat Clear Calc Estimated GFR Glucose POC Capillary Glucose 212 H 286 H Serum Osmolality Calcium Magnesium Total Bilirubin AST ALT Alkaline Phosphatase Total Protein Albumin Urine Osmolality 10/13/24 10/13/24 10/13/24 04:37 07:25 11:34 WBC 9.1 RBC 3.83 L Hgb 10.4 L Hct 31.5 L MCV 82.2 MCH 27.2 MCHC 33.0 RDW 13.4 Plt Count 336 MPV 9.0 Sodium 132 L Potassium 2.9 L Chloride 100 Carbon Dioxide 27 Anion Gap 5 BUN 10 Creatinine 0.61 L Estim Creat Clear Calc 111 Estimated GFR > 60 Glucose 183 H POC Capillary Glucose 174 H 256 H Serum Osmolality Calcium 7.2 L Magnesium 2.2 Total Bilirubin 0.4 AST 112 H ALT 69 H Alkaline Phosphatase 197 H Total Protein 6.0 L Albumin 2.5 L Urine Osmolality Quality VTE Prophylaxis VTE prophylaxis: mechanical ordered and pharmacologic ordered
--- NOTE | 2024-10-13 12:59 | P.PNNP_ITS ---
Progress Note: A&P Assessment and Plan (1) Hyponatremia: Code(s): E87.1 - Hypo-osmolality and hyponatremia Status: Acute Assessment and Plan: * slow improvement noted at this time * sodium 131mmol/L approximately six months ago * however, his blood sugar was 471 at that time -- corrected sodium would be ~ 137 - 140mmol/L * evaluation to date noted: * TSH okay * cortisol in range * urine sodium low indicative of prerenal factors * serum/urine osmolality pending * SPEP/UPEP pending * CT of head negative * refused chest x-ray * no culptrit medications (i.e. thiazide diuretics, SSRIs, narcotics...etc) * improvement in sodium noted with gentle IVFs * goal of therapy is a rate of change of 6 - 8mmol/L in 24 hours (this has been achieved) * suspect due to volume depletion exacerbated by hyperglycemia/DKA * follow trend of repeat sodium levels (2) Bacteremia: Code(s): R78.81 - Bacteremia Status: Acute Assessment and Plan: * as noted by culture data: * 10/09 blood cultures (2/2) - Staphylococcus aureus * 10/11 blood cultures (2/2) - Staphylococcus aureus * follow repeat cultures * on antibiotics (3) DKA (diabetic ketoacidosis): Code(s): E11.10 - Type 2 diabetes mellitus with ketoacidosis without coma Status: Resolved Assessment and Plan: * as noted on admission * resolved with appropriate treatment (IVFs, insulin gtt...etc) * possibly triggered by infection (seen #2 and #4) (4) Scalp abscess: Code(s): L02.811 - Cutaneous abscess of head [any part, except face] Status: Acute Assessment and Plan: * presumed source of #2 * wound culture with Heavy growth of Staphylococcus aureus * General Surgery following: * status post I&D x 2 * continue packing dressing changes * local wound care * on IV antibiotics (5) Hypokalemia: Code(s): E87.6 - Hypokalemia Status: Acute Assessment and Plan: * noted on 10/12 labs * replacement ongoing * magnesium okay * follow trend (6) Anemia: Code(s): D64.9 - Anemia, unspecified Status: Acute Assessment and Plan: * noted downward trend since admission * possibly related to hemoconcentration with admission volume depletion * follow trend of H/H (7) Essential (primary) hypertension: Code(s): I10 - Essential (primary) hypertension Status: Chronic Assessment and Plan: * reasonable control * follow trend of hemodynamics (8) Type 2 diabetes mellitus with hyperglycemia: Code(s): E11.65 - Type 2 diabetes mellitus with hyperglycemia Status: Chronic Assessment and Plan: * poor control at baseline * HgbA1c 12.0... * admitted with DKA (see #3) * follow accu-cheks * glycemic control per hospitalist Will continue to follow. L Subjective Date/time seen: 10/13/24 12:59 Interval history: Follow-up for acute hyponatremia. Sodium appears to be slowly improving with gentle IVF hydration; still with noted issues related to hypokalemia and getting supplementation; no other acute complaints voiced; no apparent distress noted at the time of my visit; refused chest x-ray today. Exam 2 Narrative: General: middle aged WD/WN male in NAD Heart: normal S1 and S2; no rub Lungs: clear to auscultation Abdomen: soft, nontender, nondistended, positive bowel sounds Extremities: no cyanosis or clubbing; no edema Skin: warm and dry Objective Data Vital Signs Vital Signs: Vital Signs Temp Pulse Resp BP Pulse Ox O2 Del Method FiO2 10/13/24 08:24 100 10/13/24 08:00 104 H 10/13/24 04:17 98.0 F 97 16 137/83 98 10/13/24 04:00 99 10/13/24 00:00 84 10/12/24 22:02 98.4 F 10/12/24 21:35 98.4 F 10/12/24 20:35 102 F H 10/12/24 20:35 120 H 10/12/24 20:00 120 H 10/12/24 20:00 120 H 18 95 Room Air 21 10/12/24 19:56 100.2 F H 120 H 18 123/66 95 10/12/24 16:00 106 H 10/12/24 14:00 97.6 F 107 H 20 125/72 95 Intake/Output Intake/Output: Intake & Output 10/10/24 10/11/24 10/12/24 10/13/24 23:59 23:59 23:59 23:59 Intake Total 3936.9 3222 3304 630 Output Total 1500 1999 3275 350 Balance 2436.9 704 -145 280 Meds/Results Medications: Active Medications Generic Name Dose Route Start Last Admin Trade Name Freq PRN Reason Stop Dose Admin Acetaminophen 650 mg 10/09/24 20:05 10/12/24 20:35 Acetaminophen 325 Mg Tablet PO 650 mg Q4H PRN Administration Mild Pain (1-3) or Fever Aspirin 81 mg 10/10/24 09:00 10/13/24 08:24 Aspirin 81 Mg Enteric Tablet PO 81 mg DAILY RUBY Administration Atorvastatin Calcium 40 mg 10/10/24 09:00 10/13/24 08:25 Atorvastatin 40 Mg Tablet BY MOUTH 40 mg DAILY RUBY Administration Dextrose 12.5 gm 10/09/24 14:14 Dextrose 50% 25 Gm/50 Ml Syringe IV PUSH PRN PRN Hypoglycemia Protocol Enoxaparin Sodium 40 mg 10/10/24 09:00 10/10/24 08:47 Enoxaparin 40 Mg/0.4 Ml Syringe SUB-Q 40 mg DAILY RUBY Administration Glucagon 1 mg 10/09/24 14:14 Glucagon For Inj 1 Mg Vial IM PRN PRN Hypoglycemia Protocol Glucose 15 gm 10/09/24 14:14 Glucose Oral Gel 15 Gm Of Glucse In 37.5 Gm Tube PO PRN PRN Hypoglycemia Protocol Dextrose 1,000 mls @ 100 mls/hr 10/09/24 14:14 Dextrose 5% 1,000 Ml IVPB PRN PRN Hypoglycemia Protocol Sodium Chloride 1,000 mls @ 75 mls/hr 10/11/24 03:25 10/13/24 03:51 Normal Saline Iv IV CONT 75 mls/hr .[id number] RUBY Administration Ceftriaxone Sodium 2 gm in 100 mls @ 200 mls/hr 10/12/24 09:00 10/13/24 08:53 Rocephin 2 Gm/Ns 100 Ml IVPB Infused DAILY RUBY Infusion Insulin Aspart 3 - 6 units 10/10/24 08:00 10/13/24 12:38 Insulin Aspart (*Bkc) 100 Units/Ml SUB-Q 4 units TIDWM RUBY Administration Protocol Insulin Aspart 1 - 3 units 10/10/24 21:00 10/12/24 20:36 Insulin Aspart (*Bkc) 100 Units/Ml SUB-Q 2 units HS RUBY Administration Protocol Insulin Aspart 5 units 10/12/24 17:00 10/13/24 12:38 Insulin Aspart (*Bkc) 100 Units/Ml SUB-Q 5 units TIDWM RUBY Administration Insulin Glargine 25 units 10/12/24 21:00 10/12/24 20:36 Insulin Glargine (*Bkc) 100 Units/Ml SUB-Q 25 units HS [facility] Administration Melatonin 3 mg 10/10/24 21:00 10/12/24 20:35 Melatonin 3 Mg Tablet PO 3 mg HS [facility] Administration Metoprolol Tartrate 25 mg 10/09/24 21:05 10/13/24 08:24 Metoprolol Tartrate 25 Mg Tablet PO 25 mg Q12HR [facility] Administration Ramipril 5 mg 10/10/24 09:00 Ramipril 5 Mg Capsule BY MOUTH DAILY [facility] Radiology Results: ITS Impressions Head CT 10/09/24 14:57 IMPRESSION: No acute intracranial findings. Labs Labs: Laboratory Tests 10/13/24 04:37 10/13/24 04:37 Calcium 7.2 L Magnesium 2.2 Total Bilirubin 0.4 AST 112 H ALT 69 H Alkaline Phosphatase 197 H Total Protein 6.0 L Albumin 2.5 L Microbiology 10/11/24 15:47 Blood Blood Culture - Final Staphylococcus aureus 10/11/24 15:47 Blood Blood Culture - Final Staphylococcus aureus
[2024-10-13 16:51] LABS: Glucose Point of Care 159 mg/dl (65-105)
[2024-10-13] MEDS: POTASSIUM BICARBONATE 25 MEQ TABEF 50 MEQ PO ×2 (17:36→20:57)
[2024-10-13 20:51] LABS: Glucose Point of Care 149 mg/dl (65-105)
[2024-10-13] MEDS: ACETAMINOPHEN 325 MG TABLET 650 MG PO (20:55)
[2024-10-13] MEDS: MELATONIN 3 MG TABLET PO (20:56)
[2024-10-13] MEDS: INSULIN GLARGINE (*BKC) 100 UNITS/ML 25 UNITS SUB-Q (20:57)
[2024-10-14] VITALS (11 sets, daily range): BP systolic 136–150; BP diastolic 85–88; PULSE 80–113; RESP 16–20; TEMP 36.9–37.2; O2SAT 92–94
--- NOTE | 2024-10-14 | ECHO_ITS ---
Patient Info Name: Guzman Gandara Age: 49 years : 1975 Gender: Male Ht: 66 in Wt: 183 lbs BSA: 1.99 m2 HR: 102 bpm BP: 150 / 85 mmHg Heart Rhythm: Sinus Rhythm Technical Quality: Good Exam Date: 10/14/2024 4:18 PM Patient Status: I Admit Date: 10/10/2024 Exam Type: CA echo doppler color flow Complete two-dimensional, color flow and Doppler transthoracic echocardiogram is performed. Staff Referring Physician: Katie Cruz Windlace Machine Operator: Galina Castellanos Attending Provider: Hipolito Crawford Summary 1. Complete two-dimensional, color flow and Doppler transthoracic echocardiogram is performed. 2. Left ventricular chamber dimension is normal. 3. Left ventricular systolic function is normal, estimated at 55-60. 4. There is mildly increased left ventricular wall thickness. 5. The left ventricular diastolic function is normal. 6. The mid anteroseptal is hypokinetic. 7. Left atrial chamber dimension is mildly enlarged. 8. There is mild mitral valve regurgitation. 9. There is mild tricuspid valve regurgitation. 10. There is mild pulmonic regurgitation. 11. There is mild aortic valve calcification. Left Ventricle Left ventricular chamber dimension is normal. Left ventricular systolic function is normal, estimated at 55-60. There is mildly increased left ventricular wall thickness. The left ventricular diastolic function is normal. The mid anteroseptal is hypokinetic. All other toribio appear normal. Right Ventricle Right ventricular chamber dimension is normal. Right ventricular systolic function is normal. Left Atria Left atrial chamber dimension is mildly enlarged. Right Atria Right atrial chamber dimension is normal. Atrial Septum Intact interatrial septum visualized by color flow imaging. Aortic Valve The aortic valve is trileaflet. There is no aortic valve stenosis. There is trace aortic valve regurgitation. There is mild aortic valve calcification. Pulmonic Valve The pulmonic valve is normal. There is no pulmonic valve stenosis. There is mild pulmonic regurgitation. Mitral Valve The mitral valve has normal leaflets. There is no mitral valve stenosis. There is mild mitral valve regurgitation. Tricuspid Valve The tricuspid valve leaflets are normal. There is no significant tricuspid valve stenosis. There is mild tricuspid valve regurgitation. No pulmonary hypertension, estimated pulmonary arterial systolic pressure is 21 mmHg. Pericardium/Pleural The pericardium appears normal. There is no pericardial effusion. Inferior Vena Cava Normal inferior vena cava with >50% collapse upon inspiration consistent with normal right atrial pressure, 5 mmHg. Aorta The aortic root size at the sinus of Valsalva is normal. Left Ventricular Outflow Tract Name Value Normal LVOT 2D LVOT Diameter 2.1 cm LVOT Doppler LVOT Peak Velocity 120 cm/s LVOT Peak Gradient 6 mmHg LVOT Mean Gradient 3 mmHg LVOT VTI 21 cm LVOT VTI/AV VTI Ratio 0.9 LVOT Stroke Volume 70 ml LVOT CO 6.4 l/min LVOT CI 3.2 l/min/m2 Pulmonic Valve Name Value Normal RVOT Doppler RVOT Peak Velocity 70 cm/s RVOT Peak Gradient 2 mmHg PV Doppler PV Peak Velocity 122 cm/s PV Peak Gradient 6 mmHg Mitral Valve Name Value Normal MV Diastolic Function MV E Peak Velocity 12 cm/s MV A Peak Velocity 12 cm/s MV E/A 1.0 MV Decel Time (PW) 136 ms MV Annular TDI MV E/e' (Septal) 8.5 MV E/e' (Lateral) 6.3 MV E/e' (Average) 7.4 Tricuspid Valve Name Value Normal TV Regurgitation Doppler TR Peak Velocity 200 cm/s TR Peak Gradient 16 mmHg Estimated PAP/RSVP RA Pressure 5 mmHg <=5 PA Systolic Pressure 21 mmHg <36 RV Systolic Pressure 21 mmHg <36 TV Annular TDI TV Lateral Natacha s' Velocity 11.5 cm/s >=9.5 Aortic Valve Name Value Normal AV Doppler AV Peak Velocity 136 cm/s AV Peak Gradient 7 mmHg AV Mean Gradient 4 mmHg AV VTI 23 cm AV Area (Cont Eq VTI) 3.0 cm2 >=3.0 AV Area (Cont Eq Vince) 3.0 cm2 AV DI (Vince) 0.88 AV Regurgitation 2D LVOT Area 3.4 cm2 Ventricles Name Value Normal LV Dimensions 2D/MM IVS Diastolic Thickness (2D) 1.0 cm 0.6-1.0 LVID Diastole (2D) 5.2 cm 4.2-5.8 LVIW Diastolic Thickness (2D) 0.9 cm 0.6-1.0 LVID Systole (2D) 3.3 cm 2.5-4.0 LVOT Diameter 2.1 cm LV Mass (2D Cubed) 191.16 g 88.00-224.00 LV Mass Index (2D Cubed) 96 g/m2 49-115 Relative Wall Thickness (2D) 0.36 <=0.42 LV Fractional Shortening/Ejection Fraction 2D/MM LV Fractional Shortening (2D) 36 % 25-43 LV EF (2D Teichholz) 65 % LV Diastolic Volume (4C MOD) 185 ml LV EF (4C MOD) 70 % LV Diastolic Volume (2C MOD) 158 ml LV EF (2C MOD) 54 % LV Diastolic Volume (BP MOD) 174 ml 62-150 LV Diastolic Volume Index (BP MOD) 87 ml/m2 34-74 LV Systolic Volume (BP MOD) 81 ml 21-61 LV Systolic Volume Index (BP MOD) 41 ml/m2 11-31 LV EF (BP MOD) 53 % 52-72 LV Diastolic Length (4C) 10.0 cm LV Systolic Length (4C) 7.6 cm LV Stroke Volume (4C MOD) 129 ml Atria Name Value Normal LA Dimensions LA Volume (4C A-L) 82 ml LA Volume (BP A-L) 83 ml RA Dimensions RA Systolic Major [place] Length (4C) 5.8 cm 2.1-2.7 RA Area (4C) 18.4 cm2 <=18.0 Wall Motion Scoring Wall Motion Scoring Index: 1.06 Report Signatures
[2024-10-14 05:28] LABS: Hematocrit 32.2 % (42.0-52.0); Hemoglobin 10.8 g/dL (14.0-18.0); Mean Corpuscular HGB Conc 33.5 g/dl (32-36); Mean Corpuscular Hemoglobin 27.6 pg (26-34); Mean Corpuscular Volume 82.4 fl (80-100); Mean Platelet Volume 8.7 fl (7.4-10.4); Platelet Count Result 458 k/mm3 (150-375); Red Blood Count 3.91 M/mm3 (4.6-6.20); Red Cell Distribution Width 13.5 % (11.5-14.5); White Blood Count 9.6 K/mm3 (4.5-10.0)
[2024-10-14 05:49] LABS: Alanine Aminotransferase 78 U/L (6-50); Albumin Level 2.7 g/dL (3.5-5.1); Alkaline Phosphatase 220 U/L (38-126); Anion Gap 3 mmol/L (4-12); Aspartate Amino Transferase 98 U/L (17-59); Bilirubin,Total 0.5 mg/dL (0.2-1.3); Blood Urea Nitrogen 8 mg/dL (9-20); Calcium 7.2 mg/dL (8.4-10.2); Carbon Dioxide 30 mmol/L (22-30); Chloride 100 mmol/L (98-107); Estimated CRCL calculation 108 ml/min; Estimated Glomerular Filt Rate > 60; Glucose 102 mg/dL (65-110); Magnesium 2.2 mg/dL (1.6-2.3); Potassium 3.5 mmol/L (3.4-5.0); Sodium 133 mmol/L (137-145)
[2024-10-14] MEDS: SODIUM CHLORIDE 0.9% IV 1,000 ML 75 ML IV CONT ×2 (07:18→22:04)
[2024-10-14 07:20] LABS: Glucose Point of Care 105 mg/dl (65-105)
[2024-10-14] MEDS: cefTRIAXone 2 GM/NS 100 ML 2 GM/100 ML BAG IVPB (08:38)
[2024-10-14] MEDS: ATORVASTATIN 40 MG TABLET BY MOUTH (08:39)
[2024-10-14] MEDS: ASPIRIN 81 MG ENTERIC TABLET PO (08:39)
[2024-10-14] MEDS: METOPROLOL TARTRATE 25 MG TABLET PO ×2 (08:39→21:07)
[2024-10-14] MEDS: INSULIN ASPART (*BKC) 100 UNITS/ML SUB-Q ×2 (08:40→12:20)
[2024-10-14 10:18] LABS: Alpha 1 Globulin 0.7 g/dL (0.2-0.3); Alpha 2 Globulin 0.9 g/dL (0.5-0.9); Beta 1 Globulin 0.3 g/dL (0.4-0.6); Gamma Globulin 0.7 g/dL (0.8-1.7)
[2024-10-14 11:37] LABS: Glucose Point of Care 170 mg/dl (65-105)
--- NOTE | 2024-10-14 11:38 | P.PNNP_ITS ---
Progress Note: A&P Assessment and Plan (1) Hyponatremia: Code(s): E87.1 - Hypo-osmolality and hyponatremia Status: Acute Assessment and Plan: * slow and ongoing improvement noted at this time * sodium 131mmol/L approximately six months ago * however, his blood sugar was 471 at that time -- corrected sodium would be ~ 137 - 140mmol/L * evaluation to date noted: * TSH okay * cortisol in range * urine sodium low indicative of prerenal factors * serum/urine osmolality pending * SPEP negative, UPEP pending * CT of head negative * refused chest x-ray * no culptrit medications (i.e. thiazide diuretics, SSRIs, narcotics...etc) * goal of therapy is a rate of change of 6 - 8mmol/L in 24 hours (this was achieved) * suspect due to volume depletion exacerbated by hyperglycemia/DKA * follow trend of repeat sodium levels (2) Bacteremia: Code(s): R78.81 - Bacteremia Status: Acute Assessment and Plan: * as noted by culture data: * 10/09 blood cultures (2/2) - Staphylococcus aureus * 10/11 blood cultures (2/2) - Staphylococcus aureus * follow repeat cultures * on antibiotics (3) DKA (diabetic ketoacidosis): Code(s): E11.10 - Type 2 diabetes mellitus with ketoacidosis without coma Status: Resolved Assessment and Plan: * as noted on admission * resolved with appropriate treatment (IVFs, insulin gtt...etc) * possibly triggered by infection (seen #2 and #4) (4) Scalp abscess: Code(s): L02.811 - Cutaneous abscess of head [any part, except face] Status: Acute Assessment and Plan: * presumed source of #2 * wound culture with Heavy growth of Staphylococcus aureus * General Surgery following: * status post I&D x 2 * continue packing dressing changes * local wound care * on IV antibiotics (5) Hypokalemia: Code(s): E87.6 - Hypokalemia Status: Acute Assessment and Plan: * noted on 10/12 labs * replacement ongoing * magnesium okay * follow trend (6) Anemia: Code(s): D64.9 - Anemia, unspecified Status: Acute Assessment and Plan: * noted downward trend since admission * possibly related to hemoconcentration with admission volume depletion * follow trend of H/H (7) Essential (primary) hypertension: Code(s): I10 - Essential (primary) hypertension Status: Chronic Assessment and Plan: * reasonable control * follow trend of hemodynamics (8) Type 2 diabetes mellitus with hyperglycemia: Code(s): E11.65 - Type 2 diabetes mellitus with hyperglycemia Status: Chronic Assessment and Plan: * poor control at baseline * HgbA1c 12.0... * admitted with DKA (see #3) * follow accu-cheks * glycemic control per hospitalist Will continue to follow. L Subjective Date/time seen: 10/14/24 11:38 Interval history: Follow-up for acute hyponatremia. Sodium continues to slowly improve with current therapy/interventions; no apparent distress noted at the time of my visit; he states that he feels reasonably well; remains on antibiotic therapy for bacteremia; no other issues/events overnight or earlier this morning. Exam 2 Narrative: General: middle aged WD/WN male in NAD Heart: normal S1 and S2; no rub Lungs: clear to auscultation Abdomen: soft, nontender, nondistended, positive bowel sounds Extremities: no cyanosis or clubbing; no edema Skin: warm and intact Objective Data Vital Signs Vital Signs: Vital Signs Temp Pulse Resp BP Pulse Ox O2 Del Method FiO2 10/14/24 11:20 95 10/14/24 08:39 80 10/14/24 08:00 112 H 10/14/24 06:00 98.6 F 100 16 139/88 94 10/14/24 04:00 95 10/14/24 00:00 86 10/13/24 21:03 99.2 F 112 H 18 138/67 91 10/13/24 21:00 123 H 20 93 Room Air 21 10/13/24 20:56 80 10/13/24 20:00 115 H Intake/Output Intake/Output: Intake & Output 10/11/24 10/12/24 10/13/24 10/14/24 23:59 23:59 23:59 23:59 Intake Total 2942 3304 1545 980 Output Total 1999 7075 900 1500 Balance 942 -811 665 -941 Meds/Results Medications: Active Medications Generic Name Dose Route Start Last Admin Trade Name Freq PRN Reason Stop Dose Admin Acetaminophen 650 mg 10/09/24 20:05 10/13/24 20:55 Acetaminophen 325 Mg Tablet PO 650 mg Q4H PRN Administration Mild Pain (1-3) or Fever Aspirin 81 mg 10/10/24 09:00 10/14/24 08:39 Aspirin 81 Mg Enteric Tablet PO 81 mg DAILY RUBY Administration Atorvastatin Calcium 40 mg 10/10/24 09:00 10/14/24 08:39 Atorvastatin 40 Mg Tablet BY MOUTH 40 mg DAILY RUBY Administration Dextrose 12.5 gm 10/09/24 14:14 Dextrose 50% 25 Gm/50 Ml Syringe IV PUSH PRN PRN Hypoglycemia Protocol Enoxaparin Sodium 40 mg 10/10/24 09:00 10/10/24 08:47 Enoxaparin 40 Mg/0.4 Ml Syringe SUB-Q 40 mg DAILY RUBY Administration Glucagon 1 mg 10/09/24 14:14 Glucagon For Inj 1 Mg Vial IM PRN PRN Hypoglycemia Protocol Glucose 15 gm 10/09/24 14:14 Glucose Oral Gel 15 Gm Of Glucse In 37.5 Gm Tube PO PRN PRN Hypoglycemia Protocol Dextrose 1,000 mls @ 100 mls/hr 10/09/24 14:14 Dextrose 5% 1,000 Ml IVPB PRN PRN Hypoglycemia Protocol Sodium Chloride 1,000 mls @ 75 mls/hr 10/11/24 03:25 10/14/24 07:18 Normal Saline Iv IV CONT 75 mls/hr .[id number] RUBY Administration Cefazolin Sodium 2 gm in 50 mls @ 100 mls/hr 10/14/24 12:30 10/14/24 12:31 Ancef 2 Gm/D5w 50 Ml IVPB 100 mls/hr Q8HR RUBY Administration Insulin Aspart 3 - 6 units 10/10/24 08:00 10/14/24 12:18 Insulin Aspart (*Bkc) 100 Units/Ml SUB-Q Not Given TIDWM [facility] Protocol Insulin Aspart 1 - 3 units 10/10/24 21:00 10/13/24 20:50 Insulin Aspart (*Bkc) 100 Units/Ml SUB-Q Not Given HS RUBY Protocol Insulin Aspart 5 units 10/12/24 17:00 10/14/24 12:20 Insulin Aspart (*Bkc) 100 Units/Ml SUB-Q 5 units TIDWM [facility]BY Administration Insulin Glargine 25 units 10/12/24 21:00 10/13/24 20:57 Insulin Glargine (*Bkc) 100 Units/Ml SUB-Q 25 units HS RUBY Administration Melatonin 3 mg 10/10/24 21:00 10/13/24 20:56 Melatonin 3 Mg Tablet PO 3 mg HS RUBY Administration Metoprolol Tartrate 25 mg 10/09/24 21:05 10/14/24 08:39 Metoprolol Tartrate 25 Mg Tablet PO 25 mg Q12HR RUBY Administration Perflutren Lipid Microsphere 0 ml 10/14/24 13:11 Perflutren Lipid Microspheres 1.5 Ml Vial Diluted To 10 Ml Total Volume IV PUSH 10/17/24 13:12 ONCE PRN adequate visualization Protocol Ramipril 5 mg 10/10/24 09:00 Ramipril 5 Mg Capsule BY MOUTH DAILY [facility] Radiology Results: ITS Impressions Head CT 10/09/24 14:57 IMPRESSION: No acute intracranial findings. Labs Labs: Laboratory Tests 10/14/24 05:18 10/14/24 05:19 Calcium 7.2 L Magnesium 2.2 Total Bilirubin 0.5 AST 98 H ALT 78 H Alkaline Phosphatase 220 H Total Protein 6.0 L Albumin 2.7 L
--- NOTE | 2024-10-14 12:00 | PCNWS ---
Weekly nutritional screen. Patient is tolerating current Diabetic diet with adequate intake. No weight loss reported. No nutritional needs at this time.
[2024-10-14] MEDS: ceFAZolin 2 GM/D5W 50 ML 2 GM/50 ML BAG IVPB ×2 (12:31→21:07)
--- NOTE | 2024-10-14 15:29 | PM.IMPN ---
Progress Note: A&P Assessment and Plan (1) Abscess: Code(s): L02.91 - Cutaneous abscess, unspecified Status: Acute (2) DKA (diabetic ketoacidosis): Code(s): E11.10 - Type 2 diabetes mellitus with ketoacidosis without coma Status: Resolved (3) Acute hyponatremia: Code(s): E87.1 - Hypo-osmolality and hyponatremia Status: Acute (4) Type 2 diabetes mellitus with hyperglycemia: Code(s): E11.65 - Type 2 diabetes mellitus with hyperglycemia Status: Chronic (5) Coronary artery disease: Code(s): I25.10 - Atherosclerotic heart disease of [place] coronary artery without angina pectoris Status: Acute (6) Essential (primary) hypertension: Code(s): I10 - Essential (primary) hypertension Status: Chronic (7) Mixed hyperlipidemia: Code(s): E78.2 - Mixed hyperlipidemia Status: Acute (8) Sepsis: Code(s): A41.9 - Sepsis, unspecified organism Status: Acute (9) Tachycardia: Code(s): R00.0 - Tachycardia, unspecified Status: Acute Plan patient with history of diabetes presented with DKA was initially admitted into ICU was treated with iv insulin and his GAP closed and patient was transferred out of ICU, patient also presented with 2 abscess on occipital area, one of the abscess was I&D in the ER, Patient was seen by surgery service and recommended further I&D which was performed on 10/11/2024. Patient has uncontrolled diabetes he presented with A1c of 12, he was seen by PMD in January 2024 and his A1c was 7, patient stats in winter has not been able to do his regular exercise and diet control, and feels very tired and weak, patient has hyponatremia severe with level 119 on admission. Most likely dehydration patient is being gently hydrated, nephrology consulted and following. Sodium level has continued to improved since then. Wound culture is growing Staph aureus which came back positive for MSSA. Type 2 diabetes uncontrolled A1c 12 suggested insulin regimen at discharge. Patient on combination of dapagliflozin and metformin prior to this. Bacteremia with MSSA. Blood culture from 10/11/2024 still positive. Antibiotics changed to Ancef. Since persistent will get echocardiogram Coronary artery disease status post CABG DVT prophylaxis resume Lovenox Subjective Date/time seen: 10/14/24 15:29 Interval history: No overnight events. Patient states he is feeling better. Upset that he did not get to go home yet. No shortness of breath or chest pain. Remains afebrile. Last fever spike 10/12/2024 Review of Systems Review of Systems: All systems reviewed & are unremarkable except as noted in HPI and below ( HPI) Exam Narrative: Patient is comfortable, NAD HEENT: eyes are clear and none icteric LUNGS:CTA HEART: RR S1S2 ABD: BS+, Soft and nontender Lower extremities: no edema SKIN: nonjaundiced: occipital 2x abscesses no drainage. Neuro: grossly intact. Objective Data Vital Signs Vital Signs: Vital Signs - 24 hr 10/13/24 16:00 10/13/24 20:00 10/13/24 20:56 Temperature Pulse Rate 98 115 H 80 Respiratory Rate Blood Pressure Pulse Oximetry Oxygen Delivery Fraction of Inspired Oxygen 10/13/24 21:00 10/13/24 21:03 10/14/24 00:00 Temperature 99.2 F Pulse Rate 123 H 112 H 86 Respiratory Rate 20 18 Blood Pressure 138/67 Pulse Oximetry 93 91 Oxygen Delivery Room Air Fraction of Inspired Oxygen 10/14/24 04:00 10/14/24 06:00 10/14/24 08:00 Temperature 98.6 F Pulse Rate 95 100 112 H Respiratory Rate 16 Blood Pressure 139/88 Pulse Oximetry 94 Oxygen Delivery Fraction of Inspired Oxygen 10/14/24 08:39 10/14/24 13:37 Temperature 98.4 F Pulse Rate 80 102 H Respiratory Rate 20 Blood Pressure 150/85 H Pulse Oximetry 92 Oxygen Delivery Fraction of Inspired Oxygen Intake/Output Intake/Output: Intake & Output 10/11/24 10/12/24 10/13/24 10/14/24 23:59 23:59 23:59 23:59 Intake Total 8612 3304 1545 980 Output Total 1999 7660 900 1500 Balance 942 -832 217 -468 Meds/Results Medications: Active Medications Generic Name Dose Route Start Last Admin Trade Name Freq PRN Reason Stop Dose Admin Acetaminophen 650 mg 10/09/24 20:05 10/13/24 20:55 Acetaminophen 325 Mg Tablet PO 650 mg Q4H PRN Administration Mild Pain (1-3) or Fever Aspirin 81 mg 10/10/24 09:00 10/14/24 08:39 Aspirin 81 Mg Enteric Tablet PO 81 mg DAILY RUBY Administration Atorvastatin Calcium 40 mg 10/10/24 09:00 10/14/24 08:39 Atorvastatin 40 Mg Tablet BY MOUTH 40 mg DAILY RUBY Administration Dextrose 12.5 gm 10/09/24 14:14 Dextrose 50% 25 Gm/50 Ml Syringe IV PUSH PRN PRN Hypoglycemia Protocol Enoxaparin Sodium 40 mg 10/10/24 09:00 10/10/24 08:47 Enoxaparin 40 Mg/0.4 Ml Syringe SUB-Q 40 mg DAILY RUBY Administration Glucagon 1 mg 10/09/24 14:14 Glucagon For Inj 1 Mg Vial IM PRN PRN Hypoglycemia Protocol Glucose 15 gm 10/09/24 14:14 Glucose Oral Gel 15 Gm Of Glucse In 37.5 Gm Tube PO PRN PRN Hypoglycemia Protocol Dextrose 1,000 mls @ 100 mls/hr 10/09/24 14:14 Dextrose 5% 1,000 Ml IVPB PRN PRN Hypoglycemia Protocol Sodium Chloride 1,000 mls @ 75 mls/hr 10/11/24 03:25 10/14/24 07:18 Normal Saline Iv IV CONT 75 mls/hr .[id number] RUBY Administration Cefazolin Sodium 2 gm in 50 mls @ 100 mls/hr 10/14/24 12:30 10/14/24 12:31 Ancef 2 Gm/D5w 50 Ml IVPB 100 mls/hr Q8HR RUBY Administration Insulin Aspart 3 - 6 units 10/10/24 08:00 10/14/24 12:18 Insulin Aspart (*Bkc) 100 Units/Ml SUB-Q Not Given TIDWM [facility]BY Protocol Insulin Aspart 1 - 3 units 10/10/24 21:00 10/13/24 20:50 Insulin Aspart (*Bkc) 100 Units/Ml SUB-Q Not Given HS RUBY Protocol Insulin Aspart 5 units 10/12/24 17:00 10/14/24 12:20 Insulin Aspart (*Bkc) 100 Units/Ml SUB-Q 5 units TIDWM RUBY Administration Insulin Glargine 25 units 10/12/24 21:00 10/13/24 20:57 Insulin Glargine (*Bkc) 100 Units/Ml SUB-Q 25 units HS RUBY Administration Melatonin 3 mg 10/10/24 21:00 10/13/24 20:56 Melatonin 3 Mg Tablet PO 3 mg HS RUBY Administration Metoprolol Tartrate 25 mg 10/09/24 21:05 10/14/24 08:39 Metoprolol Tartrate 25 Mg Tablet PO 25 mg Q12HR RUBY Administration Perflutren Lipid Microsphere 0 ml 10/14/24 13:11 Perflutren Lipid Microspheres 1.5 Ml Vial Diluted To 10 Ml Total Volume IV PUSH 10/17/24 13:12 ONCE PRN adequate visualization Protocol Ramipril 5 mg 10/10/24 09:00 Ramipril 5 Mg Capsule BY MOUTH DAILY [facility] Radiology Results: ITS Impressions Head CT 10/09/24 14:57 IMPRESSION: No acute intracranial findings. Labs Labs: Laboratory Results - last 24 hr 10/12/24 10/13/24 10/13/24 02:56 16:48 20:42 WBC RBC Hgb Hct MCV MCH MCHC RDW Plt Count MPV Sodium Potassium Chloride Carbon Dioxide Anion Gap BUN Creatinine Estim Creat Clear Calc Estimated GFR Glucose POC Capillary Glucose 159 H 149 H Calcium Magnesium Total Bilirubin AST ALT Alkaline Phosphatase Total Protein Albumin 2.0 L Tjldp-6-Osiwieyml 0.7 H Lkseg-5-Dbmuodlhj 0.9 Ynhw-6-Ysktzlcw 0.3 L Tdvj-7-Euzushcb 0.4 Gamma Globulins 0.7 L PEP Interpretation See note 10/14/24 10/14/24 10/14/24 05:18 05:19 07:18 WBC 9.6 RBC 3.91 L Hgb 10.8 L Hct 32.2 L MCV 82.4 MCH 27.6 MCHC 33.5 RDW 13.5 Plt Count 458 H MPV 8.7 Sodium 133 L Potassium 3.5 Chloride 100 Carbon Dioxide 30 Anion Gap 3 L BUN 8 L Creatinine 0.63 L Estim Creat Clear Calc 108 Estimated GFR > 60 Glucose 102 POC Capillary Glucose 105 Calcium 7.2 L Magnesium 2.2 Total Bilirubin 0.5 AST 98 H ALT 78 H Alkaline Phosphatase 220 H Total Protein 6.0 L Albumin 2.7 L Vlusr-9-Yyhxfepwi Cwpze-6-Sesyrcbgx Vahd-2-Nvxpiqjs Yjcm-8-Tyccxgwy Gamma Globulins PEP Interpretation 10/14/24 11:33 WBC RBC Hgb Hct MCV MCH MCHC RDW Plt Count MPV Sodium Potassium Chloride Carbon Dioxide Anion Gap BUN Creatinine Estim Creat Clear Calc Estimated GFR Glucose POC Capillary Glucose 170 H Calcium Magnesium Total Bilirubin AST ALT Alkaline Phosphatase Total Protein Albumin Dsiwe-8-Jfvaderth Eovtb-3-Qtonavgqt Vdky-0-Sstatydm Toqz-9-Xypncbdt Gamma Globulins PEP Interpretation
[2024-10-14 17:03] LABS: Glucose Point of Care 79 mg/dl (65-105)
[2024-10-14] MEDS: INSULIN GLARGINE (*BKC) 100 UNITS/ML 25 UNITS SUB-Q (21:08)
[2024-10-14] MEDS: MELATONIN 3 MG TABLET PO (21:08)
[2024-10-14 21:14] LABS: Glucose Point of Care 190 mg/dl (65-105)
[2024-10-15] VITALS (11 sets, daily range): BP systolic 142–160; BP diastolic 88–103; PULSE 90–109; RESP 16–20; TEMP 36.7–36.8; O2SAT 91–95
[2024-10-15 04:38] LABS: Hematocrit 29.6 % (42.0-52.0); Hemoglobin 9.8 g/dL (14.0-18.0); Mean Corpuscular HGB Conc 33.1 g/dl (32-36); Mean Corpuscular Hemoglobin 27.6 pg (26-34); Mean Corpuscular Volume 83.4 fl (80-100); Mean Platelet Volume 8.3 fl (7.4-10.4); Platelet Count Result 483 k/mm3 (150-375); Red Blood Count 3.55 M/mm3 (4.6-6.20); Red Cell Distribution Width 13.4 % (11.5-14.5); White Blood Count 9.6 K/mm3 (4.5-10.0)
[2024-10-15 04:51] LABS: Alanine Aminotransferase 57 U/L (6-50); Albumin Level 2.5 g/dL (3.5-5.1); Alkaline Phosphatase 209 U/L (38-126); Anion Gap 5 mmol/L (4-12); Aspartate Amino Transferase 60 U/L (17-59); Bilirubin,Total 0.3 mg/dL (0.2-1.3); Blood Urea Nitrogen 7 mg/dL (9-20); Calcium 7.2 mg/dL (8.4-10.2); Carbon Dioxide 26 mmol/L (22-30); Chloride 103 mmol/L (98-107); Estimated CRCL calculation 105 ml/min; Estimated Glomerular Filt Rate > 60; Glucose 127 mg/dL (65-110); Magnesium 2.2 mg/dL (1.6-2.3); Potassium 3.3 mmol/L (3.4-5.0); Sodium 134 mmol/L (137-145)
[2024-10-15] MEDS: ceFAZolin 2 GM/D5W 50 ML 2 GM/50 ML BAG IVPB ×3 (05:33→22:41)
[2024-10-15 08:17] LABS: Glucose Point of Care 127 mg/dl (65-105)
[2024-10-15] MEDS: INSULIN ASPART (*BKC) 100 UNITS/ML SUB-Q ×3 (08:53→17:38)
[2024-10-15] MEDS: ASPIRIN 81 MG ENTERIC TABLET PO (08:53)
[2024-10-15] MEDS: METOPROLOL TARTRATE 25 MG TABLET PO ×2 (08:53→21:26)
[2024-10-15] MEDS: POTASSIUM BICARBONATE 25 MEQ TABEF 50 MEQ PO ×2 (08:53→12:25)
[2024-10-15] MEDS: ATORVASTATIN 40 MG TABLET BY MOUTH (08:53)
--- NOTE | 2024-10-15 09:47 | P.PNNP_ITS ---
Progress Note: A&P Assessment and Plan (1) Hyponatremia: Code(s): E87.1 - Hypo-osmolality and hyponatremia Status: Acute Assessment and Plan: * slow and ongoing improvement noted at this time * sodium 131mmol/L approximately six months ago * however, his blood sugar was 471 at that time -- corrected sodium would be ~ 137 - 140mmol/L * evaluation to date noted: * TSH okay * cortisol in range * urine sodium low indicative of prerenal factors * serum/urine osmolality pending * SPEP negative, UPEP pending * CT of head negative * refused chest x-ray * no culptrit medications (i.e. thiazide diuretics, SSRIs, narcotics...etc) * sodium level is improving very gradually as desired. 121-125-132 and now 134 * suspect due to volume depletion exacerbated by hyperglycemia/DKA * on normal saline. No fluid restriction. * The patient is eating fine. He is drinking well. From the sodium standpoint it is okay to stop fluids and for him to go home but I know he has other issues so I will leave it up to Dr. Lawrence to stop the fluids if he does not need them from the DKA standpoint. * follow trend of repeat sodium levels (2) Bacteremia: Code(s): R78.81 - Bacteremia Status: Acute Assessment and Plan: * as noted by culture data: * 10/09 blood cultures (2/2) - Staphylococcus aureus * 10/11 blood cultures (2/2) - Staphylococcus aureus * Do we need to repeat cultures? * on cefazolin * white count is better and no fevers since 10/12 (3) DKA (diabetic ketoacidosis): Code(s): E11.10 - Type 2 diabetes mellitus with ketoacidosis without coma Status: Resolved Assessment and Plan: * as noted on admission * resolved with appropriate treatment (IVFs, insulin gtt...etc) * possibly triggered by infection (seen #2 and #4) * sugars are better and anion gap is normal (4) Scalp abscess: Code(s): L02.811 - Cutaneous abscess of head [any part, except face] Status: Acute Assessment and Plan: * presumed source of #2 * wound culture with Heavy growth of Staphylococcus aureus * General Surgery following: * status post I&D x 2 * continue packing dressing changes * local wound care * on IV antibiotics (5) Hypokalemia: Code(s): E87.6 - Hypokalemia Status: Acute Assessment and Plan: * noted on 10/12 labs * replacement ongoing. Dr. Cruz ordered another round of KCl for today * magnesium okay * most likely due to total body potassium depletion left over from the DKA. * check again in the morning (6) Anemia: Code(s): D64.9 - Anemia, unspecified Status: Acute Assessment and Plan: * noted downward trend since admission * possibly related to hemoconcentration with admission volume depletion * follow trend of H/H (7) Essential (primary) hypertension: Code(s): I10 - Essential (primary) hypertension Status: Chronic Assessment and Plan: * reasonable control * follow trend of hemodynamics (8) Type 2 diabetes mellitus with hyperglycemia: Code(s): E11.65 - Type 2 diabetes mellitus with hyperglycemia Status: Chronic Assessment and Plan: * poor control at baseline * HgbA1c 12.0... * admitted with DKA (see #3) * follow accu-cheks * glycemic control per hospitalist Subjective Date/time seen: 10/15/24 09:47 Interval history: patient feels fine. Standing up inside his hospital room. no chest pain or shortness of breath. Eating and drinking pretty well. Exam Narrative: General: middle aged WD/WN male in NAD Heart: normal S1 and S2; no rub oir gallop Lungs: clear to auscultation Abdomen: soft, nontender, nondistended, positive bowel sounds Extremities: no cyanosis or clubbing; no edema Skin: no rash Objective Data Vital Signs Vital Signs: Vital Signs - 24 hr 10/14/24 12:00 10/14/24 13:37 10/14/24 16:00 Temperature 98.4 F Pulse Rate 95 102 H 100 Respiratory Rate 20 Blood Pressure 150/85 H Pulse Oximetry 92 Oxygen Delivery Fraction of Inspired Oxygen 10/14/24 20:00 10/14/24 20:00 10/14/24 21:07 Temperature Pulse Rate 110 H 111 H 113 H Respiratory Rate 18 Blood Pressure Pulse Oximetry 92 Oxygen Delivery Room Air Fraction of Inspired Oxygen 21 10/14/24 21:39 10/15/24 00:00 10/15/24 04:00 Temperature 99 F Pulse Rate 110 H 99 96 Respiratory Rate 18 Blood Pressure 136/88 Pulse Oximetry 92 Oxygen Delivery Fraction of Inspired Oxygen 10/15/24 06:00 10/15/24 08:53 Temperature 98.1 F Pulse Rate 105 H 90 Respiratory Rate 20 Blood Pressure 154/88 H Pulse Oximetry 91 Oxygen Delivery Fraction of Inspired Oxygen Intake/Output Intake/Output: Intake & Output 10/12/24 10/13/24 10/14/24 10/15/24 23:59 23:59 23:59 23:59 Intake Total 3304 1545 2340 560 Output Total 3875 900 1500 800 Balance -571 645 840 -240 Meds/Results Medications: Active Medications Generic Name Dose Route Start Last Admin Trade Name Freq PRN Reason Stop Dose Admin Acetaminophen 650 mg 10/09/24 20:05 10/13/24 20:55 Acetaminophen 325 Mg Tablet PO 650 mg Q4H PRN Administration Mild Pain (1-3) or Fever Aspirin 81 mg 10/10/24 09:00 10/15/24 08:53 Aspirin 81 Mg Enteric Tablet PO 81 mg DAILY RUBY Administration Atorvastatin Calcium 40 mg 10/10/24 09:00 10/15/24 08:53 Atorvastatin 40 Mg Tablet BY MOUTH 40 mg DAILY RUBY Administration Dextrose 12.5 gm 10/09/24 14:14 Dextrose 50% 25 Gm/50 Ml Syringe IV PUSH PRN PRN Hypoglycemia Protocol Enoxaparin Sodium 40 mg 10/10/24 09:00 10/15/24 08:58 Enoxaparin 40 Mg/0.4 Ml Syringe SUB-Q Not Given DAILY RUBY Glucagon 1 mg 10/09/24 14:14 Glucagon For Inj 1 Mg Vial IM PRN PRN Hypoglycemia Protocol Glucose 15 gm 10/09/24 14:14 Glucose Oral Gel 15 Gm Of Glucse In 37.5 Gm Tube PO PRN PRN Hypoglycemia Protocol Dextrose 1,000 mls @ 100 mls/hr 10/09/24 14:14 Dextrose 5% 1,000 Ml IVPB PRN PRN Hypoglycemia Protocol Sodium Chloride 1,000 mls @ 75 mls/hr 10/11/24 03:25 10/14/24 22:04 Normal Saline Iv IV CONT 75 mls/hr .[id number] RUBY Administration Cefazolin Sodium 2 gm in 50 mls @ 100 mls/hr 10/14/24 12:30 10/15/24 06:03 Ancef 2 Gm/D5w 50 Ml IVPB Infused Q8HR [facility] Infusion Insulin Aspart 3 - 6 units 10/10/24 08:00 10/15/24 08:17 Insulin Aspart (*Bkc) 100 Units/Ml SUB-Q Not Given TIDWM [facility] Protocol Insulin Aspart 1 - 3 units 10/10/24 21:00 10/14/24 21:08 Insulin Aspart (*Bkc) 100 Units/Ml SUB-Q Not Given HS [facility] Protocol Insulin Aspart 5 units 10/12/24 17:00 10/15/24 08:53 Insulin Aspart (*Bkc) 100 Units/Ml SUB-Q 5 units TIDWM [facility] Administration Insulin Glargine 25 units 10/12/24 21:00 10/14/24 21:08 Insulin Glargine (*Bkc) 100 Units/Ml SUB-Q 25 units HS RUBY Administration Melatonin 3 mg 10/10/24 21:00 10/14/24 21:08 Melatonin 3 Mg Tablet PO 3 mg HS [facility] Administration Metoprolol Tartrate 25 mg 10/09/24 21:05 10/15/24 08:53 Metoprolol Tartrate 25 Mg Tablet PO 25 mg Q12HR RUBY Administration Perflutren Lipid Microsphere 0 ml 10/14/24 13:11 Perflutren Lipid Microspheres 1.5 Ml Vial Diluted To 10 Ml Total Volume IV PUSH 10/17/24 13:12 ONCE PRN adequate visualization Protocol Potassium Bicarbonate 50 meq 10/15/24 12:00 Potassium Bicarbonate 25 Meq Tabef PO 10/15/24 12:01 ONCE ONE Ramipril 5 mg 10/10/24 09:00 Ramipril 5 Mg Capsule BY MOUTH DAILY [facility] Radiology Results: ITS Impressions Head CT 10/09/24 14:57 IMPRESSION: No acute intracranial findings. Labs Labs: Laboratory Results - last 24 hr 10/12/24 10/14/24 10/14/24 02:56 11:33 16:51 WBC RBC Hgb Hct MCV MCH MCHC RDW Plt Count MPV Sodium Potassium Chloride Carbon Dioxide Anion Gap BUN Creatinine Estim Creat Clear Calc Estimated GFR Glucose POC Capillary Glucose 170 H 79 Calcium Magnesium Total Bilirubin AST ALT Alkaline Phosphatase Total Protein Albumin 2.0 L Hqdtz-2-Zsrwnswvv 0.7 H Glndb-6-Nuzcxyhvh 0.9 Smof-5-Tzuvohue 0.3 L Xbrm-1-Gsfhxign 0.4 Gamma Globulins 0.7 L PEP Interpretation See note 10/14/24 10/15/24 10/15/24 20:51 04:17 08:09 WBC 9.6 RBC 3.55 L Hgb 9.8 L Hct 29.6 L MCV 83.4 MCH 27.6 MCHC 33.1 RDW 13.4 Plt Count 483 H MPV 8.3 Sodium 134 L Potassium 3.3 L Chloride 103 Carbon Dioxide 26 Anion Gap 5 BUN 7 L Creatinine 0.65 L Estim Creat Clear Calc 105 Estimated GFR > 60 Glucose 127 H POC Capillary Glucose 190 H 127 H Calcium 7.2 L Magnesium 2.2 Total Bilirubin 0.3 AST 60 H ALT 57 H Alkaline Phosphatase 209 H Total Protein 6.0 L Albumin 2.5 L Uvwpa-5-Zzqlxpuzr Usfce-1-Waxnuaiwg Iqpp-8-Wfcvfbof Xdoq-9-Glyvopuu Gamma Globulins PEP Interpretation
--- NOTE | 2024-10-15 11:33 | PM.IMPN ---
Progress Note: A&P Assessment and Plan (1) Abscess: Code(s): L02.91 - Cutaneous abscess, unspecified Status: Acute (2) DKA (diabetic ketoacidosis): Code(s): E11.10 - Type 2 diabetes mellitus with ketoacidosis without coma Status: Resolved (3) Acute hyponatremia: Code(s): E87.1 - Hypo-osmolality and hyponatremia Status: Acute (4) Type 2 diabetes mellitus with hyperglycemia: Code(s): E11.65 - Type 2 diabetes mellitus with hyperglycemia Status: Chronic (5) Coronary artery disease: Code(s): I25.10 - Atherosclerotic heart disease of [place] coronary artery without angina pectoris Status: Acute (6) Essential (primary) hypertension: Code(s): I10 - Essential (primary) hypertension Status: Chronic (7) Mixed hyperlipidemia: Code(s): E78.2 - Mixed hyperlipidemia Status: Acute (8) Sepsis: Code(s): A41.9 - Sepsis, unspecified organism Status: Acute (9) Tachycardia: Code(s): R00.0 - Tachycardia, unspecified Status: Acute Plan patient with history of diabetes presented with DKA was initially admitted into ICU was treated with iv insulin and his GAP closed and patient was transferred out of ICU, patient also presented with 2 abscess on occipital area, one of the abscess was I&D in the ER, Patient was seen by surgery service and recommended further I&D which was performed on 10/11/2024. Patient has uncontrolled diabetes he presented with A1c of 12, he was seen by PMD in January 2024 and his A1c was 7, patient stats in winter has not been able to do his regular exercise and diet control, and feels very tired and weak, patient has hyponatremia severe with level 119 on admission. Most likely dehydration patient is being gently hydrated, nephrology consulted and following. Sodium level has continued to improved since then. Wound culture is growing Staph aureus which came back positive for MSSA. Type 2 diabetes uncontrolled A1c 12 suggested insulin regimen at discharge. Patient on combination of dapagliflozin and metformin prior to this. Bacteremia with MSSA. Blood culture from 10/11/2024 still positive. Antibiotics changed to Ancef. Since persistent echocardiogram performed which showed normal EF at 55-60% mid anterior septal hypokinetic wall, no significant valvular abnormality. Coronary artery disease status post CABG Cough will get chest x-ray DVT prophylaxis resume Lovenox Subjective Date/time seen: 10/15/24 11:33 Interval history: No overnight events. Has some cough. Remains afebrile. Review of Systems Review of Systems: All systems reviewed & are unremarkable except as noted in HPI and below ( HPI) Exam Narrative: Patient is comfortable, NAD HEENT: eyes are clear and none icteric LUNGS: Coarse breath sounds bilaterally. Decreased breath sounds on right side mildly HEART: RR S1S2 ABD: BS+, Soft and nontender Lower extremities: no edema SKIN: nonjaundiced: occipital 2x abscesses no drainage. Neuro: grossly intact. Objective Data Vital Signs Vital Signs: Vital Signs - 24 hr 10/14/24 12:00 10/14/24 13:37 10/14/24 16:00 Temperature 98.4 F Pulse Rate 95 102 H 100 Respiratory Rate 20 Blood Pressure 150/85 H Pulse Oximetry 92 Oxygen Delivery Fraction of Inspired Oxygen 10/14/24 20:00 10/14/24 20:00 10/14/24 21:07 Temperature Pulse Rate 110 H 111 H 113 H Respiratory Rate 18 Blood Pressure Pulse Oximetry 92 Oxygen Delivery Room Air Fraction of Inspired Oxygen 21 10/14/24 21:39 10/15/24 00:00 10/15/24 04:00 Temperature 99 F Pulse Rate 110 H 99 96 Respiratory Rate 18 Blood Pressure 136/88 Pulse Oximetry 92 Oxygen Delivery Fraction of Inspired Oxygen 10/15/24 06:00 10/15/24 08:53 Temperature 98.1 F Pulse Rate 105 H 90 Respiratory Rate 20 Blood Pressure 154/88 H Pulse Oximetry 91 Oxygen Delivery Fraction of Inspired Oxygen Intake/Output Intake/Output: Intake & Output 10/12/24 10/13/24 10/14/24 10/15/24 23:59 23:59 23:59 23:59 Intake Total 3304 1545 2340 560 Output Total 3875 900 1500 800 Balance -571 645 840 -240 Meds/Results Medications: Active Medications Generic Name Dose Route Start Last Admin Trade Name Freq PRN Reason Stop Dose Admin Acetaminophen 650 mg 10/09/24 20:05 10/13/24 20:55 Acetaminophen 325 Mg Tablet PO 650 mg Q4H PRN Administration Mild Pain (1-3) or Fever Aspirin 81 mg 10/10/24 09:00 10/15/24 08:53 Aspirin 81 Mg Enteric Tablet PO 81 mg DAILY RUBY Administration Atorvastatin Calcium 40 mg 10/10/24 09:00 10/15/24 08:53 Atorvastatin 40 Mg Tablet BY MOUTH 40 mg DAILY RUBY Administration Dextrose 12.5 gm 10/09/24 14:14 Dextrose 50% 25 Gm/50 Ml Syringe IV PUSH PRN PRN Hypoglycemia Protocol Enoxaparin Sodium 40 mg 10/10/24 09:00 10/15/24 08:58 Enoxaparin 40 Mg/0.4 Ml Syringe SUB-Q Not Given DAILY RUBY Glucagon 1 mg 10/09/24 14:14 Glucagon For Inj 1 Mg Vial IM PRN PRN Hypoglycemia Protocol Glucose 15 gm 10/09/24 14:14 Glucose Oral Gel 15 Gm Of Glucse In 37.5 Gm Tube PO PRN PRN Hypoglycemia Protocol Dextrose 1,000 mls @ 100 mls/hr 10/09/24 14:14 Dextrose 5% 1,000 Ml IVPB PRN PRN Hypoglycemia Protocol Sodium Chloride 1,000 mls @ 75 mls/hr 10/11/24 03:25 10/14/24 22:04 Normal Saline Iv IV CONT 75 mls/hr .[id number] RUBY Administration Cefazolin Sodium 2 gm in 50 mls @ 100 mls/hr 10/14/24 12:30 10/15/24 06:03 Ancef 2 Gm/D5w 50 Ml IVPB Infused Q8HR RUBY Infusion Insulin Aspart 3 - 6 units 10/10/24 08:00 10/15/24 08:17 Insulin Aspart (*Bkc) 100 Units/Ml SUB-Q Not Given TIDWM [facility] Protocol Insulin Aspart 1 - 3 units 10/10/24 21:00 10/14/24 21:08 Insulin Aspart (*Bkc) 100 Units/Ml SUB-Q Not Given HS RUBY Protocol Insulin Aspart 5 units 10/12/24 17:00 10/15/24 08:53 Insulin Aspart (*Bkc) 100 Units/Ml SUB-Q 5 units TIDWM RUBY Administration Insulin Glargine 25 units 10/12/24 21:00 10/14/24 21:08 Insulin Glargine (*Bkc) 100 Units/Ml SUB-Q 25 units HS RUBY Administration Melatonin 3 mg 10/10/24 21:00 10/14/24 21:08 Melatonin 3 Mg Tablet PO 3 mg HS RUBY Administration Metoprolol Tartrate 25 mg 10/09/24 21:05 10/15/24 08:53 Metoprolol Tartrate 25 Mg Tablet PO 25 mg Q12HR RUBY Administration Perflutren Lipid Microsphere 0 ml 10/14/24 13:11 Perflutren Lipid Microspheres 1.5 Ml Vial Diluted To 10 Ml Total Volume IV PUSH 10/17/24 13:12 ONCE PRN adequate visualization Protocol Potassium Bicarbonate 50 meq 10/15/24 12:00 Potassium Bicarbonate 25 Meq Tabef PO 10/15/24 12:01 ONCE ONE Ramipril 5 mg 10/10/24 09:00 Ramipril 5 Mg Capsule BY MOUTH DAILY [facility] Radiology Results: ITS Impressions Head CT 10/09/24 14:57 IMPRESSION: No acute intracranial findings. Labs Labs: Laboratory Results - last 24 hr 10/14/24 10/14/24 10/14/24 11:33 16:51 20:51 WBC RBC Hgb Hct MCV MCH MCHC RDW Plt Count MPV Sodium Potassium Chloride Carbon Dioxide Anion Gap BUN Creatinine Estim Creat Clear Calc Estimated GFR Glucose POC Capillary Glucose 170 H 79 190 H Calcium Magnesium Total Bilirubin AST ALT Alkaline Phosphatase Total Protein Albumin 10/15/24 10/15/24 04:17 08:09 WBC 9.6 RBC 3.55 L Hgb 9.8 L Hct 29.6 L MCV 83.4 MCH 27.6 MCHC 33.1 RDW 13.4 Plt Count 483 H MPV 8.3 Sodium 134 L Potassium 3.3 L Chloride 103 Carbon Dioxide 26 Anion Gap 5 BUN 7 L Creatinine 0.65 L Estim Creat Clear Calc 105 Estimated GFR > 60 Glucose 127 H POC Capillary Glucose 127 H Calcium 7.2 L Magnesium 2.2 Total Bilirubin 0.3 AST 60 H ALT 57 H Alkaline Phosphatase 209 H Total Protein 6.0 L Albumin 2.5 L
[2024-10-15] MEDS: POTASSIUM CHLORIDE 20 MEQ ER TABLET 40 MEQ PO (12:25)
[2024-10-15 12:27] LABS: Glucose Point of Care 118 mg/dl (65-105)
[2024-10-15] MEDS: SODIUM CHLORIDE 0.9% IV 1,000 ML 75 ML IV CONT (12:32)
[2024-10-15] MEDS: FUROSEMIDE INJ 40 MG/4 ML VIAL IV PUSH (14:58)
[2024-10-15 16:59] LABS: Glucose Point of Care 124 mg/dl (65-105)
[2024-10-15] MEDS: INSULIN GLARGINE (*BKC) 100 UNITS/ML 25 UNITS SUB-Q (21:25)
[2024-10-15] MEDS: MELATONIN 3 MG TABLET PO (21:26)
[2024-10-16] VITALS (12 sets, daily range): BP systolic 120–154; BP diastolic 75–96; PULSE 87–104; RESP 16–20; TEMP 36.4–37.9; O2SAT 92–100
[2024-10-16 01:25] LABS: Glucose Point of Care 125 mg/dl (65-105)
[2024-10-16 05:02] LABS: Hematocrit 29.9 % (42.0-52.0); Hemoglobin 9.7 g/dL (14.0-18.0); Mean Corpuscular HGB Conc 32.4 g/dl (32-36); Mean Corpuscular Hemoglobin 27.4 pg (26-34); Mean Corpuscular Volume 84.5 fl (80-100); Mean Platelet Volume 8.1 fl (7.4-10.4); Platelet Count Result 502 k/mm3 (150-375); Red Blood Count 3.54 M/mm3 (4.6-6.20); Red Cell Distribution Width 13.2 % (11.5-14.5); White Blood Count 10.2 K/mm3 (4.5-10.0)
[2024-10-16 05:19] LABS: Alanine Aminotransferase 44 U/L (6-50); Albumin Level 2.6 g/dL (3.5-5.1); Alkaline Phosphatase 211 U/L (38-126); Anion Gap 4 mmol/L (4-12); Aspartate Amino Transferase 59 U/L (17-59); Bilirubin,Total 0.3 mg/dL (0.2-1.3); Blood Urea Nitrogen 8 mg/dL (9-20); Calcium 7.4 mg/dL (8.4-10.2); Carbon Dioxide 30 mmol/L (22-30); Chloride 101 mmol/L (98-107); Estimated CRCL calculation 98 ml/min; Estimated Glomerular Filt Rate > 60; Glucose 100 mg/dL (65-110); Magnesium 2.1 mg/dL (1.6-2.3); Potassium 3.5 mmol/L (3.4-5.0); Sodium 135 mmol/L (137-145)
[2024-10-16] MEDS: ceFAZolin 2 GM/D5W 50 ML 2 GM/50 ML BAG IVPB ×3 (05:43→21:16)
[2024-10-16 08:08] LABS: Glucose Point of Care 120 mg/dl (65-105)
[2024-10-16] MEDS: METOPROLOL TARTRATE 25 MG TABLET PO ×2 (08:17→21:15)
[2024-10-16] MEDS: ENOXAPARIN 40 MG/0.4 ML SYRINGE SUB-Q (08:18)
[2024-10-16] MEDS: ASPIRIN 81 MG ENTERIC TABLET PO (08:18)
[2024-10-16] MEDS: ATORVASTATIN 40 MG TABLET BY MOUTH (08:18)
[2024-10-16] MEDS: INSULIN ASPART (*BKC) 100 UNITS/ML SUB-Q ×4 (08:21→17:22)
--- NOTE | 2024-10-16 10:57 | P.PNNP_ITS ---
Progress Note: A&P Assessment and Plan (1) Hyponatremia: Code(s): E87.1 - Hypo-osmolality and hyponatremia Status: Acute Assessment and Plan: * slow and ongoing improvement noted at this time * sodium 131mmol/L approximately six months ago * however, his blood sugar was 471 at that time -- corrected sodium would be ~ 137 - 140mmol/L * evaluation to date noted: * TSH okay * cortisol in range * urine sodium low indicative of prerenal factors * serum/urine osmolality pending * SPEP negative, UPEP pending * CT of head negative * refused chest x-ray * no culptrit medications (i.e. thiazide diuretics, SSRIs, narcotics...etc) * sodium level is improving very gradually as desired. [phone] and now 135 * suspect due to volume depletion exacerbated by hyperglycemia/DKA * sugars under control. * regular fluid instructions, no restriction. * sodium level is doing well. * home any time from renal standpoint (2) Bacteremia: Code(s): R78.81 - Bacteremia Status: Acute Assessment and Plan: * as noted by culture data: * 10/09 blood cultures (2/2) - Staphylococcus aureus * 10/11 blood cultures (2/2) - Staphylococcus aureus * repeat cultures pending * on cefazolin * white count is better and no fevers since 10/12 (3) DKA (diabetic ketoacidosis): Code(s): E11.10 - Type 2 diabetes mellitus with ketoacidosis without coma Status: Resolved Assessment and Plan: * as noted on admission * resolved with appropriate treatment (IVFs, insulin gtt...etc) * possibly triggered by infection (seen #2 and #4) * sugars are better and anion gap is normal (4) Scalp abscess: Code(s): L02.811 - Cutaneous abscess of head [any part, except face] Status: Acute Assessment and Plan: * presumed source of #2 * wound culture with Heavy growth of Staphylococcus aureus * General Surgery following: * status post I&D x 2 * continue packing dressing changes * local wound care * on IV antibiotics (5) Hypokalemia: Code(s): E87.6 - Hypokalemia Status: Acute Assessment and Plan: * potassium good today * he is not on any meds that would lower K. * probably due to total body K depletion from the DKA (6) Anemia: Code(s): D64.9 - Anemia, unspecified Status: Acute Assessment and Plan: * this seems to have plateaued. (7) Essential (primary) hypertension: Code(s): I10 - Essential (primary) hypertension Status: Chronic Assessment and Plan: * systolic 130 to 160. * will restart the ramipril. (8) Type 2 diabetes mellitus with hyperglycemia: Code(s): E11.65 - Type 2 diabetes mellitus with hyperglycemia Status: Chronic Assessment and Plan: * poor control at baseline * HgbA1c 12.0... * admitted with DKA (see #3) * follow accu-cheks * glycemic control per hospitalist Subjective Date/time seen: 10/16/24 10:57 Interval history: Guzman is feeling okay today. Eager for discharge. Eating well. No chest pain or shortness of breath. Exam Narrative: General: middle aged WD/WN male in NAD Heart: normal S1 and S2; no rub or gallop Lungs: clear bilaterally Abdomen: soft, nontender, nondistended, positive bowel sounds Extremities: no cyanosis or clubbing; no edema Skin: no rash or sq nodules Objective Data Vital Signs Vital Signs: Vital Signs - 24 hr 10/15/24 12:00 10/15/24 14:00 10/15/24 16:00 Temperature 98.2 F Pulse Rate 92 100 94 Respiratory Rate 20 Blood Pressure 142/88 H Pulse Oximetry 95 Oxygen Delivery Fraction of Inspired Oxygen 10/15/24 20:00 10/15/24 20:00 10/15/24 21:26 Temperature Pulse Rate 106 H 106 H 109 H Respiratory Rate 16 Blood Pressure Pulse Oximetry 95 Oxygen Delivery Room Air Fraction of Inspired Oxygen 21 10/15/24 21:34 10/16/24 00:00 10/16/24 04:00 Temperature 98.2 F Pulse Rate 106 H 93 94 Respiratory Rate 16 Blood Pressure 160/103 H Pulse Oximetry 95 Oxygen Delivery Fraction of Inspired Oxygen 10/16/24 05:22 10/16/24 08:17 10/16/24 08:17 Temperature 98.8 F 97.6 F Pulse Rate 100 101 H 101 H Respiratory Rate 16 16 Blood Pressure 144/93 H 154/96 H Pulse Oximetry 92 99 Oxygen Delivery Fraction of Inspired Oxygen 10/16/24 08:17 10/16/24 08:17 Temperature Pulse Rate 101 H 101 H Respiratory Rate 16 Blood Pressure Pulse Oximetry 99 Oxygen Delivery Room Air Fraction of Inspired Oxygen 21 Intake/Output Intake/Output: Intake & Output 10/13/24 10/14/24 10/15/24 10/16/24 23:59 23:59 23:59 23:59 Intake Total 1545 2340 2322.5 840 Output Total 900 1500 1850 1400 Balance 645 840 472.5 -560 Meds/Results Medications: Active Medications Generic Name Dose Route Start Last Admin Trade Name Freq PRN Reason Stop Dose Admin Acetaminophen 650 mg 10/09/24 20:05 10/13/24 20:55 Acetaminophen 325 Mg Tablet PO 650 mg Q4H PRN Administration Mild Pain (1-3) or Fever Aspirin 81 mg 10/10/24 09:00 10/16/24 08:18 Aspirin 81 Mg Enteric Tablet PO 81 mg DAILY RUBY Administration Atorvastatin Calcium 40 mg 10/10/24 09:00 10/16/24 08:18 Atorvastatin 40 Mg Tablet BY MOUTH 40 mg DAILY RUBY Administration Dextrose 12.5 gm 10/09/24 14:14 Dextrose 50% 25 Gm/50 Ml Syringe IV PUSH PRN PRN Hypoglycemia Protocol Enoxaparin Sodium 40 mg 10/10/24 09:00 10/16/24 08:18 Enoxaparin 40 Mg/0.4 Ml Syringe SUB-Q 40 mg DAILY RUBY Administration Glucagon 1 mg 10/09/24 14:14 Glucagon For Inj 1 Mg Vial IM PRN PRN Hypoglycemia Protocol Glucose 15 gm 10/09/24 14:14 Glucose Oral Gel 15 Gm Of Glucse In 37.5 Gm Tube PO PRN PRN Hypoglycemia Protocol Dextrose 1,000 mls @ 100 mls/hr 10/09/24 14:14 Dextrose 5% 1,000 Ml IVPB PRN PRN Hypoglycemia Protocol Cefazolin Sodium 2 gm in 50 mls @ 100 mls/hr 10/14/24 12:30 10/16/24 06:13 Ancef 2 Gm/D5w 50 Ml IVPB Infused Q8HR RUBY Infusion Insulin Aspart 3 - 6 units 10/10/24 08:00 10/16/24 08:22 Insulin Aspart (*Bkc) 100 Units/Ml SUB-Q Not Given TIDWM RUBY Protocol Insulin Aspart 1 - 3 units 10/10/24 21:00 10/15/24 21:42 Insulin Aspart (*Bkc) 100 Units/Ml SUB-Q Not Given HS [facility] Protocol Insulin Aspart 5 units 10/12/24 17:00 10/16/24 08:21 Insulin Aspart (*Bkc) 100 Units/Ml SUB-Q 5 units TIDWM RUBY Administration Insulin Glargine 25 units 10/12/24 21:00 10/15/24 21:25 Insulin Glargine (*Bkc) 100 Units/Ml SUB-Q 25 units HS RUBY Administration Melatonin 3 mg 10/10/24 21:00 10/15/24 21:26 Melatonin 3 Mg Tablet PO 3 mg HS RUBY Administration Metoprolol Tartrate 25 mg 10/09/24 21:05 10/16/24 08:17 Metoprolol Tartrate 25 Mg Tablet PO 25 mg Q12HR RUBY Administration Perflutren Lipid Microsphere 0 ml 10/14/24 13:11 Perflutren Lipid Microspheres 1.5 Ml Vial Diluted To 10 Ml Total Volume IV PUSH 10/17/24 13:12 ONCE PRN adequate visualization Protocol Ramipril 5 mg 10/10/24 09:00 Ramipril 5 Mg Capsule BY MOUTH DAILY [facility] Radiology Results: ITS Impressions Head CT 10/09/24 14:57 IMPRESSION: No acute intracranial findings. Chest X-Ray 10/15/24 13:52 IMPRESSION: 1. Bilateral lung disease with appearance most consistent with mild to moderate pulmonary edema. Differential would include pneumonia. Labs Labs: Laboratory Results - last 24 hr 10/15/24 10/15/24 10/15/24 12:22 16:55 21:32 WBC RBC Hgb Hct MCV MCH MCHC RDW Plt Count MPV Sodium Potassium Chloride Carbon Dioxide Anion Gap BUN Creatinine Estim Creat Clear Calc Estimated GFR Glucose POC Capillary Glucose 118 H 124 H 125 H Calcium Magnesium Total Bilirubin AST ALT Alkaline Phosphatase Total Protein Albumin 10/16/24 10/16/24 04:50 08:03 WBC 10.2 H RBC 3.54 L Hgb 9.7 L Hct 29.9 L MCV 84.5 MCH 27.4 MCHC 32.4 RDW 13.2 Plt Count 502 H MPV 8.1 Sodium 135 L Potassium 3.5 Chloride 101 Carbon Dioxide 30 Anion Gap 4 BUN 8 L Creatinine 0.70 Estim Creat Clear Calc 98 Estimated GFR > 60 Glucose 100 POC Capillary Glucose 120 H Calcium 7.4 L Magnesium 2.1 Total Bilirubin 0.3 AST 59 ALT 44 Alkaline Phosphatase 211 H Total Protein 6.0 L Albumin 2.6 L
[2024-10-16 12:12] LABS: Glucose Point of Care 208 mg/dl (65-105)
--- NOTE | 2024-10-16 12:23 | P.PNIM_ITS ---
Progress Note: A&P Assessment and Plan (1) Abscess: Code(s): L02.91 - Cutaneous abscess, unspecified Status: Acute (2) DKA (diabetic ketoacidosis): Code(s): E11.10 - Type 2 diabetes mellitus with ketoacidosis without coma Status: Resolved (3) Acute hyponatremia: Code(s): E87.1 - Hypo-osmolality and hyponatremia Status: Acute (4) Type 2 diabetes mellitus with hyperglycemia: Code(s): E11.65 - Type 2 diabetes mellitus with hyperglycemia Status: Chronic (5) Coronary artery disease: Code(s): I25.10 - Atherosclerotic heart disease of [place] coronary artery without angina pectoris Status: Acute (6) Essential (primary) hypertension: Code(s): I10 - Essential (primary) hypertension Status: Chronic (7) Mixed hyperlipidemia: Code(s): E78.2 - Mixed hyperlipidemia Status: Acute (8) Sepsis: Code(s): A41.9 - Sepsis, unspecified organism Status: Acute (9) Tachycardia: Code(s): R00.0 - Tachycardia, unspecified Status: Acute Plan patient with history of diabetes presented with DKA was initially admitted into ICU was treated with iv insulin and his GAP closed and patient was transferred out of ICU, patient also presented with 2 abscess on occipital area, one of the abscess was I&D in the ER, Patient was seen by surgery service and recommended further I&D which was performed on 10/11/2024. Patient has uncontrolled diabetes he presented with A1c of 12, he was seen by PMD in January 2024 and his A1c was 7, patient stats in winter has not been able to do his regular exercise and diet control, and feels very tired and weak, patient has hyponat remia severe with level 119 on admission. Most likely dehydration patient is being gently hydrated, nephrology consulted and following. Sodium level has continued to improved since then. Wound culture is growing Staph aureus which came back positive for MSSA. Type 2 diabetes uncontrolled A1c 12 suggested insulin regimen at discharge. Patient on combination of dapagliflozin and metformin prior to this. Bacteremia with MSSA. Blood culture from 10/11/2024 still positive. Antibiotics changed to Ancef. Since persistent echocardiogram performed which showed normal EF at 55-60% mid anterior septal hypokinetic wall, no significant valvular abnormality. Repeat blood culture obtained today Coronary artery disease status post CABG Cough chest x-ray with congestive changes. IV fluids stopped and IV Lasix given. Re-dose IV Lasix today. DVT prophylaxis resume Lovenox Subjective Date/time seen: 10/16/24 12:23 Interval history: He states he urinated quite a bit yesterday. Feels better. Remains afebrile. Blood culture obtained today. Review of Systems Review of Systems: All systems reviewed & are unremarkable except as noted in HPI and below ( HPI) Exam Narrative: Patient is comfortable, NAD HEENT: eyes are clear and none icteric LUNGS: Coarse breath sounds bilaterally. Much improved compared to yesterday. HEART: RR S1S2 ABD: BS+, Soft and nontender Lower extremities: no edema SKIN: nonjaundiced: occipital 2x abscesses no drainage. Neuro: grossly intact. Objective Data Vital Signs Vital Signs: Vital Signs - 24 hr 10/15/24 14:00 10/15/24 16:00 10/15/24 20:00 Temperature 98.2 F Pulse Rate 100 94 106 H Respiratory Rate 20 16 Blood Pressure 142/88 H Pulse Oximetry 95 95 Oxygen Delivery Room Air Fraction of Inspired Oxygen 21 10/15/24 20:00 10/15/24 21:26 10/15/24 21:34 Temperature 98.2 F Pulse Rate 106 H 109 H 106 H Respiratory Rate 16 Blood Pressure 160/103 H Pulse Oximetry 95 Oxygen Delivery Fraction of Inspired Oxygen 10/16/24 00:00 10/16/24 04:00 10/16/24 05:22 Temperature 98.8 F Pulse Rate 93 94 100 Respiratory Rate 16 Blood Pressure 144/93 H Pulse Oximetry 92 Oxygen Delivery Fraction of Inspired Oxygen 10/16/24 08:17 10/16/24 08:17 10/16/24 08:17 Temperature 97.6 F Pulse Rate 101 H 101 H 101 H Respiratory Rate 16 16 Blood Pressure 154/96 H Pulse Oximetry 99 99 Oxygen Delivery Room Air Fraction of Inspired Oxygen 10/16/24 08:17 10/16/24 12:00 Temperature Pulse Rate 101 H 92 Respiratory Rate Blood Pressure Pulse Oximetry Oxygen Delivery Fraction of Inspired Oxygen Intake/Output Intake/Output: Intake & Output 10/13/24 10/14/24 10/15/24 10/16/24 23:59 23:59 23:59 23:59 Intake Total 1545 2340 2322.5 840 Output Total 900 1500 1850 1400 Balance 645 840 472.5 -560 Meds/Results Medications: Active Medications Generic Name Dose Route Start Last Admin Trade Name Freq PRN Reason Stop Dose Admin Acetaminophen 650 mg 10/09/24 20:05 10/13/24 20:55 Acetaminophen 325 Mg Tablet PO 650 mg Q4H PRN Administration Mild Pain (1-3) or Fever Aspirin 81 mg 10/10/24 09:00 10/16/24 08:18 Aspirin 81 Mg Enteric Tablet PO 81 mg DAILY RUBY Administration Atorvastatin Calcium 40 mg 10/10/24 09:00 10/16/24 08:18 Atorvastatin 40 Mg Tablet BY MOUTH 40 mg DAILY RUBY Administration Dextrose 12.5 gm 10/09/24 14:14 Dextrose 50% 25 Gm/50 Ml Syringe IV PUSH PRN PRN Hypoglycemia Protocol Enoxaparin Sodium 40 mg 10/10/24 09:00 10/16/24 08:18 Enoxaparin 40 Mg/0.4 Ml Syringe SUB-Q 40 mg DAILY RUBY Administration Glucagon 1 mg 10/09/24 14:14 Glucagon For Inj 1 Mg Vial IM PRN PRN Hypoglycemia Protocol Glucose 15 gm 10/09/24 14:14 Glucose Oral Gel 15 Gm Of Glucse In 37.5 Gm Tube PO PRN PRN Hypoglycemia Protocol Dextrose 1,000 mls @ 100 mls/hr 10/09/24 14:14 Dextrose 5% 1,000 Ml IVPB PRN PRN Hypoglycemia Protocol Cefazolin Sodium 2 gm in 50 mls @ 100 mls/hr 10/14/24 12:30 10/16/24 06:13 Ancef 2 Gm/D5w 50 Ml IVPB Infused Q8HR RUBY Infusion Insulin Aspart 3 - 6 units 10/10/24 08:00 10/16/24 08:22 Insulin Aspart (*Bkc) 100 Units/Ml SUB-Q Not Given TIDWM [facility] Protocol Insulin Aspart 1 - 3 units 10/10/24 21:00 10/15/24 21:42 Insulin Aspart (*Bkc) 100 Units/Ml SUB-Q Not Given HS RUBY Protocol Insulin Aspart 5 units 10/12/24 17:00 10/16/24 08:21 Insulin Aspart (*Bkc) 100 Units/Ml SUB-Q 5 units TIDWM RUBY Administration Insulin Glargine 25 units 10/12/24 21:00 10/15/24 21:25 Insulin Glargine (*Bkc) 100 Units/Ml SUB-Q 25 units HS RUBY Administration Melatonin 3 mg 10/10/24 21:00 10/15/24 21:26 Melatonin 3 Mg Tablet PO 3 mg HS RUBY Administration Metoprolol Tartrate 25 mg 10/09/24 21:05 10/16/24 08:17 Metoprolol Tartrate 25 Mg Tablet PO 25 mg Q12HR RUBY Administration Perflutren Lipid Microsphere 0 ml 10/14/24 13:11 Perflutren Lipid Microspheres 1.5 Ml Vial Diluted To 10 Ml Total Volume IV PUSH 10/17/24 13:12 ONCE PRN adequate visualization Protocol Ramipril 5 mg 10/10/24 09:00 Ramipril 5 Mg Capsule BY MOUTH DAILY [facility] Radiology Results: ITS Impressions Head CT 10/09/24 14:57 IMPRESSION: No acute intracranial findings. Chest X-Ray 10/15/24 13:52 IMPRESSION: 1. Bilateral lung disease with appearance most consistent with mild to moderate pulmonary edema. Differential would include pneumonia. Labs Labs: Laboratory Results - last 24 hr 10/15/24 10/15/24 10/15/24 12:22 16:55 21:32 WBC RBC Hgb Hct MCV MCH MCHC RDW Plt Count MPV Sodium Potassium Chloride Carbon Dioxide Anion Gap BUN Creatinine Estim Creat Clear Calc Estimated GFR Glucose POC Capillary Glucose 118 H 124 H 125 H Calcium Magnesium Total Bilirubin AST ALT Alkaline Phosphatase Total Protein Albumin 10/16/24 10/16/24 10/16/24 04:50 08:03 12:07 WBC 10.2 H RBC 3.54 L Hgb 9.7 L Hct 29.9 L MCV 84.5 MCH 27.4 MCHC 32.4 RDW 13.2 Plt Count 502 H MPV 8.1 Sodium 135 L Potassium 3.5 Chloride 101 Carbon Dioxide 30 Anion Gap 4 BUN 8 L Creatinine 0.70 Estim Creat Clear Calc 98 Estimated GFR > 60 Glucose 100 POC Capillary Glucose 120 H 208 H Calcium 7.4 L Magnesium 2.1 Total Bilirubin 0.3 AST 59 ALT 44 Alkaline Phosphatase 211 H Total Protein 6.0 L Albumin 2.6 L
[2024-10-16] MEDS: FUROSEMIDE INJ 40 MG/4 ML VIAL 20 MG IV PUSH (12:40)
[2024-10-16 16:45] LABS: Glucose Point of Care 122 mg/dl (65-105)
[2024-10-16] MEDS: MELATONIN 3 MG TABLET PO (21:15)
[2024-10-16] MEDS: INSULIN GLARGINE (*BKC) 100 UNITS/ML 25 UNITS SUB-Q (21:16)
[2024-10-16 23:00] LABS: Glucose Point of Care 159 mg/dl (65-105)
[2024-10-17] VITALS (12 sets, daily range): BP systolic 123–150; BP diastolic 75–93; PULSE 85–95; RESP 16–18; TEMP 36.6–37.2; O2SAT 94–97
[2024-10-17] MEDS: ceFAZolin 2 GM/D5W 50 ML 2 GM/50 ML BAG IVPB ×3 (05:07→21:03)
[2024-10-17 05:16] LABS: Hematocrit 31.5 % (42.0-52.0); Hemoglobin 9.6 g/dL (14.0-18.0); Mean Corpuscular HGB Conc 30.5 g/dl (32-36); Mean Corpuscular Hemoglobin 26.8 pg (26-34); Platelet Count Result 465 k/mm3 (150-375); Red Blood Count 3.58 M/mm3 (4.6-6.20); Red Cell Distribution Width 13.2 % (11.5-14.5); White Blood Count 8.6 K/mm3 (4.5-10.0)
[2024-10-17 05:29] LABS: Alanine Aminotransferase 41 U/L (6-50); Albumin Level 2.7 g/dL (3.5-5.1); Alkaline Phosphatase 209 U/L (38-126); Anion Gap 4 mmol/L (4-12); Aspartate Amino Transferase 62 U/L (17-59); Bilirubin,Total 0.4 mg/dL (0.2-1.3); Blood Urea Nitrogen 10 mg/dL (9-20); Calcium 7.7 mg/dL (8.4-10.2); Carbon Dioxide 29 mmol/L (22-30); Chloride 100 mmol/L (98-107); Estimated CRCL calculation 107 ml/min; Estimated Glomerular Filt Rate > 60; Glucose 112 mg/dL (65-110); Magnesium 2.1 mg/dL (1.6-2.3); Potassium 3.4 mmol/L (3.4-5.0); Sodium 133 mmol/L (137-145)
[2024-10-17 07:44] LABS: Glucose Point of Care 105 mg/dl (65-105)
[2024-10-17] MEDS: ASPIRIN 81 MG ENTERIC TABLET PO (08:12)
[2024-10-17] MEDS: ramipriL 5 MG CAPSULE BY MOUTH (08:12)
[2024-10-17] MEDS: METOPROLOL TARTRATE 25 MG TABLET PO ×2 (08:12→21:03)
[2024-10-17] MEDS: ATORVASTATIN 40 MG TABLET BY MOUTH (08:13)
[2024-10-17] MEDS: ENOXAPARIN 40 MG/0.4 ML SYRINGE SUB-Q (08:13)
--- NOTE | 2024-10-17 10:45 | P.PNGS_ITS ---
Progress Note: A&P Assessment and Plan (1) Scalp abscess: Code(s): L02.811 - Cutaneous abscess of head [any part, except face] Status: Acute Assessment and Plan: * Resolving 6 days following I&D posterior scalp abscess x2. Abscesses adequately drained. Swelling resolved with erythema much improved. No purulent drainage. Continue packing dressing changes with 1/4 iodoform gauze. His friend has helped in the past with packing changes and will plan to do his dressing changes after discharge. Will sign off at this time. Follow-up with Dr. Martell 2 weeks after discharge for wound recheck. (2) Bacteremia due to Staphylococcus aureus: Code(s): R78.81 - Bacteremia; B95.61 - Methicillin susceptible Staphylococcus aureus infection as the cause of diseases classified elsewhere Status: Acute Assessment and Plan: * Continue antibiotics per primary team. Blood cx with growth of MSSA, repeat blood cx on 10/16 still pending. (3) Sepsis: Code(s): A41.9 - Sepsis, unspecified organism Status: Acute (4) Type 2 diabetes mellitus with hyperglycemia: Code(s): E11.65 - Type 2 diabetes mellitus with hyperglycemia Status: Chronic Plan I have discussed the patient's case and plan of care with Dr. Martell. Subjective Subjective Date/Time Seen: 10/17/24 10:45 Patient reports: fever (Temp 100.3? F last night around 2200) Interval history: No new complaints. Patient feels stronger and is ambulating independently. No complaints of pain in his scalp. He has a friend that will be able to help with packing changes once discharged, as this friend has helped with packing changes for a perirectal abscess in the past. Exam Narrative: Posterior scalp abscesses x 2 with dressing and packing removed, no purulent drainage, erythema continues to improve, swelling and induration has resolved. No tenderness. Objective Data Vital Signs Vital Signs: Vital Signs - 24 hr 10/16/24 12:00 10/16/24 14:00 10/16/24 16:00 Temperature 97.8 F Pulse Rate 92 100 98 Respiratory Rate 18 Blood Pressure 120/75 Pulse Oximetry 98 Oxygen Delivery Fraction of Inspired Oxygen 10/16/24 20:00 10/16/24 20:00 10/16/24 20:55 Temperature Pulse Rate 104 H 104 H 102 H Respiratory Rate 20 20 Blood Pressure Pulse Oximetry 92 92 Oxygen Delivery Room Air Room Air Fraction of Inspired Oxygen 21 21 10/16/24 21:15 10/16/24 22:48 10/16/24 22:55 Temperature 100.3 F H Pulse Rate 104 H 87 Respiratory Rate 16 Blood Pressure 143/92 H 148/93 H Pulse Oximetry 100 Oxygen Delivery Fraction of Inspired Oxygen 10/17/24 00:00 10/17/24 04:00 10/17/24 04:35 Temperature 98.1 F Pulse Rate 89 85 95 Respiratory Rate 16 Blood Pressure 150/93 H Pulse Oximetry 94 Oxygen Delivery Fraction of Inspired Oxygen 10/17/24 08:00 10/17/24 08:09 10/17/24 08:12 Temperature 97.8 F Pulse Rate 91 93 93 Respiratory Rate 16 Blood Pressure 142/85 H Pulse Oximetry 94 Oxygen Delivery Fraction of Inspired Oxygen 10/17/24 08:12 Temperature Pulse Rate 93 Respiratory Rate 16 Blood Pressure Pulse Oximetry 94 Oxygen Delivery Room Air Fraction of Inspired Oxygen 21 Intake/Output Intake/Output: Intake & Output 10/14/24 10/15/24 10/16/24 10/17/24 23:59 23:59 23:59 23:59 Intake Total 2340 2322.5 1420 430 Output Total 1500 1850 2000 1100 Balance 840 232.8 -607 -787 Meds/Results Medications: Active Medications Generic Name Dose Route Start Last Admin Trade Name Freq PRN Reason Stop Dose Admin Acetaminophen 650 mg 10/09/24 20:05 10/13/24 20:55 Acetaminophen 325 Mg Tablet PO 650 mg Q4H PRN Administration Mild Pain (1-3) or Fever Aspirin 81 mg 10/10/24 09:00 10/17/24 08:12 Aspirin 81 Mg Enteric Tablet PO 81 mg DAILY RUBY Administration Atorvastatin Calcium 40 mg 10/10/24 09:00 10/17/24 08:13 Atorvastatin 40 Mg Tablet BY MOUTH 40 mg DAILY RBUY Administration Dextrose 12.5 gm 10/09/24 14:14 Dextrose 50% 25 Gm/50 Ml Syringe IV PUSH PRN PRN Hypoglycemia Protocol Enoxaparin Sodium 40 mg 10/10/24 09:00 10/17/24 08:13 Enoxaparin 40 Mg/0.4 Ml Syringe SUB-Q 40 mg DAILY RUBY Administration Glucagon 1 mg 10/09/24 14:14 Glucagon For Inj 1 Mg Vial IM PRN PRN Hypoglycemia Protocol Glucose 15 gm 10/09/24 14:14 Glucose Oral Gel 15 Gm Of Glucse In 37.5 Gm Tube PO PRN PRN Hypoglycemia Protocol Dextrose 1,000 mls @ 100 mls/hr 10/09/24 14:14 Dextrose 5% 1,000 Ml IVPB PRN PRN Hypoglycemia Protocol Cefazolin Sodium 2 gm in 50 mls @ 100 mls/hr 10/14/24 12:30 10/17/24 05:37 Ancef 2 Gm/D5w 50 Ml IVPB Infused Q8HR RUBY Infusion Insulin Aspart 3 - 6 units 10/10/24 08:00 10/17/24 08:15 Insulin Aspart (*Bkc) 100 Units/Ml SUB-Q Not Given TIDWM RUBY Protocol Insulin Aspart 1 - 3 units 10/10/24 21:00 10/16/24 21:16 Insulin Aspart (*Bkc) 100 Units/Ml SUB-Q Not Given HS RUBY Protocol Insulin Aspart 5 units 10/12/24 17:00 10/17/24 08:15 Insulin Aspart (*Bkc) 100 Units/Ml SUB-Q Not Given TIDWM RUBY Insulin Glargine 25 units 10/12/24 21:00 10/16/24 21:16 Insulin Glargine (*Bkc) 100 Units/Ml SUB-Q 25 units HS RUBY Administration Melatonin 3 mg 10/10/24 21:00 10/16/24 21:15 Melatonin 3 Mg Tablet PO 3 mg HS RUBY Administration Metoprolol Tartrate 25 mg 10/09/24 21:05 10/17/24 08:12 Metoprolol Tartrate 25 Mg Tablet PO 25 mg Q12HR RUBY Administration Perflutren Lipid Microsphere 0 ml 10/14/24 13:11 Perflutren Lipid Microspheres 1.5 Ml Vial Diluted To 10 Ml Total Volume IV PUSH 10/17/24 13:12 ONCE PRN adequate visualization Protocol Ramipril 5 mg 10/10/24 09:00 10/17/24 08:12 Ramipril 5 Mg Capsule BY MOUTH 5 mg DAILY RUBY Administration Radiology Results: ITS Impressions Head CT 10/09/24 14:57 IMPRESSION: No acute intracranial findings. Chest X-Ray 10/15/24 13:52 IMPRESSION: 1. Bilateral lung disease with appearance most consistent with mild to moderate pulmonary edema. Differential would include pneumonia. Labs Labs: Laboratory Results - last 24 hr 10/16/24 10/16/24 10/16/24 12:07 16:40 21:14 WBC RBC Hgb Hct MCV MCH MCHC RDW Plt Count MPV Sodium Potassium Chloride Carbon Dioxide Anion Gap BUN Creatinine Estim Creat Clear Calc Estimated GFR Glucose POC Capillary Glucose 208 H 122 H 159 H Calcium Magnesium Total Bilirubin AST ALT Alkaline Phosphatase Total Protein Albumin 10/17/24 10/17/24 04:58 07:40 WBC 8.6 RBC 3.58 L Hgb 9.6 L Hct 31.5 L MCV 88.0 MCH 26.8 MCHC 30.5 L RDW 13.2 Plt Count 465 H MPV 8.0 Sodium 133 L Potassium 3.4 Chloride 100 Carbon Dioxide 29 Anion Gap 4 BUN 10 Creatinine 0.64 L Estim Creat Clear Calc 107 Estimated GFR > 60 Glucose 112 H POC Capillary Glucose 105 Calcium 7.7 L Magnesium 2.1 Total Bilirubin 0.4 AST 62 H ALT 41 Alkaline Phosphatase 209 H Total Protein 6.0 L Albumin 2.7 L
--- NOTE | 2024-10-17 11:43 | P.PNNP_ITS ---
Progress Note: A&P Assessment and Plan (1) Hyponatremia: Code(s): E87.1 - Hypo-osmolality and hyponatremia Status: Acute Assessment and Plan: * slow and ongoing improvement noted at this time * sodium 131mmol/L approximately six months ago * however, his blood sugar was 471 at that time -- corrected sodium would be ~ 137 - 140mmol/L * evaluation to date noted: * TSH okay * cortisol in range * urine sodium low indicative of prerenal factors * serum/urine osmolality pending * SPEP negative, UPEP pending * CT of head negative * refused chest x-ray * no culptrit medications (i.e. thiazide diuretics, SSRIs, narcotics...etc) * goal of therapy is a rate of change of 6 - 8mmol/L in 24 hours (this was achieved) * suspect due to volume depletion exacerbated by hyperglycemia/DKA * follow trend of repeat sodium levels (2) Bacteremia: Code(s): R78.81 - Bacteremia Status: Acute Assessment and Plan: * as noted by culture data: * 10/09 blood cultures (2/2) - Staphylococcus aureus * 10/11 blood cultures (2/2) - Staphylococcus aureus * 10/16 blood cultures negative to date * on antibiotics (3) DKA (diabetic ketoacidosis): Code(s): E11.10 - Type 2 diabetes mellitus with ketoacidosis without coma Status: Resolved Assessment and Plan: * as noted on admission * resolved with appropriate treatment (IVFs, insulin gtt...etc) * possibly triggered by infection (seen #2 and #4) (4) Scalp abscess: Code(s): L02.811 - Cutaneous abscess of head [any part, except face] Status: Acute Assessment and Plan: * presumed source of #2 * wound culture with Heavy growth of Staphylococcus aureus * General Surgery following: * status post I&D x 2 * continue packing dressing changes * local wound care * on IV antibiotics (5) Hypokalemia: Code(s): E87.6 - Hypokalemia Status: Acute Assessment and Plan: * noted on 10/12 labs * replacement ongoing * magnesium okay * follow trend (6) Anemia: Code(s): D64.9 - Anemia, unspecified Status: Acute Assessment and Plan: * noted downward trend since admission * possibly related to hemoconcentration with admission volume depletion * follow trend of H/H (7) Essential (primary) hypertension: Code(s): I10 - Essential (primary) hypertension Status: Chronic Assessment and Plan: * reasonable control * follow trend of hemodynamics (8) Type 2 diabetes mellitus with hyperglycemia: Code(s): E11.65 - Type 2 diabetes mellitus with hyperglycemia Status: Chronic Assessment and Plan: * poor control at baseline * HgbA1c 12.0... * admitted with DKA (see #3) * follow accu-cheks * glycemic control per hospitalist Not much else to add from renal perspective -- will follow from a distance. L Subjective Date/time seen: 10/17/24 11:43 Interval history: Follow-up for acute hyponatremia. [place] remains relatively stable at this time; no apparent distress noted at the time of my visit; no other issues/events overnight or earlier this morning. Exam 2 Narrative: General: middle aged WD/WN male in NAD Heart: normal S1 and S2; no rub Lungs: clear to auscultation Abdomen: soft, nontender, nondistended, positive bowel sounds Extremities: no cyanosis or clubbing; no edema Skin: no rash Objective Data Vital Signs Vital Signs: Vital Signs Temp Pulse Resp BP Pulse Ox O2 Del Method FiO2 10/17/24 08:12 93 16 94 Room Air 10/17/24 08:12 93 10/17/24 08:09 97.8 F 93 16 142/85 H 94 10/17/24 08:00 91 10/17/24 04:35 98.1 F 95 16 150/93 H 94 10/17/24 04:00 85 10/17/24 00:00 89 10/16/24 22:55 148/93 H 10/16/24 22:48 100.3 F H 87 16 143/92 H 100 10/16/24 21:15 104 H 10/16/24 20:55 102 H 20 92 Room Air 10/16/24 20:00 104 H 10/16/24 20:00 104 H 20 92 Room Air 10/16/24 16:00 98 10/16/24 14:00 97.8 F 100 18 120/75 98 Intake/Output Intake/Output: Intake & Output 10/14/24 10/15/24 10/16/24 10/17/24 23:59 23:59 23:59 23:59 Intake Total 2340 2322.5 1420 670 Output Total 1500 1850 2000 1100 Balance 840 072.0 -764 -302 Meds/Results Medications: Active Medications Generic Name Dose Route Start Last Admin Trade Name Freq PRN Reason Stop Dose Admin Acetaminophen 650 mg 10/09/24 20:05 10/13/24 20:55 Acetaminophen 325 Mg Tablet PO 650 mg Q4H PRN Administration Mild Pain (1-3) or Fever Aspirin 81 mg 10/10/24 09:00 10/17/24 08:12 Aspirin 81 Mg Enteric Tablet PO 81 mg DAILY RUBY Administration Atorvastatin Calcium 40 mg 10/10/24 09:00 10/17/24 08:13 Atorvastatin 40 Mg Tablet BY MOUTH 40 mg DAILY RUBY Administration Dextrose 12.5 gm 10/09/24 14:14 Dextrose 50% 25 Gm/50 Ml Syringe IV PUSH PRN PRN Hypoglycemia Protocol Enoxaparin Sodium 40 mg 10/10/24 09:00 10/17/24 08:13 Enoxaparin 40 Mg/0.4 Ml Syringe SUB-Q 40 mg DAILY RUBY Administration Glucagon 1 mg 10/09/24 14:14 Glucagon For Inj 1 Mg Vial IM PRN PRN Hypoglycemia Protocol Glucose 15 gm 10/09/24 14:14 Glucose Oral Gel 15 Gm Of Glucse In 37.5 Gm Tube PO PRN PRN Hypoglycemia Protocol Dextrose 1,000 mls @ 100 mls/hr 10/09/24 14:14 Dextrose 5% 1,000 Ml IVPB PRN PRN Hypoglycemia Protocol Cefazolin Sodium 2 gm in 50 mls @ 100 mls/hr 10/14/24 12:30 10/17/24 05:37 Ancef 2 Gm/D5w 50 Ml IVPB Infused Q8HR RUBY Infusion Insulin Aspart 3 - 6 units 10/10/24 08:00 10/17/24 12:05 Insulin Aspart (*Bkc) 100 Units/Ml SUB-Q 4 units TIDWM RUBY Administration Protocol Insulin Aspart 1 - 3 units 10/10/24 21:00 10/16/24 21:16 Insulin Aspart (*Bkc) 100 Units/Ml SUB-Q Not Given HS RUBY Protocol Insulin Aspart 5 units 10/12/24 17:00 10/17/24 12:04 Insulin Aspart (*Bkc) 100 Units/Ml SUB-Q 5 units TIDWM RUBY Administration Insulin Glargine 25 units 10/12/24 21:00 10/16/24 21:16 Insulin Glargine (*Bkc) 100 Units/Ml SUB-Q 25 units HS RUBY Administration Melatonin 3 mg 10/10/24 21:00 10/16/24 21:15 Melatonin 3 Mg Tablet PO 3 mg HS RUBY Administration Metoprolol Tartrate 25 mg 10/09/24 21:05 10/17/24 08:12 Metoprolol Tartrate 25 Mg Tablet PO 25 mg Q12HR RUBY Administration Ramipril 5 mg 10/10/24 09:00 10/17/24 08:12 Ramipril 5 Mg Capsule BY MOUTH 5 mg DAILY RUBY Administration Radiology Results: ITS Impressions Head CT 10/09/24 14:57 IMPRESSION: No acute intracranial findings. Chest X-Ray 10/15/24 13:52 IMPRESSION: 1. Bilateral lung disease with appearance most consistent with mild to moderate pulmonary edema. Differential would include pneumonia. Labs Labs: Laboratory Tests 10/17/24 04:58 10/17/24 04:58 Calcium 7.7 L Magnesium 2.1 Total Bilirubin 0.4 AST 62 H ALT 41 Alkaline Phosphatase 209 H Total Protein 6.0 L Albumin 2.7 L Microbiology 10/16/24 04:50 Blood Blood Culture - Preliminary 10/16/24 04:50 Blood Blood Culture - Preliminary 10/09/24 13:39 Abscess Anaerobic Culture - Final 10/09/24 13:39 Abscess Aerobic Culture - Final Staphylococcus aureus
[2024-10-17 11:46] LABS: Glucose Point of Care 296 mg/dl (65-105)
[2024-10-17] MEDS: INSULIN ASPART (*BKC) 100 UNITS/ML SUB-Q ×3 (12:04→17:24)
--- NOTE | 2024-10-17 12:04 | PM.IMPN ---
Progress Note: A&P Assessment and Plan (1) Abscess: Code(s): L02.91 - Cutaneous abscess, unspecified Status: Acute (2) DKA (diabetic ketoacidosis): Code(s): E11.10 - Type 2 diabetes mellitus with ketoacidosis without coma Status: Resolved (3) Acute hyponatremia: Code(s): E87.1 - Hypo-osmolality and hyponatremia Status: Acute (4) Type 2 diabetes mellitus with hyperglycemia: Code(s): E11.65 - Type 2 diabetes mellitus with hyperglycemia Status: Chronic (5) Coronary artery disease: Code(s): I25.10 - Atherosclerotic heart disease of [place] coronary artery without angina pectoris Status: Acute (6) Essential (primary) hypertension: Code(s): I10 - Essential (primary) hypertension Status: Chronic (7) Mixed hyperlipidemia: Code(s): E78.2 - Mixed hyperlipidemia Status: Acute (8) Sepsis: Code(s): A41.9 - Sepsis, unspecified organism Status: Acute (9) Tachycardia: Code(s): R00.0 - Tachycardia, unspecified Status: Acute Plan patient with history of diabetes presented with DKA was initially admitted into ICU was treated with iv insulin and his GAP closed and patient was transferred out of ICU, patient also presented with 2 abscess on occipital area, one of the abscess was I&D in the ER, Patient was seen by surgery service and recommended further I&D which was performed on 10/11/2024. Patient has uncontrolled diabetes he presented with A1c of 12, he was seen by PMD in January 2024 and his A1c was 7, patient stats in winter has not been able to do his regular exercise and diet control, and feels very tired and weak, patient has hyponatremia severe with level 119 on admission. Most likely dehydration patient is being gently hydrated, nephrology consulted and following. Sodium level has continued to improved since then. Wound culture is growing Staph aureus which came back positive for MSSA. Type 2 diabetes uncontrolled A1c 12 suggested insulin regimen at discharge. Patient on combination of dapagliflozin and metformin prior to this. Bacteremia with MSSA. Blood culture from 10/11/2024 still positive. Antibiotics changed to Ancef. Since persistent echocardiogram performed which showed normal EF at 55-60% mid anterior septal hypokinetic wall, no significant valvular abnormality. Repeat blood culture obtained which is negative to date. Discussed with ID pharmacist. Plan to switch to oral at discharge. Potentially in a.m. if blood culture remains negative. Coronary artery disease status post CABG Cough chest x-ray with congestive changes. IV fluids stopped and IV Lasix given. Re-dose IV Lasix x1 10/16/2024 DVT prophylaxis resume Lovenox Subjective Date/time seen: 10/17/24 12:04 Interval history: no overnight events. no new compalints. blood culture negative to date. Review of Systems Review of Systems: All systems reviewed & are unremarkable except as noted in HPI and below ( HPI) Exam Narrative: Patient is comfortable, NAD HEENT: eyes are clear and none icteric LUNGS: Clear to auscultation no respiratory distress HEART: RR S1S2 ABD: BS+, Soft and nontender Lower extremities: no edema SKIN: nonjaundiced: occipital 2x abscesses no drainage. Neuro: grossly intact. Objective Data Vital Signs Vital Signs: Vital Signs - 24 hr 10/16/24 14:00 10/16/24 16:00 10/16/24 20:00 Temperature 97.8 F Pulse Rate 100 98 104 H Respiratory Rate 18 20 Blood Pressure 120/75 Pulse Oximetry 98 92 Oxygen Delivery Room Air Fraction of Inspired Oxygen 21 10/16/24 20:00 10/16/24 20:55 10/16/24 21:15 Temperature Pulse Rate 104 H 102 H 104 H Respiratory Rate 20 Blood Pressure Pulse Oximetry 92 Oxygen Delivery Room Air Fraction of Inspired Oxygen 21 10/16/24 22:48 10/16/24 22:55 10/17/24 00:00 Temperature 100.3 F H Pulse Rate 87 89 Respiratory Rate 16 Blood Pressure 143/92 H 148/93 H Pulse Oximetry 100 Oxygen Delivery Fraction of Inspired Oxygen 10/17/24 04:00 10/17/24 04:35 10/17/24 08:00 Temperature 98.1 F Pulse Rate 85 95 91 Respiratory Rate 16 Blood Pressure 150/93 H Pulse Oximetry 94 Oxygen Delivery Fraction of Inspired Oxygen 10/17/24 08:09 10/17/24 08:12 10/17/24 08:12 Temperature 97.8 F Pulse Rate 93 93 93 Respiratory Rate 16 16 Blood Pressure 142/85 H Pulse Oximetry 94 94 Oxygen Delivery Room Air Fraction of Inspired Oxygen 21 Intake/Output Intake/Output: Intake & Output 05/1610/15/24 10/16/24 10/17/24 23:59 23:59 23:59 23:59 Intake Total 2340 2322.5 1420 430 Output Total 1500 1850 2000 1100 Balance 840 431.1 -143 -318 Meds/Results Medications: Active Medications Generic Name Dose Route Start Last Admin Trade Name Freq PRN Reason Stop Dose Admin Acetaminophen 650 mg 10/09/24 20:05 10/13/24 20:55 Acetaminophen 325 Mg Tablet PO 650 mg Q4H PRN Administration Mild Pain (1-3) or Fever Aspirin 81 mg 10/10/24 09:00 10/17/24 08:12 Aspirin 81 Mg Enteric Tablet PO 81 mg DAILY RUBY Administration Atorvastatin Calcium 40 mg 10/10/24 09:00 10/17/24 08:13 Atorvastatin 40 Mg Tablet BY MOUTH 40 mg DAILY RUBY Administration Dextrose 12.5 gm 10/09/24 14:14 Dextrose 50% 25 Gm/50 Ml Syringe IV PUSH PRN PRN Hypoglycemia Protocol Enoxaparin Sodium 40 mg 10/10/24 09:00 10/17/24 08:13 Enoxaparin 40 Mg/0.4 Ml Syringe SUB-Q 40 mg DAILY RUBY Administration Glucagon 1 mg 10/09/24 14:14 Glucagon For Inj 1 Mg Vial IM PRN PRN Hypoglycemia Protocol Glucose 15 gm 10/09/24 14:14 Glucose Oral Gel 15 Gm Of Glucse In 37.5 Gm Tube PO PRN PRN Hypoglycemia Protocol Dextrose 1,000 mls @ 100 mls/hr 10/09/24 14:14 Dextrose 5% 1,000 Ml IVPB PRN PRN Hypoglycemia Protocol Cefazolin Sodium 2 gm in 50 mls @ 100 mls/hr 10/14/24 12:30 10/17/24 05:37 Ancef 2 Gm/D5w 50 Ml IVPB Infused Q8HR RUBY Infusion Insulin Aspart 3 - 6 units 10/10/24 08:00 10/17/24 08:15 Insulin Aspart (*Bkc) 100 Units/Ml SUB-Q Not Given TIDWM [facility] Protocol Insulin Aspart 1 - 3 units 10/10/24 21:00 10/16/24 21:16 Insulin Aspart (*Bkc) 100 Units/Ml SUB-Q Not Given HS [facility] Protocol Insulin Aspart 5 units 10/12/24 17:00 10/17/24 08:15 Insulin Aspart (*Bkc) 100 Units/Ml SUB-Q Not Given TIDWM RUBY Insulin Glargine 25 units 10/12/24 21:00 10/16/24 21:16 Insulin Glargine (*Bkc) 100 Units/Ml SUB-Q 25 units HS RUBY Administration Melatonin 3 mg 10/10/24 21:00 10/16/24 21:15 Melatonin 3 Mg Tablet PO 3 mg HS RUBY Administration Metoprolol Tartrate 25 mg 10/09/24 21:05 10/17/24 08:12 Metoprolol Tartrate 25 Mg Tablet PO 25 mg Q12HR RUBY Administration Perflutren Lipid Microsphere 0 ml 10/14/24 13:11 Perflutren Lipid Microspheres 1.5 Ml Vial Diluted To 10 Ml Total Volume IV PUSH 10/17/24 13:12 ONCE PRN adequate visualization Protocol Ramipril 5 mg 10/10/24 09:00 10/17/24 08:12 Ramipril 5 Mg Capsule BY MOUTH 5 mg DAILY RUBY Administration Radiology Results: ITS Impressions Head CT 10/09/24 14:57 IMPRESSION: No acute intracranial findings. Chest X-Ray 10/15/24 13:52 IMPRESSION: 1. Bilateral lung disease with appearance most consistent with mild to moderate pulmonary edema. Differential would include pneumonia. Labs Labs: Laboratory Results - last 24 hr 10/16/24 10/16/24 10/16/24 12:07 16:40 21:14 WBC RBC Hgb Hct MCV MCH MCHC RDW Plt Count MPV Sodium Potassium Chloride Carbon Dioxide Anion Gap BUN Creatinine Estim Creat Clear Calc Estimated GFR Glucose POC Capillary Glucose 208 H 122 H 159 H Calcium Magnesium Total Bilirubin AST ALT Alkaline Phosphatase Total Protein Albumin 10/17/24 10/17/24 10/17/24 04:58 07:40 11:44 WBC 8.6 RBC 3.58 L Hgb 9.6 L Hct 31.5 L MCV 88.0 MCH 26.8 MCHC 30.5 L RDW 13.2 Plt Count 465 H MPV 8.0 Sodium 133 L Potassium 3.4 Chloride 100 Carbon Dioxide 29 Anion Gap 4 BUN 10 Creatinine 0.64 L Estim Creat Clear Calc 107 Estimated GFR > 60 Glucose 112 H POC Capillary Glucose 105 296 H Calcium 7.7 L Magnesium 2.1 Total Bilirubin 0.4 AST 62 H ALT 41 Alkaline Phosphatase 209 H Total Protein 6.0 L Albumin 2.7 L
[2024-10-17 16:47] LABS: Glucose Point of Care 126 mg/dl (65-105)
[2024-10-17] MEDS: MELATONIN 3 MG TABLET PO (21:03)
[2024-10-17] MEDS: INSULIN GLARGINE (*BKC) 100 UNITS/ML 25 UNITS SUB-Q (21:03)
[2024-10-17 21:36] LABS: Glucose Point of Care 170 mg/dl (65-105)
[2024-10-18 05:20] LABS: Hematocrit 33.8 % (42.0-52.0); Hemoglobin 10.8 g/dL (14.0-18.0); Mean Corpuscular Hemoglobin 27.3 pg (26-34); Mean Corpuscular Volume 85.6 fl (80-100); Mean Platelet Volume 7.7 fl (7.4-10.4); Platelet Count Result 497 k/mm3 (150-375); Red Blood Count 3.95 M/mm3 (4.6-6.20); Red Cell Distribution Width 13.1 % (11.5-14.5); White Blood Count 9.6 K/mm3 (4.5-10.0)
[2024-10-18 05:37] LABS: Alanine Aminotransferase 39 U/L (6-50); Alkaline Phosphatase 211 U/L (38-126); Anion Gap 6 mmol/L (4-12); Aspartate Amino Transferase 51 U/L (17-59); Bilirubin,Total 0.4 mg/dL (0.2-1.3); Blood Urea Nitrogen 12 mg/dL (9-20); Carbon Dioxide 30 mmol/L (22-30); Chloride 102 mmol/L (98-107); Estimated CRCL calculation 102 ml/min; Estimated Glomerular Filt Rate > 60; Glucose 93 mg/dL (65-110); Magnesium 2.2 mg/dL (1.6-2.3); Potassium 3.4 mmol/L (3.4-5.0); Sodium 138 mmol/L (137-145)
[2024-10-18 05:59] VITALS: BP 151/91; PULSE 92; RESP 16; TEMP 36.9; O2SAT 90
[2024-10-18] MEDS: ceFAZolin 2 GM/D5W 50 ML 2 GM/50 ML BAG IVPB (06:07)
[2024-10-18 08:06] LABS: Glucose Point of Care 108 mg/dl (65-105)
[2024-10-18 08:27] VITALS: PULSE 101; RESP 18; O2SAT 100
[2024-10-18] MEDS: METOPROLOL TARTRATE 25 MG TABLET PO (08:27)
[2024-10-18] MEDS: ramipriL 5 MG CAPSULE BY MOUTH (08:27)
[2024-10-18] MEDS: ASPIRIN 81 MG ENTERIC TABLET PO (08:27)
[2024-10-18] MEDS: ATORVASTATIN 40 MG TABLET BY MOUTH (08:27)
[2024-10-18] MEDS: ENOXAPARIN 40 MG/0.4 ML SYRINGE SUB-Q (08:27)
[2024-10-18] MEDS: INSULIN ASPART (*BKC) 100 UNITS/ML SUB-Q ×2 (08:29→12:03)
[2024-10-18 08:40] VITALS: BP 167/92; PULSE 101; RESP 18; TEMP 36.4; O2SAT 100
[2024-10-18 11:47] LABS: Glucose Point of Care 151 mg/dl (65-105)
--- NOTE | 2024-10-18 12:12 | P.DS_ITS ---
DS: Admitting Diagnosis Discharge Date 10/18/2024 Admitting Diagnosis DKA DS: Discharge Diagnosis Discharge Diagnosis (1) Abscess: Code(s): L02.91 - Cutaneous abscess, unspecified Status: Acute (2) DKA (diabetic ketoacidosis): Code(s): E11.10 - Type 2 diabetes mellitus with ketoacidosis without coma Status: Resolved (3) Acute hyponatremia: Code(s): E87.1 - Hypo-osmolality and hyponatremia Status: Acute (4) Type 2 diabetes mellitus with hyperglycemia: Code(s): E11.65 - Type 2 diabetes mellitus with hyperglycemia Status: Chronic (5) Coronary artery disease: Code(s): I25.10 - Atherosclerotic heart disease of [place] coronary artery without angina pectoris Status: Acute (6) Essential (primary) hypertension: Code(s): I10 - Essential (primary) hypertension Status: Chronic (7) Mixed hyperlipidemia: Code(s): E78.2 - Mixed hyperlipidemia Status: Acute (8) Sepsis: Code(s): A41.9 - Sepsis, unspecified organism Status: Acute (9) Tachycardia: Code(s): R00.0 - Tachycardia, unspecified Status: Acute DS: Summary Hospital Course Hospital Course: patient with history of diabetes presented with DKA was initially admitted into ICU was treated with iv insulin and his GAP closed and patient was transferred out of ICU, patient also presented with 2 abscess on occipital area, one of the abscess was I&D in the ER, Patient was seen by surgery service and recommended further I&D which was performed on 10/11/2024. Patient has uncontrolled diabetes he presented with A1c of 12, he was seen by PMD in January 2024 and his A1c was 7, patient stats in winter has not been able to do his regular exercise and diet control, and feels very tired and weak, patient has hyponatremia severe with level 119 on admission. Most likely dehydration patient is being gently hydrated, nephrology consulted and following. Sodium level has continued to improved since then. Wound culture is growing Staph aureus which came back positive for MSSA. Type 2 diabetes uncontrolled A1c 12 suggested insulin regimen at discharge. Patient on combination of dapagliflozin and metformin prior to this. Bacteremia with MSSA. Blood culture from 10/11/2024 still positive. Antibiotics changed to Ancef. Since persistent echocardiogram performed which showed normal EF at 55-60% mid anterior septal hypokinetic wall, no significant valvular abnormality. Repeat blood culture obtained which is negative to date. Discussed with ID pharmacist. Will switch to linezolid. Blood culture remains negative Coronary artery disease status post CABG Cough chest x-ray with congestive changes. IV fluids stopped and IV Lasix given. Re-dose IV Lasix x1 10/16/2024 this is much improved. DVT prophylaxis resume Lovenox Time Spent with Patient Time attestation: Total time spent providing and/or coordinating discharge services: 35 minute Exam Narrative: Patient is comfortable, NAD HEENT: eyes are clear and none icteric LUNGS: Clear to auscultation no respiratory distress HEART: RR S1S2 ABD: BS+, Soft and nontender Lower extremities: no edema SKIN: nonjaundiced: occipital 2x abscesses no drainage. Neuro: grossly intact. DS: Data Data Completed and Pending Labs on day of discharge: Labs from last 24 hours 10/18/24 10/18/24 10/18/24 11:43 08:04 05:02 WBC 9.6 RBC 3.95 L Hgb 10.8 L Hct 33.8 L MCV 85.6 MCH 27.3 MCHC 32.0 RDW 13.1 Plt Count 497 H MPV 7.7 Sodium 138 Potassium 3.4 Chloride 102 Carbon Dioxide 30 Anion Gap 6 BUN 12 Creatinine 0.67 L Estim Creat Clear Calc 102 Estimated GFR > 60 Glucose 93 POC Capillary Glucose 151 H 108 H Calcium 8.0 L Magnesium 2.2 Total Bilirubin 0.4 AST 51 ALT 39 Alkaline Phosphatase 211 H Total Protein 7.0 Albumin 3.0 L 10/17/24 10/17/24 21:14 16:44 WBC RBC Hgb Hct MCV MCH MCHC RDW Plt Count MPV Sodium Potassium Chloride Carbon Dioxide Anion Gap BUN Creatinine Estim Creat Clear Calc Estimated GFR Glucose POC Capillary Glucose 170 H 126 H Calcium Magnesium Total Bilirubin AST ALT Alkaline Phosphatase Total Protein Albumin Preliminary micro results at discharge 10/16/24 04:50 Blood Culture - Preliminary Blood 10/16/24 04:50 Blood Culture - Preliminary Blood Imaging Radiologist's impression: ITS Impressions Head CT 10/09/24 14:57 IMPRESSION: No acute intracranial findings. Chest X-Ray 10/15/24 13:52 IMPRESSION: 1. Bilateral lung disease with appearance most consistent with mild to moderate pulmonary edema. Differential would include pneumonia. Discharge Plan Discharge Attending physician on discharge: Alexis Georges Consulting providers: Manohar Hdz; Katie Cruz Discharging Clinician: Alexis Georges Anticipated Discharge Date/Time: 10/18/24 12:13 Patient Disposition: Home Activity: as tolerated Diet: diabetic Discharge Instructions: * Wound care: Pack both scalp incisions on the posterior scalp (2 separate incisions) with 1/4 iodoform gauze and cover by 4x4 gauze and keep in place with tape or a wrap. Change daily. Shower over the wounds after removing packing daily with mild soap and water. * Call our office to schedule a follow-up appointment with Dr. Martell in 2 weeks. [phone] Patient Instructions: Antibiotic Form, Diabetic Ketoacidosis (GEN), Foot Care for People with Diabetes (GEN), Hypoglycemia in a Person with Diabetes (GEN), Basic Carbohydrate Counting (GEN), Meal Planning with the Plate Method (GEN), Meal Planning with Diabetes Exchanges (GEN), Diabetic Neuropathy (GEN), Managing Diabetes During Sick Days (GEN), Foot Ulcers in a Person with Diabetes (GEN), Diabetic Hyperglycemia (GEN), Diabetic Kidney Disease (GEN), Autoimmune Disease (GEN), Diabetes and Your Skin (GEN), Hemoglobin A1c (GEN), Chronic Wounds (GEN), Acute Wounds (GEN), Mediterranean Diet (GEN), Diabetes and Your Mouth (GEN), Hypertension and Diabetes (GEN), Diabetes and Nutrition (GEN), Diabetes and Exercise (GEN) Patient Language: Citizen Of [place] Stand Alone Forms: General Discharge Information Follow-up/Referrals: Rai Martell MD [Physician] - 2 Weeks Moo Hernadez MD [Primary Care Provider] - 1 Week Discharge Medications: New (DME) blood-glucose meter [OneTouch Verio Flex meter] Misc Qty: 1 0RF Rx Instructions: May substitute to in-stock meter and/or covered by insurance. Use As Directed (DME) OneTouch Verio test strips Strip Qty: 1 0RF Rx Instructions: May substitute to in-stock and/or covered by insurance strips. Use As Directed (DME) pen needle, diabetic 32 gauge x 5/32 Needle Qty: 1 0RF Rx Instructions: As Directed (DME) lancets [OneTouch Delica Plus Lancet] 30 gauge misc Qty: 1 0RF Rx Instructions: May substitute to in-stock and/or covered by insurance lancets. Use As Directed linezolid 600 mg tablet 600 mg PO Q12H Qty: 23 0RF insulin glargine-yfgn [Semglee(insulin glarg-yfgn)Pen] 100 unit/mL (3 mL) insulin pen 24 unit subcut HS Qty: 15 0RF insulin lispro [Humalog [place] KwikPen U-100] 100 unit/mL insulin pen, half- unit 5 unit subcut TIDWM Qty: 15 0RF Continued aspirin [Adult Low Dose Aspirin] 81 mg tablet,delayed release (DR/EC) 81 mg PO DAILY metoprolol tartrate 25 mg tablet 25 mg PO BID Qty: 60 5RF Xigduo XR 5-1,000 mg tablet, IR - ER, biphasic 24hr 1 tablet PO BID Qty: 60 3RF atorvastatin 40 mg tablet See Rx Instructions .ROUTE .COMPLEX Qty: 90 0RF Dose Instruction: TAKE 1 TABLET BY MOUTH DAILY Rx Instructions: TAKE 1 TABLET BY MOUTH DAILY ramipril 5 mg capsule See Rx Instructions .ROUTE .COMPLEX Qty: 90 0RF Dose Instruction: TAKE 1 CAPSULE BY MOUTH EVERY DAY Rx Instructions: TAKE 1 CAPSULE BY MOUTH EVERY DAY Date of admission: 10/10/24 14:36 Primary Care Provider: Moo Hernadez Admitting Provider: Hipolito Crawford Attending physician on admission: Hipolito Crawford Condition: Critical
[2024-10-18] MEDS: LINEZOLID 600 MG TABLET PO (12:32)
[2024-10-18 14:00] VITALS: BP 121/73; PULSE 93; RESP 15; TEMP 37; O2SAT 99
== END 2024-10-18 16:18 | disposition home or self-care (01) | DRG 871 ==
LOC: ANHED 15:11 → ANHICU 20:12 → ANH2MED 10-10 11:34
PROVIDERS: Family Medicine; Internal Medicine; Internal Medicine Nephrology; Nurse Practitioner Gerontology; Admitting Provider General Practice; Emergency Provider Emergency Medicine; PCP Family Medicine; Visit Provider Internal Medicine
DX: A41.01 Sepsis due to Methicillin susceptible Staphylococcus aureus (principal); E11.10 Type 2 diabetes mellitus with ketoacidosis without coma; L02.811 Cutaneous abscess of head [any part, except face]; E87.1 Hypo-osmolality and hyponatremia; I10 Essential (primary) hypertension; I25.10 Atherosclerotic heart disease of native coronary artery without angina pectoris; D64.9 Anemia, unspecified; E87.6 Hypokalemia; E78.5 Hyperlipidemia, unspecified; E11.65 Type 2 diabetes mellitus with hyperglycemia; Z79.82 Long term (current) use of aspirin; Z95.1 Presence of aortocoronary bypass graft
CPT/HCPCS: 36415; 70450; 71045; 80048; 80053; 80202; 81001; 82010; 82077; 82533; 82948; 83036; 83605; 83735; 83930; 83935; 84100; 84132; 84155; 84165; 84295; 84300; 84443; 85025; 85027; 86140; 87040; 87070; 87075; 87181; 87205; 93005; 93306; 96361; 96365; 96366; 96368; 96375; 97110; 97116; 97161; 97165; 97530; 97535; 99285; A9270; G0378; J0613; J0690; J0696; J1650; J1741; J1815; J1938; J3370; J3480; J7030; J7040; J7120

== ENCOUNTER 2025-01-19 09:37 | Outpatient (CLI) | payer OTHER, SELFPAY ==
--- OUTSIDE RECORDS SUMMARY | 2025-01-19 10:12 | XMS_ITS | Clinical Summary ---
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
--- OUTSIDE RECORDS SUMMARY | 2025-01-19 10:12 | XMS_ITS | Encounter Summary ---
Author Organization [facility] Address [address] [place] [address] Care Team Providers Care Pain Medicine Physician Name Role Phone Moo Hernadez MD Primary Care Provider + [phone] Encounter Details Date Type Department Care Team (Late st Contact Info) Description 09/11/2016 Orders Only [facility] ProviderDaphney MD [address] [place] [id number] Social History Tobacco Use Types Packs/Day Years Used Date Smoking Tobacco: Never Alcohol Use Standard Drinks/Week Comments No 0 (1 standard drink = 0.6 oz pur e alcohol) Sex and Gender Information Value Date Recorded Sex Assigned at Not on file 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
--- OUTSIDE RECORDS SUMMARY | 2025-01-19 10:12 | XMS_ITS | Clinical Summary ---
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 Gender Identity Not on file Sexual Orientation Not on file Plan of Treatment Health Maintenance Due Date Last Done Comments Hepatitis C Virus (HCV) Screening 1974 TdaP Immunization 1974 Hepatitis B Immunization (1 of 3 - 19+ 3-dose series) 1993 Cologuard 2019 Colonoscopy 2019 Colorectal Cancer Screening 2019 Immunochemical Fecal Occult Blood 2019 Pneumococcal Immunization (5 0+ years) (1 of 1 - PCV) 01/28/2024 Zoster Immunization (1 of 2) 01/28/2024 SARS-COV-2 Immunization ( - season) 2024 06/05/2021, 08/11/2020, 07/21/2020 Influenza Immunization (#1) 2025 Respiratory Syncytial Virus (RSV) Immunization (Adult) (1 - 1-dose 75+ series) 2049 Human Papillomavirus (HPV) Immunization Aged Out No longer eligible b ased on patient's age to complete this topic Meningococcal Immunization (ACWY) Aged Out No longer eligible b ased on patient's age to complete this topic Rotavirus Immunization Aged Out No lo nger eligible based on patient's age to complete this topic
[2025-01-19 11:11] LABS: MALB Creatinine Ratio < 9.4 mg/g (0-30)
== END 2025-01-19 09:38 | disposition home or self-care (01) ==
LOC: ANHLAB 09:42
PROVIDERS: PCP Family Medicine; Visit Provider Nurse Practitioner Adult Health
DX: E11.65 Type 2 diabetes mellitus with hyperglycemia (principal)
CPT/HCPCS: 82043

== ENCOUNTER 2025-02-07 15:30 | Outpatient (RCR) | payer OTHER, SELFPAY ==
[2024-12-21 08:16] VITALS: BMI 26.2
[2024-12-21 08:42] VITALS: BMI 26.2
--- NOTE | 2024-12-21 09:34 | PCDIET ---
MNT consult completed - Follow up scheduled.
[2025-01-19 08:15] VITALS: BMI 26.2
== END 2025-03-06 08:51 | disposition home or self-care (01) ==
LOC: ANHDMC 15:30
PROVIDERS: PCP Family Medicine; Visit Provider Nurse Practitioner Adult Health
DX: E11.65 Type 2 diabetes mellitus with hyperglycemia (principal); E11.10 Type 2 diabetes mellitus with ketoacidosis without coma; Z71.3 Dietary counseling and surveillance
CPT/HCPCS: 97802; 97803; G0108

== ENCOUNTER 2025-05-31 11:55 | Outpatient (CLI) | payer OTHER, SELFPAY ==
[2025-05-31 12:39] LABS: Hematocrit 42.9 % (42.0-52.0); Hemoglobin 14.3 g/dL (14.0-18.0); Immature Granulocyte Percent A 0.6 % (0-0.5); Lymphocytes Absolute Auto 2.76 K/mm3 (0.9-3.2); Mean Corpuscular HGB Conc 33.3 g/dl (32-36); Mean Corpuscular Hemoglobin 29.1 pg (26-34); Mean Corpuscular Volume 87.2 fl (80-100); Nucleated Red Blood Cells Absolute Auto 0.000 K/mm3 (0.0-0.012); Nucleated Red Blood Cells Perc 0.0 % (0.0-0.2); Platelet Count Result 218 k/mm3 (150-375); Red Blood Count 4.92 M/mm3 (4.6-6.20); White Blood Count 6.9 K/mm3 (4.5-10.0)
[2025-05-31 12:48] LABS: Iron 74 ug/dL (49-181)
[2025-05-31 12:50] LABS: Alanine Aminotransferase 27 U/L (6-50); Albumin Level 4.2 g/dL (3.5-5.1); Alkaline Phosphatase 103 U/L (38-126); Anion Gap 5 mmol/L (4-12); Aspartate Amino Transferase 25 U/L (17-59); Bilirubin,Total 0.2 mg/dL (0.2-1.3); Blood Urea Nitrogen 12 mg/dL (9-20); Calcium 9.5 mg/dL (8.4-10.2); Carbon Dioxide 30 mmol/L (22-30); Chloride 108 mmol/L (98-107); Cholesterol 130 mg/dL (0-200); Estimated Glomerular Filt Rate > 60; Glucose 136 mg/dL (65-110); HDL Direct 35 mg/dL; Magnesium 2.0 mg/dL (1.6-2.3); Potassium 5.2 mmol/L (3.4-5.0); Sodium 143 mmol/L (137-145); Total Protein 6.9 g/dL (6.3-8.2); Triglycerides 56 mg/dL (<150)
[2025-05-31 12:58] LABS: Percent Iron Saturation 24 % (20-50)
[2025-05-31 13:26] LABS: Prostate Specific Antigen 0.4 ng/mL (< OR = 4.0); Thyroid Stimulating Hormone 1.620 uIU/mL (0.465-4.680)
[2025-05-31 18:11] LABS: Vitamin B12 238.0 pg/mL (239-931)
== END 2025-05-31 11:56 | disposition home or self-care (01) ==
LOC: ANHLAB 11:56
PROVIDERS: PCP Family Medicine; Visit Provider Nurse Practitioner Adult Health
DX: E11.65 Type 2 diabetes mellitus with hyperglycemia (principal); I10 Essential (primary) hypertension; I25.10 Atherosclerotic heart disease of native coronary artery without angina pectoris; E78.2 Mixed hyperlipidemia; G62.9 Polyneuropathy, unspecified
CPT/HCPCS: 36415; 80053; 80061; 82306; 82607; 82746; 83540; 83550; 83735; 84153; 84443; 85025; G0103